=== PATIENT | female | born 1945 | race Caucasian/White ===

== ENCOUNTER 2017-05-19 22:06 | Emergency (ER) | payer MEDICARE ==
[2017-05-19] MEDS ORDERED: Albuterol/Ipratropium NEB.SOL* Albuterol 2.5 MG/Ipratropium 0.5 MG 3 ML INH ONE (22:45)
--- NOTE | 2017-05-19 22:57 | ED ---
Respiratory - HPI Summary HPI Summary: 72F presents with sinus congestion, cough for 3 weeks. She has PMH of asthma and has been using her inhaler more frequently. She has been using prednisone and doxycycline for past week. She admits to scratchy throat. She admits to chills and fatigue. She denies any chest pain. She has intermittent SOB. She denies any abdominal pain, n/v/d. She denies any swelling in her legs. She states the cough is productive. It has been intermittent for past 3 weeks. Her is sick with similar symptoms. She has history of HTN and DM. no history of CHF. - History of Current Complaint Chief Complaint: EDUpperRespComplaint Stated Complaint: COUGH/CONGESTION/DIFFCULTY BREATHING Time Seen by Provider: 05/19/17 22:35 Pain Intensity: 0 - Allergy/Home Medications Allergies/Adverse Reactions: Allergies Allergy/AdvReac Type Severity Reaction Status Date / Time Levofloxacin [From Levaquin] Allergy Intermediate Rash Verified 05/19/17 22:13 Nickel Allergy Itching Verified 05/19/17 22:13 Fluoxetine [From Prozac] AdvReac IRRITABLE Verified 05/19/17 22:13 PMH/Surg Hx/FS Hx/Imm Hx Endocrine/Hematology History: Reports: Hx Diabetes Denies: Hx Anticoagulant Therapy, Hx Thyroid Disease Cardiovascular History: Denies: Hx Congestive Heart Failure, Hx Deep Vein Thrombosis, Hx Hypertension , Hx Myocardial Infarction, Hx Pacemaker/ICD Respiratory History: Reports: Hx Asthma - No inhaler used at this time. Denies: Hx Chronic Obstructive Pulmonary Disease (COPD), Hx Lung Cancer, Hx Pneumonia, Hx Pulmonary Embolism GI History: Denies: Hx Gall Bladder Disease, Hx Gastrointestinal Bleed, Hx Ulcer, Hx Urosepsis History: Denies: Hx Kidney Stones, Hx Renal Disease Neurological History: Denies: Hx Dementia, Hx Migraine, Hx Seizures, Hx Transient Ischemic Attacks (TIA) Psychiatric History: Reports: Hx Anxiety, Hx Depression Denies: Hx Schizophrenia, Hx Bipolar Disorder - Surgical History Surgery Procedure, Year, and Place: uterine ablasion, t&a , hips, ankle, catoracts - Immunization History Date of Tetanus Vaccine: unsure Date of Influenza Vaccine: none Infectious Disease History: No Infectious Disease History: 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 Denies: Traveled Outside the [place] in Last 30 Days - Family History Known Family History: Positive: Cardiac Disease Negative: Hypertension - Social History Alcohol Use: Weekly Substance Use Type: Reports: None Smoking Status (MU): Never Smoked Tobacco Review of Systems Negative: Fever Positive: Nasal Discharge Negative: Chest Pain Positive: Shortness Of Breath, Cough All Other Systems Reviewed And Are Negative: Yes Physical Exam Triage Information Reviewed: Yes Vital Signs On Initial Exam: Initial Vitals Temp Pulse Resp BP Pulse Ox 98.2 F 86 18 111/53 97 05/19/17 22:09 05/19/17 22:09 05/19/17 22:09 05/19/17 22:09 05/19/17 22:09 Vital Signs Reviewed: Yes Appearance: Positive: Well-Appearing Skin: Positive: Warm, Dry Head/Face: Positive: Normal Head/Face Inspection Eyes: Positive: Normal, EOMI, SOLE, Conjunctiva Clear ENT: Positive: Pharynx normal, Nasal congestion, TMs normal Neck: Positive: Supple, Nontender, No Lymphadenopathy Respiratory/Lung Sounds: Positive: Breath Sounds Present, Rhonchi Cardiovascular: Positive: Normal, RRR Abdomen Description: Positive: Nontender, Soft Bowel Sounds: Positive: Present Musculoskeletal: Positive: Normal. Negative: Edema Left, Edema Right Neurological: Positive: Normal Psychiatric: Positive: Normal - Fernando Coma Scale Coma Scale Total: 15 Diagnostics - Vital Signs Vital Signs Temp Pulse Resp BP Pulse Ox 05/19/17 22:09 98.2 F 86 18 111/53 97 - Laboratory Result Diagrams: 05/19/17 23:20 05/19/17 23:20 Lab Statement: Any lab studies that have been ordered have been reviewed, and results considered in the medical decision making process. - Radiology chest Xray Interpretation: No Acute Changes Radiology Interpretation Completed By: ED Physician - EKG No standard instances Cardiac Rate: NL EKG Rhythm: Sinus Rhythm ST Segment: Normal EKG Interpretation: normal sinus rhythm EKG Comparison: No Significant Change Re-Evaluation - Re-Evaluation First Eval Re-Evaluation Time: 00:45 Change: Improved Comment: lungs CTA after treatment and feeling better Disposition - Course Course Of Treatment: 72F presents with sinus congestion, cough for 3 weeks. She has PMH of asthma and has been using her inhaler more frequently. She has been using prednisone and doxycycline for past week. She admits to scratchy throat. She admits to chills and fatigue. She denies any chest pain. She has intermittent SOB. She denies any abdominal pain, n/v/d. She denies any swelling in her legs. She states the cough is productive. It has been intermittent for past 3 weeks. Her is sick with similar symptoms. She has history of HTN and DM. no history of CHF. on exam some congestion in lungs heard. sinuses congested. ekg normal. chest xray read as normal by me. gave neb treatment. lungs CTA. labs wbc 13. normal troponin, d-dimer, bnp normal. will have continue doxycyline. add on robitussin for cough, flonase for nasal congestion, and duonebs to use at home. told to follow up with primary within 5 days. patient understand and agrees with plan. - Differential Dx - Cardiopulmonary Differential Diagnoses - Cardiopulmonary: Bronchitis, Influenza, Lower Resp Infection - Diagnoses Provider Diagnoses: Upper respiratory infection Discharge - Discharge Plan Condition: Good Disposition: HOME Prescriptions: Albuterol/Ipratropium NEB.PRIYA* [Duoneb (Albuterol 2.5 MG/Ipratropium 0.5 MG)] 1 neb INH Q6H PRN #20 neb.priya PRN Reason: Sob/Wheezing Fluticasone NASAL SPRAY 50MCG* [Flonase NASAL SPRAY 50MCG*] 1 spray BOTH NARES DAILY #1 btl Guaifenesin-Codeine [Guaiatussin AC] 5 ml PO Q6HR PRN #100 ml MDD 20ml PRN Reason: Cough Patient Education Materials: Upper Respiratory Infection (ED) Referrals: Jm Pizarro MD [Primary Care Provider] - Additional Instructions: Take cough medication 5ml (1 teaspoon) every 6 hours as needed cough Use intranasal steroid one spray each nostril once a day Use inhaler up to two puffs every 4-6 hours for cough or use nebulizer treatment every 6 hours for cough Use saline in the nose for nasal congestion and to prevent nose bleeds Use humidifier or place warm bowls of water around the room for cough Take Tylenol for pain every 6 hours Follow up with primary within 5 days Return to ED if develop any new or worsening symptoms
[2017-05-19 23:45] LABS: Hematocrit 38 % (35-47); Hemoglobin 12.6 g/dl (12.0-16.0); Mean Corpuscular HGB Conc 33 g/dl (31-36); Mean Corpuscular Hemoglobin 31 pg (27-31); Mean Corpuscular Volume 93 fL (80-97); Mean Platelet Volume 8 um3 (7.4-10.4); Red Cell Distribution Width 15 % (10.5-15); White Blood Count 13.6 10^3/ul (3.5-10.8)
[2017-05-20 00:05] LABS: Troponin I 0.01 ng/mL (<0.04)
[2017-05-20] MEDS ORDERED: guaiFENesin/CODIEN 100MG-10MG* 5 ML UDC PO ONE (00:19)
[2017-05-20 00:39] VITALS: BP 95/63
[2017-05-20 00:59] LABS: Potassium 4.1 mmol/L (3.5-5.0)
[2017-05-20 01:00] LABS: BUN/Creatinine Ratio 20.8 (8-20); EGFR African American 69.1 (>60); EGFR Non-African American 53.7 (>60); Globulin 3.1 g/dL (2-4); Total Bilirubin 0.3 mg/dL (0.2-1.0); Total Protein 7.1 g/dL (6.4-8.9)
--- NOTE | 2017-05-20 08:06 | RAD ---
INDICATION: Cough. Congestion. Dyspnea. History of asthma COMPARISON: June 22, 2013 TECHNIQUE: Dual energy PA and routine lateral views of the chest were obtained. REPORT: Elevated lung volumes. Mild prominence of interstitial markings. Small alveolar opacity at the peripheral LEFT lower lung zone contiguous with the cardiac margin is indeterminate. Negative for pleural effusion or pneumothorax. Negative for cardiomegaly. Unremarkable central pulmonary vasculature. Multilevel thoracic degenerative spondylosis. IMPRESSION: Small focal region of alveolar opacity at the LEFT lung base new compared with the prior exam may represent an inflammatory infiltrate or potentially a pulmonary nodule. Correlate with clinical assessment and consider CT for further evaluation. Results discussed with Charge Nurse Silva in the ED at 05/20/2017 8:02 AM EST
== END 2017-05-20 01:11 | disposition home or self-care (01) ==
LOC: ED 22:06
DX: J06.9 Acute upper respiratory infection, unspecified (principal); F32.9 Major depressive disorder, single episode, unspecified; F41.9 Anxiety disorder, unspecified; I10 Essential (primary) hypertension; E11.9 Type 2 diabetes mellitus without complications; K75.9 Inflammatory liver disease, unspecified
CPT/HCPCS: 36415; 71020; 80053; 83605; 83880; 84484; 85025; 85379; 93005; 94640; 99282; A9270-GY

== ENCOUNTER 2017-05-25 20:22 | Emergency (ER) | payer MEDICARE ==
[2017-05-25] MEDS ORDERED: methylPREDNISolone 125 MG* 2 ML VIAL IV ONE (23:29)
[2017-05-25] MEDS ORDERED: Albuterol/Ipratropium NEB.SOL* Albuterol 2.5 MG/Ipratropium 0.5 MG 3 ML INH ONE (23:29)
[2017-05-25] MEDS ORDERED: Benzonatate CAP* 100 MG PO ONE (23:31)
[2017-05-26 00:30] LABS: Hematocrit 35 % (35-47); Hemoglobin 11.4 g/dl (12.0-16.0); Mean Corpuscular HGB Conc 33 g/dl (31-36); Mean Corpuscular Hemoglobin 31 pg (27-31); Mean Corpuscular Volume 93 fL (80-97); Mean Platelet Volume 8 um3 (7.4-10.4); Red Blood Count 3.74 10^6/ul (4.0-5.4); Red Cell Distribution Width 14 % (10.5-15); White Blood Count 11.9 10^3/ul (3.5-10.8)
[2017-05-26 00:39] LABS: Albumin 3.7 g/dL (3.2-5.2); BUN/Creatinine Ratio 26.6 (8-20); Calcium 8.9 mg/dL (8.6-10.3); EGFR African American 75.1 (>60); EGFR Non-African American 58.4 (>60); Globulin 2.9 g/dL (2-4); Potassium 4.1 mmol/L (3.5-5.0); Total Bilirubin 0.3 mg/dL (0.2-1.0); Total Protein 6.6 g/dL (6.4-8.9); Troponin I 0.01 ng/mL (<0.04)
[2017-05-26] MEDS ORDERED: Azithromycin TAB* 250 MG PO ONE (01:05)
[2017-05-26] MEDS ORDERED: Ondansetron ODT TAB* 4 MG ONE (01:56)
[2017-05-26] MEDS ORDERED: Ondansetron ODT TAB* 4 MG PO ONE (01:57)
[2017-05-26] MEDS ORDERED: guaiFENesin/CODIEN 100MG-10MG* 5 ML UDC PO ONE (02:22)
[2017-05-26 03:05] VITALS: BP 131/58
--- NOTE | 2017-05-26 05:29 | ED ---
Nathan Davis Gabriel, scribed for Kyree Cook on 05/25/17 at 2317 . Respiratory - HPI Summary HPI Summary: This patient is a 72 year old F presenting to [facility] accompanied by with a chief complaint of a nonproductive cough since last week. She was seen for it then but states it has been getting worse. Patient reports SOB, subjective fever, and stomach ache. The patient rates the pain 6/10 in severity. - History of Current Complaint Chief Complaint: EDUpperRespComplaint Stated Complaint: COUGH, SINUS PAIN Time Seen by Provider: 05/25/17 22:54 Hx Obtained From: Patient Onset/Duration: Lasting Weeks - 1, Still Present Timing: Constant Pain Intensity: 0 Character: Cough (Nonproductive) Sputum Amount: Small Associated Signs and Symptoms: SOB - Allergy/Home Medications Allergies/Adverse Reactions: Allergies Allergy/AdvReac Type Severity Reaction Status Date / Time Levofloxacin [From Levaquin] Allergy Intermediate Rash Verified 05/19/17 22:13 Nickel Allergy Itching Verified 05/19/17 22:13 Fluoxetine [From Prozac] AdvReac IRRITABLE Verified 05/19/17 22:13 PMH/Surg Hx/FS Hx/Imm Hx Previously Healthy: No Endocrine/Hematology History: Reports: Hx Diabetes Denies: Hx Anticoagulant Therapy, Hx Thyroid Disease Cardiovascular History: Denies: Hx Atrial Fibrillation, Hx Congestive Heart Failure, Hx Deep Vein Thrombosis, Hx Hypercholesterolemia, Hx Hypertension, Hx Myocardial Infarction, Hx Pacemaker/ICD Respiratory History: Reports: Hx Asthma - No inhaler used at this time., Hx Chronic Obstructive Pulmonary Disease (COPD) Denies: Hx Lung Cancer, Hx Pneumonia, Hx Pulmonary Embolism GI History: Denies: Hx Gall Bladder Disease, Hx Gastrointestinal Bleed, Hx Ulcer, Hx Urosepsis History: Denies: Hx Kidney Stones, Hx Renal Disease Neurological History: Denies: Hx Dementia, Hx Migraine, Hx Seizures, Hx Transient Ischemic Attacks (TIA) Psychiatric History: Reports: Hx Anxiety, Hx Depression Denies: Hx Schizophrenia, Hx Bipolar Disorder - Surgical History Surgery Procedure, Year, and Place: uterine ablasion, t&a , hips, ankle, catoracts - Immunization History Date of Tetanus Vaccine: not utd Date of Influenza Vaccine: none Infectious Disease History: No Infectious Disease History: 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 Denies: Traveled Outside the [place] in Last 30 Days - Family History Known Family History: Positive: Cardiac Disease Negative: Hypertension - Social History Alcohol Use: Weekly Substance Use Type: Reports: None Smoking Status (MU): Never Smoked Tobacco Review of Systems Positive: Fever - subjective Positive: Shortness Of Breath, Cough Positive: Other - stomach ache All Other Systems Reviewed And Are Negative: Yes Physical Exam - Summary Physical Exam Summary: Appearance: Well appearing, no pain distress Skin: warm, dry, reflects adequate perfusion Head/face: normal Eyes: EOMI, SOLE ENT: normal Neck: supple, non-tender Respiratory: CTA, breath sounds present Cardiovascular: RRR, pulses symmetrical Abdomen: non-tender, soft Bowel: present Musculoskeletal: normal, strength/ROM intact Neuro: normal, sensory motor intact, A&Ox3 Triage Information Reviewed: Yes Vital Signs On Initial Exam: Initial Vitals Temp Pulse Resp BP Pulse Ox 98.0 F 100 20 135/56 95 05/25/17 20:26 05/25/17 20:26 05/25/17 20:26 05/25/17 20:26 05/25/17 20:26 Vital Signs Reviewed: Yes - Fernando Coma Scale Coma Scale Total: 15 Diagnostics - Vital Signs Vital Signs Temp Pulse Resp BP Pulse Ox 05/25/17 22:29 98.4 F 103 20 126/62 97 05/25/17 20:26 98.0 F 100 20 135/56 95 - Laboratory Lab Results: Lab Results 05/25/17 05/26/17 05/26/17 Range/Units 00:01 00:01 00:01 WBC 11.9 H (3.5-10.8) 10^3/ul RBC 3.74 L (4.0-5.4) 10^6/ul Hgb 11.4 L (12.0-16.0) g/dl Hct 35 (35-47) % MCV 93 (80-97) fL MCH 31 (27-31) pg MCHC 33 (31-36) g/dl RDW 14 (10.5-15) % Plt Count 249 (150-450) 10^3/ul MPV 8 (7.4-10.4) um3 Neut % (Auto) 42.1 (38-83) % Lymph % (Auto) 43.6 (25-47) % [place] % (Auto) 8.4 (1-9) % Eos % (Auto) 5.3 (0-6) % Baso % (Auto) 0.6 (0-2) % Absolute Neuts (auto) 5.0 (1.5-7.7) 10^3/ul Absolute Lymphs (auto) 5.2 H (1.0-4.8) 10^3/ul Absolute Monos (auto) 1.0 H (0-0.8) 10^3/ul Absolute Eos (auto) 0.6 (0-0.6) 10^3/ul Absolute Basos (auto) 0.1 (0-0.2) 10^3/ul Absolute Nucleated RBC 0 10^3/ul Nucleated RBC % 0 INR (Anticoag Therapy) 0.86 L (0.89-1.11) APTT 30.9 (26.0-36.3) seconds D-Dimer, Quantitative < 200 (Less Than 230) ng/mL Sodium (133-145) mmol/L Potassium (3.5-5.0) mmol/L Chloride (101-111) mmol/L Carbon Dioxide (22-32) mmol/L Anion Gap (2-11) mmol/L BUN (6-24) mg/dL Creatinine (0.51-0.95) mg/dL Est GFR ( Amer) (>60) Est GFR (Non-Af Amer) (>60) BUN/Creatinine Ratio (8-20) Glucose (70-100) mg/dL Lactic Acid (0.5-2.0) mmol/L Calcium (8.6-10.3) mg/dL Total Bilirubin (0.2-1.0) mg/dL AST (13-39) U/L ALT (7-52) U/L Alkaline Phosphatase (34-104) U/L Troponin I (<0.04) ng/mL B-Natriuretic Peptide 25 ( - 100) pg/mL Total Protein (6.4-8.9) g/dL Albumin (3.2-5.2) g/dL Globulin (2-4) g/dL Albumin/Globulin Ratio (1-3) Influenza A (Rapid) (Negative) Influenza B (Rapid) (Negative) 05/26/17 05/26/17 05/26/17 Range/Units 00:01 00:01 01:28 WBC (3.5-10.8) 10^3/ul RBC (4.0-5.4) 10^6/ul Hgb (12.0-16.0) g/dl Hct (35-47) % MCV (80-97) fL MCH (27-31) pg MCHC (31-36) g/dl RDW (10.5-15) % Plt Count (150-450) 10^3/ul MPV (7.4-10.4) um3 Neut % (Auto) (38-83) % Lymph % (Auto) (25-47) % [place] % (Auto) (1-9) % Eos % (Auto) (0-6) % Baso % (Auto) (0-2) % Absolute Neuts (auto) (1.5-7.7) 10^3/ul Absolute Lymphs (auto) (1.0-4.8) 10^3/ul Absolute Monos (auto) (0-0.8) 10^3/ul Absolute Eos (auto) (0-0.6) 10^3/ul Absolute Basos (auto) (0-0.2) 10^3/ul Absolute Nucleated RBC 10^3/ul Nucleated RBC % INR (Anticoag Therapy) (0.89-1.11) APTT (26.0-36.3) seconds D-Dimer, Quantitative (Less Than 230) ng/mL Sodium 137 (133-145) mmol/L Potassium 4.1 (3.5-5.0) mmol/L Chloride 103 (101-111) mmol/L Carbon Dioxide 28 (22-32) mmol/L Anion Gap 6 (2-11) mmol/L BUN 25 H (6-24) mg/dL Creatinine 0.94 (0.51-0.95) mg/dL Est GFR ( Amer) 75.1 (>60) Est GFR (Non-Af Amer) 58.4 (>60) BUN/Creatinine Ratio 26.6 H (8-20) Glucose 129 H (70-100) mg/dL Lactic Acid 1.9 (0.5-2.0) mmol/L Calcium 8.9 (8.6-10.3) mg/dL Total Bilirubin 0.30 (0.2-1.0) mg/dL AST 11 L (13-39) U/L ALT 11 (7-52) U/L Alkaline Phosphatase 59 (34-104) U/L Troponin I 0.01 (<0.04) ng/mL B-Natriuretic Peptide ( - 100) pg/mL Total Protein 6.6 (6.4-8.9) g/dL Albumin 3.7 (3.2-5.2) g/dL Globulin 2.9 (2-4) g/dL Albumin/Globulin Ratio 1.3 (1-3) Influenza A (Rapid) Negative (Negative) Influenza B (Rapid) Negative (Negative) Result Diagrams: 05/26/17 00:01 05/26/17 00:01 Lab Statement: Any lab studies that have been ordered have been reviewed, and results considered in the medical decision making process. - Radiology CXR Radiology Interpretation Completed By: Radiologist - Right lower lobe infiltrate. - EKG 12:00 Cardiac Rate: NL EKG Rhythm: Sinus Rhythm - NSR at 80 bpm EKG Interpretation: No acute changes Re-Evaluation - Re-Evaluation First Eval Re-Evaluation Time: 01:10 Change: Unchanged - Discussed lab results with patient. Disposition - Course Assessment/Plan: This patient is a 72 year old F presenting to [facility] accompanied by with a chief complaint of nonproductive cough since last week. An EKG reveals NSR at 80. CXR reveals, Right lower lobe infiltrate. Blood work was drawn with no significant abnormalities. In the ED course the patient was given Albuterol, , Benzonatate, , and Ondansetron. Patient will be discharged with prescription for Guaifenesin/ Codeine, Azithromycin, and Methylprednisolone and follow up from PCP. The patient is agreeable with this plan. - Differential Dx - Cardiopulmonary Differential Diagnoses - Cardiopulmonary: Asthma, Bronchitis, Exacerbation Of COPD, Lower Resp Infection, Myocardial Infarction, Pulmonary Edema - Diagnoses Provider Diagnoses: PNA (pneumonia), COPD exacerbation, Cough Discharge - Discharge Plan Condition: Stable Disposition: HOME Prescriptions: Azithromycin TAB* [Zithromax TAB (Z-DEBRA) 250 mg #6 tabs] 250 mg PO DAILY #4 tab Guaifenesin-Codeine [Codeine/Guaifenesin 100-10 mg/5Ml] 1 roland PO BID #10 roland MDD 2 Methylprednisolone [Medrol Dosepak 4 MG*] 0 mg PO .SEE DEBRA INSTRUCTION #1 tab Patient Education Materials: Guaifenesin (By mouth), Azithromycin (By mouth), Methylprednisolone (By mouth), Codeine (By mouth), Bronchiolitis (ED) Referrals: Katarina Gresham TOOL SMITH [Primary Care Provider] - Additional Instructions: RETURN TO THE EMERGENCY DEPARTMENT FOR CHANGING OR WORSENING SYMPTOMS.Follow up with your primary care provider in 3 days. The documentation as recorded by the Nathan glover Gabriel accurately reflects the service I personally performed and the decisions made by , Kyree Cook.
--- NOTE | 2017-05-26 07:50 | RAD ---
INDICATION: Shortness of breath. COMPARISON: Comparison is made with a prior chest x-ray study from May 19, 2017. TECHNIQUE: A portable view of the chest was obtained. FINDINGS: Cardiac and mediastinal contours appear to be within normal limits. There is a small infiltrate the right lung base. No pleural effusion is seen. IMPRESSION: SMALL RIGHT BASILAR INFILTRATE.
== END 2017-05-26 02:35 | disposition home or self-care (01) ==
LOC: ED 20:22
DX: J18.9 Pneumonia, unspecified organism (principal); J44.1 Chronic obstructive pulmonary disease with (acute) exacerbation; E11.9 Type 2 diabetes mellitus without complications; J45.909 Unspecified asthma, uncomplicated
CPT/HCPCS: 36415; 71010; 80053; 83605; 83880; 84484; 85025; 85379; 85610; 85730; 87502; 93005; 94640; 96374; 99283; A9270-GY; J2930

== ENCOUNTER 2017-09-25 18:46 | Emergency (ER) | payer MEDICARE ==
[2017-09-25] MEDS ORDERED: Cyclobenzaprine TAB* 10 MG PO ONE (22:07)
[2017-09-25] MEDS ORDERED: traMADol TAB* 50 MG PO ONE (22:07)
[2017-09-25 22:54] LABS: Urine Appearance Clear; Urine Blood Negative (Negative); Urine Color Straw; Urine Ketones Negative (Negative); Urine Protein Negative (Negative); Urine Specific Gravity 1.009 (1.010-1.030); Urine Urobilinogen Negative (Negative)
[2017-09-25] MEDS ORDERED: Dexamethasone IV* 4 MG/ML 1 ML (4 MG) IV SLOW PU ONE (23:49)
[2017-09-25] MEDS ORDERED: Diazepam SYRINGE* 5 MG/ML 2 ML SYRINGE (10 MG total) IV ONE (23:54)
[2017-09-26] MEDS ORDERED: Diazepam INJ (NF) 5 MG/ML 10 ML VIAL (50 MG TOTAL) ONE (00:17)
[2017-09-26] MEDS ORDERED: Diazepam INJ (NF) 5 MG/ML 10 ML VIAL (50 MG TOTAL) IV ONE (01:00)
[2017-09-26] MEDS ORDERED: Morphine INJ* 4 MG/ML 1 ML SYRINGE (NEW SYRINGE VERSION) IM ONE (01:46)
[2017-09-26] MEDS ORDERED: Morphine INJ* 2 MG/ML 1 ML CARPUJECT ONE (01:51)
--- NOTE | 2017-09-26 02:11 | ED ---
Back Pain - HPI Summary HPI Summary: Patient is a 72-year-old female with a history of chronic back pain presents to the ED with acute on chronic back pain after attempting exercises for her knees. She is to have knee surgery next week. She states after her physical therapy and exercises, she developed right-sided low back pain which does not radiate into the leg, denies any numbness or tingling or weakness in the extremity. While she has had a history of spinal stenosis and degenerative disc disease, she has never taken any medication for this. She is being followed by a back pain specialist. She has not tried to take any medication for the discomfort and has not been using heat. Positioning helps, but does not resolve her symptoms. Symptoms are worse with ambulation. Alleviated with certain positions intermittently. She denies any bladder or bowel dysfunction. She states she has been urinating more frequently, but denies any burning urination or other UTI like symptoms. Denies any CVA tenderness. She has never had kidney function problems or kidney stones. - History of Current Complaint Chief Complaint: EDBackInjuryPain Stated Complaint: BACK PAIN Time Seen by Provider: 09/25/17 21:55 Hx Obtained From: Patient Hx Last Menstrual Period: "years ago." Onset/Duration: Sudden Onset Onset/Duration: Started Days Ago Timing: Constant Back Pain Location: Is Discrete @ - right low back Pain Intensity: 8 Pain Scale Used: 0-10 Numeric Character: Aching Aggravating Symptom(s): Movement, Lifting, Bending, Walking Alleviating Symptom(s): Rest, Position Associated Signs And Symptoms: Positive: Negative, Pain with Weight Bearing. Negative: Weakness, Numbness, Tingling, Abdominal Pain, Bladder Incontinence, Bowel Incontinence, Weight Loss - Risk Factors AAA Risk Factors: Negative TAD Risk Factors: Negative Cauda Equina Risk Factors: Negative Epidural Abscess Risk Factors: Negative - Allergies/Home Medications Allergies/Adverse Reactions: Allergies Allergy/AdvReac Type Severity Reaction Status Date / Time celecoxib [From Celebrex] Allergy Swelling Verified 09/25/17 21:54 fluoxetine [From Prozac] Allergy irritable Verified 09/25/17 21:54 levofloxacin [From Levaquin] Allergy Rash Verified 09/25/17 21:54 nickel Allergy Itching Verified 09/25/17 21:54 Home Medications: Home Medications Albuterol inh POWDER (NF) [Proair Respiclick] 2 puff INH Q4HR PRN 09/25/17 [ History Confirmed 09/25/17] BuPROPion XL* [Bupropion XL*] 300 mg PO DAILY 09/25/17 [History Confirmed ] Cholecalciferol (Vitamin D3) [Vitamin D3] 1,000 unit PO DAILY 09/25/17 [History Confirmed 09/25/17] Omeprazole CAP* [Prilosec CAP* 20 MG] 40 mg PO BID 09/25/17 [History Confirmed 09/25/17] Simvastatin TAB(NF) [Zocor(NF)] 20 mg PO DAILY 09/25/17 [History Confirmed 09/25] metFORMIN* [Glucophage 500 MG TAB *] 1,000 mg PO BID 09/25/17 [History Confirmed 09/25/17] PMH/Surg Hx/FS Hx/Imm Hx Previously Healthy: Yes Endocrine/Hematology History: Reports: Hx Diabetes Denies: Hx Anticoagulant Therapy, Hx Thyroid Disease Cardiovascular History: Denies: Hx Atrial Fibrillation, Hx Congestive Heart Failure, Hx Deep Vein Thrombosis, Hx Hypercholesterolemia, Hx Hypertension, Hx Myocardial Infarction, Hx Pacemaker/ICD Respiratory History: Reports: Hx Asthma - No inhaler used at this time., Hx Chronic Obstructive Pulmonary Disease (COPD) Denies: Hx Lung Cancer, Hx Pneumonia, Hx Pulmonary Embolism GI History: Denies: Hx Gall Bladder Disease, Hx Gastrointestinal Bleed, Hx Ulcer, Hx Urosepsis History: Denies: Hx Kidney Stones, Hx Renal Disease Neurological History: Denies: Hx Dementia, Hx Migraine, Hx Seizures, Hx Transient Ischemic Attacks (TIA) Psychiatric History: Reports: Hx Anxiety, Hx Depression Denies: Hx Schizophrenia, Hx Bipolar Disorder - Surgical History Surgery Procedure, Year, and Place: uterine ablasion, t&a , hips, ankle, catoracts - Immunization History Date of Tetanus Vaccine: not utd Date of Influenza Vaccine: none Hx Pertussis Vaccination: No Immunizations Up to Date: Unable to Obtain/Confirm Infectious Disease History: No Infectious Disease History: 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 Denies: Traveled Outside the [place] in Last 30 Days - Family History Known Family History: Positive: Cardiac Disease Negative: Hypertension - Social History Occupation: Unemployed Lives: With Family Alcohol Use: None Hx Substance Use: No Substance Use Type: Reports: None Hx Tobacco Use: No Smoking Status (MU): Never Smoked Tobacco Review of Systems Constitutional: Negative Negative: Fever, Chills, Fatigue, Skin Diaphoresis Eyes: Negative Cardiovascular: Negative Gastrointestinal: Negative Positive: see HPI, frequency Positive: Arthralgia, Myalgia Skin: Negative Neurological: Negative All Other Systems Reviewed And Are Negative: Yes Physical Exam - Summary Physical Exam Summary: Thorough physical exam was performed, focusing on thoracic and lumbar special tests and ROM. Due to patient pain around injury, physical exam was limited. Limited ROM. Flip Test negative. Straight leg raise positive. Kernig test positive. Negative Babinksi. Hip flexion and extension, knee extension, dorsiflexion, great toe extension and plantar flexion intact. Rotating at hips limited d/t pain. Nerve roots L4-S2 reflexes intact. L1-S2 nerve root sensory intact. No saddle anesthesia. Gait normal. Triage Information Reviewed: Yes Vital Signs On Initial Exam: Initial Vitals Temp Pulse Resp BP Pulse Ox 98.3 F 64 20 161/66 96 09/25/17 18:48 09/25/17 18:48 09/25/17 18:48 09/25/17 18:48 09/25/17 18:48 Vital Signs Reviewed: Yes Appearance: Positive: Well-Appearing, Well-Nourished Skin: Positive: Warm, Skin Color Reflects Adequate Perfusion Head/Face: Positive: Normal Head/Face Inspection Eyes: Positive: EOMI, SOLE, Conjunctiva Clear Neck: Positive: Supple, No Lymphadenopathy Respiratory/Lung Sounds: Positive: Clear to Auscultation, Breath Sounds Present Cardiovascular: Positive: RRR, Pulses are Symmetrical in both Upper and Lower Extremities Musculoskeletal: Positive: Pain @ - right sided low back pain without radiation Neurological: Positive: Normal, Sensory/Motor Intact, Alert, Oriented to Person Place, Time, CN Intact II-III, Reflexes Intact, NV Bundle Intact Distally, Speech Normal Diagnostics - Vital Signs Vital Signs Temp Pulse Resp BP Pulse Ox 09/26/17 01:55 20 09/26/17 00:22 18 09/25/17 23:25 59 16 122/64 98 09/25/17 18:48 98.3 F 64 20 161/66 96 - Laboratory Lab Results: Lab Results 09/25/17 Range/Units 22:38 Urine Color Straw Urine Appearance Clear Urine pH 5.0 (5-9) Ur Specific [place] 1.009 L (1.010-1.030) Urine Protein Negative (Negative) Urine Ketones Negative (Negative) Urine Blood Negative (Negative) Urine Nitrate Negative (Negative) Urine Bilirubin Negative (Negative) Urine Urobilinogen Negative (Negative) Ur Leukocyte Esterase Negative (Negative) Urine Glucose Negative (Negative) Lab Statement: Any lab studies that have been ordered have been reviewed, and results considered in the medical decision making process. Back Pain Course/Dx - Course Course Of Treatment: During the course of treatment, the patient is evaluated for acute right-sided low back pain. Denies any history of trauma. However, while she was having her normal physical therapy for her knees she was pushing 200 pound weights with her feet and states she must have strained the back at that time. She is requesting a CT scan on this date. UA obtained which is unremarkable. She has not taken medication prior to arrival. CTA obtained which shows no fracture or subluxation. Mild level scoliosis of the lumbar spine with bony alignment maintained. There are large posterior disc osteophyte complexes at L4/L5 and L5/S1 causing severe central canal stenosis. Additional posterior disc osteophyte complexes at T11/L4 causing moderate central canal stenosis. Pain was acute at onset. During her course in the ED after maintaining ambulation into her room, after provider is evaluated in performed physical exam, she became unable to ambulate on her own and required the assistance of 2 RNs to use the restroom. She is given tramadol and Flexeril without relief of pain. She continues to complain of pain and states now it is much worse. She is given dexamethasone and Valium with relief. On further evaluation, provider discussed prescriptions for at home and she is agreeable to go home. However, upon attempting to use the restroom, she states her pain returned and is not comfortable going home at this time. Morphine 4 mg given. Continues to have a 9 out of 10, sharp and stabbing pain upon movement. Discussed the case with the hospitalist to admit for pain control. While awaiting admission, patient agrees to go home with prescriptions. I discussed at length the medications that she will be given and the side effects of those medications. I have offered an admission due to her pain, she declines this. She will return for any worsening or changing symptoms. Otherwise, she will follow-up with her PCP early next week. At home prescriptions I have given her our Valium and prednisone as these medications improved her symptoms the most while in the ED. CT results show negative for lumbar sacral spine fracture spondylolithiasis. Multilevel advanced degenerative spondylosis the posterior element osteoarthritis with associated required central canal and foraminal stenosis as described. Continues to deny bladder or bowel dysfunction on discharge. - Diagnoses Differential Diagnosis/HQI/PQRI: Positive: Herniated Disc, Strain, Sprain, Other - sciatica Provider Diagnoses: Sciatic leg pain Discharge - Sign-Out/Discharge Documenting (check all that apply): Discharge - Discharge Plan Condition: Critical Disposition: HOME Prescriptions: Diazepam TAB(*) [Valium TAB(*)] 10 mg PO Q8H PRN #12 tab MDD 3 PRN Reason: Spasms predniSONE TAB* [Deltasone TAB*] 20 mg PO DAILY #12 tab Patient Education Materials: Lumbar Spinal Stenosis (ED), Muscle Spasm (ED) Referrals: Katarina Gresham NP [Primary Care Provider] - Additional Instructions: Moist heat to the area Prednisone: Thursday and Thursday: Take 3 tabs in the morning Thursday and Thursday: Take 2 tabs in the morning Thursday and : Take 1 tab in the morning Valium: Take up to three times daily for pain - Billing Disposition and Condition Condition: CRITICAL Disposition: HOME
[2017-09-26 02:26] VITALS: BP 151/76
[2017-09-26] MEDS ORDERED: Methocarbamol TAB* 500 MG PO ONE (02:42)
--- NOTE | 2017-09-26 08:09 | RAD ---
Indication: Low back pain since injury on Thursday. Comparison: No relevant prior exams available on the [facility] PACS for comparison. Technique: Noncontrast CT lumbar sacral spine. Multiplanar reformation. Report: 1.4 cm low-density LEFT adrenal lesion is consistent with a benign adenoma. Normal variant LEFT extrarenal pelvis. Negative for hydronephrosis. Negative for paravertebral hematoma. Negative for fracture or spondylolysis at any level. Normal vertebral alignment without spondylolisthesis at any level. Diffuse advanced degenerative spondylosis and facet joint osteoarthritis. Rostrocaudal subluxation due to disc height loss with resulting secondary articulation between the spinous processes most prominent at L2-L3 through L3-L4 with secondary degenerative arthropathy. T12-L1: Moderate dorsal disc bulge osteophyte complex and posterior element hypertrophic arthropathy results in mild acquired central canal stenosis. Degenerative spondylosis and facet joint osteoarthritis results in moderate bilateral foraminal stenosis. L1-L2: Moderately large dorsal disc bulge osteophyte complex and posterior element hypertrophic arthropathy results in moderate acquired central canal stenosis and moderate bilateral foraminal stenosis. L2-L3: Moderately large dorsal disc bulge osteophyte complex and posterior element hypertrophic arthropathy results in severe acquired central canal stenosis and moderate bilateral foraminal stenosis. L3-L4: Moderately large dorsal disc bulge osteophyte complex and posterior element hypertrophic arthropathy results in severe acquired central canal stenosis and moderate bilateral foraminal stenosis. L4-L5: Large dorsal disc bulge and vertebral endplate osteophytes along with posterior element hypertrophic arthropathy results in severe acquired central canal stenosis and moderate bilateral foraminal stenosis. L5-S1: Large dorsal disc bulge osteophyte complex and posterior element hypertrophy results in severe acquired central canal stenosis and severe bilateral foraminal stenosis. IMPRESSION: 1. Negative for lumbar sacral spine fracture or spondylolisthesis. 2. Multilevel advanced degenerative spondylosis and posterior element osteoarthritis with associated acquired central canal and foraminal stenosis as described.
== END 2017-09-26 03:03 | disposition home or self-care (01) ==
LOC: ED 18:46
DX: M54.30 Sciatica, unspecified side (principal); G89.29 Other chronic pain; M54.9 Dorsalgia, unspecified
CPT/HCPCS: 72131; 81003; 96374; 96375; 99283; A9270-GY; J1100; J2270; J3360

== ENCOUNTER 2018-01-13 21:11 | Emergency (ER) | payer MEDICARE ==
[2018-01-13 21:27] VITALS: BP 135/51
[2018-01-13] MEDS ORDERED: Erythromycin OPTH OINT* APPLIC OINT LEFT EYE ONE (21:48)
--- NOTE | 2018-01-13 21:58 | UC ---
Eye Complaint HPI - HPI Summary HPI Summary: 72 yo female with left eye irritation x 1 week now red am crusty d/c some itch no photophobia some lid edema - History of Current Complaint Chief Complaint: UCEye Stated Complaint: LEFT EYE ISSUE Time Seen by Provider: 01/13/18 21:42 Hx Obtained From: Patient Hx Last Menstrual Period: "years ago." Onset/Duration: Gradual Onset, Lasting Days Timing: Constant Severity Initially: Mild Pain Intensity: 2 Pain Scale Used: 0-10 Numeric Location of Injury: Conjunctiva, Eye Lid (lower) Character: Dull Alleviating Factor(s): Nothing Associated Signs And Symptoms: Positive: Drainage (Purulent) Eyes: 1 - subconjunctival hemorrhage - Risk Factors Penetrating Injury Risk Factor: Negative Globe Rupture Risk Factors: Negative - Allergies/Home Medications Allergies/Adverse Reactions: Allergies Allergy/AdvReac Type Severity Reaction Status Date / Time celecoxib [From Celebrex] Allergy Swelling Verified 01/13/18 21:28 fluoxetine [From Prozac] Allergy irritable Verified 01/13/18 21:28 levofloxacin [From Levaquin] Allergy Rash Verified 01/13/18 21:28 nickel Allergy Itching Verified 01/13/18 21:28 PMH/Surg Hx/FS Hx/Imm Hx Endocrine History: Diabetes, Dyslipidemia Cardiovascular History: Hypertension Other History Of: Negative For: HIV, Hepatitis B, Hepatitis C, Anticoagulant Therapy - Surgical History Surgical History: Yes Surgery Procedure, Year, and Place: uterine ablasion, t&a , hips, ankle, catoracts - Family History Known Family History: Positive: Cardiac Disease Negative: Hypertension - Social History Alcohol Use: None Substance Use Type: None Smoking Status (MU): Never Smoked Tobacco Review of Systems Constitutional: Negative Skin: Negative Eyes: Drainage ENT: Negative Respiratory: Negative Cardiovascular: Negative Gastrointestinal: Negative Genitourinary: Negative Motor: Negative Neurovascular: Negative Musculoskeletal: Negative Neurological: Negative Psychological: Negative Is Patient Immunocompromised?: No All Other Systems Reviewed And Are Negative: Yes Physical Exam Triage Information Reviewed: Yes Appearance: Well-Appearing, No Pain Distress, Well-Nourished Vital Signs: Initial Vital Signs Temp 98.2 F 01/13/18 21:24 Pulse 69 01/13/18 21:24 Resp 16 01/13/18 21:24 BP 135/51 01/13/18 21:24 Pulse Ox 98 01/13/18 21:24 Vital Signs Reviewed: Yes Eyes: Positive: Conjunctiva Inflamed - L, Discharge - L, Other: - eomi/perrl, no fb noted, Eye Complaint Course/Dx - Differential Dx/Diagnosis Provider Diagnoses: left concjunctivitis. left subconjunctival hemorrhage Discharge - Sign-Out/Discharge Documenting (check all that apply): Patient Departure - Discharge Plan Condition: Stable Disposition: HOME Prescriptions: Polymyx/Trimethoprim OPTH* [Polytrim OPHTH*] 1 - 2 drop LEFT EYE QID #1 btl Patient Education Materials: Subconjunctival Hemorrhage (ED), Conjunctivitis ( ED) Referrals: Bi Govea MD [Medical Doctor] - Sarah Zepeda MD [Medical Doctor] - 1 Day (1-2 days) Additional Instructions: zaditor eye drops (OTC) I suggest you get rechecked in 1-2 days by an eye doctor try to avoid rubbing eyes no eye makeup - Billing Disposition and Condition Condition: STABLE Disposition: Home
== END 2018-01-13 22:06 | disposition home or self-care (01) ==
LOC: UCCORT 21:11
DX: H10.9 Unspecified conjunctivitis (principal); H11.32 Conjunctival hemorrhage, left eye; E11.9 Type 2 diabetes mellitus without complications; I10 Essential (primary) hypertension; Z88.6 Allergy status to analgesic agent; Z88.8 Allergy status to other drugs, medicaments and biological substances; Z88.1 Allergy status to other antibiotic agents; Z91.09 Other allergy status, other than to drugs and biological substances
CPT/HCPCS: 99212; A9270-GY; G0463

== ENCOUNTER 2018-10-01 19:27 | Emergency (ER) | payer MEDICARE ==
[2018-10-01 20:22] VITALS: BP 133/54
--- NOTE | 2018-10-01 21:02 | UC ---
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 + wheezing chest tightness w/ cough + asthma hx. doesnt know where [facility] MDI or neb is. she says she usually gets a neb treatment when she gets sick lie this and requests one here today. - History of Current Complaint Chief Complaint: UCRespiratory Stated Complaint: COUGH/CONGESTION Time Seen by Provider: 10/01/18 21:00 Hx Last Menstrual Period: "years ago." Pain Intensity: 4 - Allergies/Home Medications Allergies/Adverse Reactions: Allergies Allergy/AdvReac Type Severity Reaction Status Date / Time celecoxib [From Celebrex] Allergy Swelling Verified 10/01/18 20:11 fluoxetine [From Prozac] Allergy irritable Verified 10/01/18 20:11 levofloxacin [From Levaquin] Allergy Rash Verified 10/01/18 20:11 nickel Allergy Itching Verified 10/01/18 20:11 Home Medications: Home Medications guaiFENesin LIQ* [Robitussin*] 5 mg PO ONCE PRN 10/01/18 [History Confirmed 11/14] PMH/Surg Hx/FS Hx/Imm Hx Previously Healthy: Yes Endocrine History: Diabetes Respiratory History: Asthma Psychological History: Depression Other History Of: Negative For: HIV, Hepatitis B, Hepatitis C, Anticoagulant Therapy - Surgical History Surgical History: Yes Surgery Procedure, Year, and Place: uterine ablation, t&a , hips, ankle, cataracts - Family History Known Family History: Positive: Cardiac Disease Negative: Hypertension - Social History Alcohol Use: None Substance Use Type: None Smoking Status (MU): Never Smoked Tobacco Review of Systems All Other Systems Reviewed And Are Negative: Yes Constitutional: Positive: Fatigue. Negative: Fever, Chills Skin: Positive: Negative Eyes: Positive: Negative ENT: Positive: Sinus Congestion Respiratory: Positive: Cough. Negative: Shortness Of Breath Cardiovascular: Positive: Negative Gastrointestinal: Positive: Negative Genitourinary: Positive: Negative Motor: Positive: Negative Neurovascular: Positive: Negative Musculoskeletal: Positive: Negative Neurological: Positive: Negative Psychological: Positive: Negative Is Patient Immunocompromised?: No Physical Exam Triage Information Reviewed: Yes Appearance: Ill-Appearing - mild cough/congestion. Vital Signs: Initial Vital Signs Temp 99.3 F 10/01/18 20:14 Pulse 72 10/01/18 20:14 Resp 18 10/01/18 20:14 BP 133/54 10/01/18 20:14 Pulse Ox 97 10/01/18 20:14 Vital Signs Reviewed: Yes Eye Exam: Normal ENT: Positive: Pharynx normal, TMs normal, Uvula midline. Negative: Sinus tenderness Neck exam: Normal Neck: Positive: Supple, Nontender, No Lymphadenopathy Respiratory: Positive: Chest non-tender, No respiratory distress, No accessory muscle use, Decreased breath sounds - mild b/l. no w/r/r. imprved after cough. some discomfort w/ deep breath. Negative: Crackles, Rhonchi, Stridor, Wheezing Cardiovascular Exam: Normal Cardiovascular: Positive: RRR Abdominal Exam: Normal Abdomen Description: Positive: Soft - obese Musculoskeletal Exam: Normal Neurological Exam: Normal Psychological Exam: Normal Skin Exam: Normal Skin: Negative: Rashes Re-Evaluation - Re-Evaluation First Eval Re-Evaluation Time: 21:30 - improved breath sounds and symptoms Change: Improved Respiratory Course/Dx - Course Course Of Treatment: alb neb treatment - Differential Dx/Diagnosis Differential Diagnosis/HQI/PQRI: Asthma, Bronchitis Provider Diagnosis: Bronchitis Discharge - Sign-Out/Discharge Documenting (check all that apply): Patient Departure All imaging exams completed and their final reports reviewed: No Studies - Discharge Plan Condition: Stable Disposition: HOME Prescriptions: Albuterol HFA INHALER* [Ventolin HFA Inhaler*] 2 puff INH Q4H PRN 15 Days #1 mdi PRN Reason: Cough Referrals: Katarina Gresham NP [Primary Care Provider] - - Billing Disposition and Condition Condition: STABLE Disposition: Home
[2018-10-01] MEDS ORDERED: Albuterol 2.5 MG/3 ML NEB.SOL* (0.083%) INH ONE (21:06)
== END 2018-10-01 21:39 | disposition home or self-care (01) ==
LOC: UCCORT 19:27
DX: J45.909 Unspecified asthma, uncomplicated (principal); R09.81 Nasal congestion; E11.9 Type 2 diabetes mellitus without complications; Z88.1 Allergy status to other antibiotic agents; Z88.8 Allergy status to other drugs, medicaments and biological substances; Z91.09 Other allergy status, other than to drugs and biological substances
CPT/HCPCS: 99212; G0463

== ENCOUNTER 2019-06-02 14:17 | Emergency (ER) | payer MEDICARE ==
--- OUTSIDE RECORDS SUMMARY | 2019-06-02 14:44 | XMS REPORT | Continuity of Care Document ---
:1945 External Reference #:[id number] Author Name Paulina Cooper DO Address [address] [place] [address] Care Team Providers Name Role Phone Jan Sumner PA - Medical Care Team Information Sfdc Consultant [phone] Problems Active Problems Provider Date Jaundice Paulina Cooper DO Onset: 05/16/2019 Malignant tumor of head of pancreas Paulina Cooper DO Onset: 05/16/2019 Epigastric pain Samy Clements MD Onset: 03/29/2019 Liver function tests abnormal Samy Clements MD Onset: 03/29/2019 Vitamin deficiency Paulina Cooper DO Onset: 01/03/2019 Anemia Paulina Cooper DO Onset: 12/14/2018 Chronic obstructive lung disease Paulina Cooper DO Onset: 12/14/2018 Pulmonary embolism Paulina Cooper DO Onset: 12/14/2018 Mixed hyperlipidemia Samy Clements MD Onset: 03/29/2019 Social History Type Date Description Comments Sex Unknown Tobacco Use Start: Unknown Never Smoked Cigarettes Smoking Status Reviewed: 05/02/19 Never Smoked Cigarettes Smokeless Tobacco Never Used Smokeless Tobacco ETOH Use Denies alcohol use Tobacco Use Start: Unknown Patient denies history of smoking Recreational Drug Use Denies Drug Use Exercise Type/Frequency Exercises rarely Allergies, Adverse Reactions, Alerts Active Allergies Reaction Severity Comments Date Levaquin 11/19/2018 Nickel 11/19/2018 Prozac 11/19/2018 Celebrex 11/19/2018 Medications Active Medications SIG Qnty Indications Ordering Date Provider Benadryl Itch Stopping apply three times 30mg Boufal, 05/16/2019 2% a day to affected DO Paulina Gel area Benadryl Allergy 1 cap by mouth 45caps Boufal, 05/16/2019 25mg three times a day Paulina, DO Capsules as needed Folic Acid 1 tabl by mouth 30tabs Boufal, 01/03/2019 1mg Tablets every day Paulina, DO Metformin HCL take two tablets Unknown 500mg by mouth twice a Tablets day Simvastatin 1 by mouth every Unknown 20mg Tablets day Omeprazole 1 by mouth bid Unknown 40mg Capsules DR Cool 1 tab by mouth 60tabs Boufal, 5mg Tablets twice a day Paulina, DO [place] Calcium every other day ( Unknown alternates with 500mg Tablets Vit D ) Vitamin D 1 by mouth every Unknown 1000Unit other day ( Tablets alternates with calcium ) Bupropion Take One Tablet By Unknown Hydrochloride ER (XL) Mouth Every Day 300mg Tablets ER 24HR Creon take 1 3x daily Jan Valladares 59002Flgm Caps DR devries [address] units MD Yariel Part are all gone Creon 1 cap 3x daily Thuan [id number] MD Jarvis Caps DR Escalera Ondansetron HCL Take One Tablet By Unknown 4mg Mouth Every 4 Tablets Hours as Needed Cholestyramine Mix 1 Packet In Unknown 4gm Packet Liquid And Drink Two Times A Day Immunizations Description No Information Available Vital Signs Date Vital Result Comment 05/16/2019 3:23pm BP Systolic 137 mmHg BP Diastolic 80 mmHg Body Temperature 98.2 F Heart Rate 86 /min Respiratory Rate 18 /min Weight 196.00 lb O2 % BldC Oximetry 96 % Pain Level 4 just below center of rib cage 05/02/2019 2:31pm BP Systolic 134 mmHg BP Diastolic 86 mmHg Body Temperature 97.7 F Heart Rate 81 /min Respiratory Rate 22 /min Weight 202.12 lb O2 % BldC Oximetry 98 % Pain Level 0 Results Test Acquired Date Facility Test Result H/L Range Note Aot Request 05/19/2019 [facility] Aot Request Test(s) added 1, 2 [address] [place] [address] [phone] Tests to be added: crp magnesium CBC W/Automated 05/16/2019 [facility] White Blood 7.4 K/uL Normal 3.1-10.7 [address] [place] [place] [address] [phone] Red Blood Count 3.84 M/uL Low 3.90-5.40 Hemoglobin 11.6 gm/dL Normal 11.6-15.8 Hematocrit 37.1 % Normal 36.0-46.1 Mean Cell Volume 96.6 fl Normal 80.9-99.0 Mean Corpuscular HGB 30.2 pg Normal 25.9-32.7 Mean Corpuscular HGB Conc 31.3 g/dL Normal 30.8-34.3 Platelet Count 361 K/uL High 155-360 Red Cell Distri Width SD 53.4 fl High 36-47 Red Cell Distri Width %CV 15.1 % High 11.7-14.4 Mean Platelet Volume 11.8 fl Normal 8.9-12.4 Neut% 54.0 % Normal 40.4-72.8 Lymph % 32.7 % Normal 20.0-42.0 [place] % 6.3 % Normal 4.3-13.2 Eo% 6.1 % Normal 0.0-6.6 Bas% 0.5 % Normal 0.0-1.1 Immature Grans 0.4 % Normal 0.0-5.0 NRBC % 0.0 /100WBC < 10/ 100 WBC Neut# 3.97 K/uL Normal 1.8-7.0 Lymph # 2.41 K/uL Normal 1.0-4.0 [place] # 0.46 K/uL Normal 0.3-0.9 Eos # 0.45 K/uL Normal 0.0-0.5 Baso # 0.04 K/uL Normal 0.0-0.1 Immature Grans Absolute 0.03 K/uL NRBC # 0.00 K/uL Protime 05/16/2019 [facility] Protime 13.2 seconds Normal 12.0-14.[address] [place] [address] [phone] Inr 1.0 Normal 0.9-1.1 4 Reticulocyte 05/16/2019 [facility] Retic 33.6 pg Normal 27.9-37.0 Count,Automated [address] [place] [place] [address] [phone] Retic % 1.8 % Normal 0.5-1.8 Absolute Retic 70 K/uL Normal 24-84 Immature Retic Fraction 12.3 % Normal 2.9-15.5 Laboratory test 05/16/2019 [facility] Sedimentation Rate 101 mm/hr High 0-30 5 finding [address] [place], [place] [address] [phone] Magnesium 1.9 mg/dL Normal 1.6-2.6 Bilirubin,Direct 3.1 mg/dL High 0.0-0.2 LDH 241 U/L Normal 84-246 Uric Acid 4.6 mg/dL Normal 2.6-6.0 Glycohemoglobin 05/16/2019 [facility] Glycohemoglobin 7.2 % High 4.2-6.3 6 A1c [address] [facility] (A1c) [place] [address] [phone] eAG 160 mg/dL Laboratory test 05/16/2019 [facility] Vitamin 32.1 30.0-100.0 7 finding [address] [facility] D,25-Hydroxy ng/[place] [address] [phone] Carbohydrate Antigen 19-9 608.0 U/mL High 0-35 8 Vitamin B12 And 05/16/2019 [facility] Vitamin B12 1036 pg/mL High 193-986 Folate [address] [place] [address] [phone] Folic Acid > 20.0 ng/mL High 3.1-17.5 Laboratory test 05/16/2019 [facility] Ferritin 793 ng/mL High 8-252 finding [address] [place] [address] [phone] Iron-Tibc-%Sat 05/16/2019 [facility] Serum Iron 79 g/dL Normal 50-170 [address] [place] [address] [phone] Total Iron Binding Capacity 293 g/dL Normal 250-450 Transferrin %Saturation 27 % Normal 12-57 Comprehensive Metabolic 05/16/2019 [facility] Glucose 180 mg/dL High 74-106 Panel [address] [place] [address] [phone] BUN 14 mg/dL Normal 7-18 Creatinine 0.8 mg/dL Normal 0.6-1.3 Glom Filtration Rate, Estimate >60 mL/min >60 If >60 mL/min >60 9 BUN/Creat 17.5 ratio Sodium 137 mmol/L Normal 136-145 Potassium 4.2 mmol/L Normal 3.5-5.1 Chloride 107 mmol/L Normal 98-107 Carbon Dioxide 24 mmol/L Normal 21-32 Anion Gap 6 mEq/L Low 8-16 Calcium 9.1 mg/dL Normal 8.5-10.1 Total Protein 7.9 g/dL Normal 6.4-8.2 Albumin 3.1 g/dL Low 3.4-5.0 Globulin 4.8 g/dL High 1.9-4.3 Alb/Glob 0.6 ratio Bilirubin,Total 3.8 mg/dL High 0.2-1.0 Sgot/Ast 309 U/L High 15-37 SGPT/Alt 505 U/L High 12-78 Alkaline Phosphatase 1350 U/L Critical high 45-117 10 Urine Culture 05/02/2019 [facility] Urine Culture URETHRAL DORIS [address] [place] [address] [phone] Quantity > 100,000 CFU/mL 12 Urine Dipstick 05/02/2019 [facility] Inhouse Ua Color Dark Yellow Ua Clarity Clear Clear Ua Leuko 125 High Negative Ua Nitrite Negative Negative Ua Urobilinogen 4 High 0.2 - 1.0 E.U./dL Ua Protein 100 High Negative Ua PH 5.0 Low 6.5-7.5 Ua Blood Negative Negative Ua Specific [place] 1.030 1.010-1.030 Ua Ketones 5 High Negative Ua Bilirubin 2 High Negative Ua Glucose 500 High Negative Laboratory test 05/02/2019 [facility] Inhouse Rapid Group A Neg Pos, Neg, finding Strep Invalid Laboratory test 03/29/2019 [facility] Anti-Nuclear Negative Negative [address] Antibodies AU/[place] [address] Direct [phone] Actin (Smooth Muscle) Antibody 9 units 0-19 14 Mitochondrial (M2) Antibodies <20.0 units 0.0-20.0 15 Hzmev-5-Fyhceqpiaxl,Serum 154 mg/dL 90-200 16 Ceruloplasmin 29.9 mg/dL 19.0-39.0 Celiac Disease 03/29/2019 [facility] Immunoglobulin A 117 mg/dL 64-422 Comp AB Profile [address] [place] [address] [phone] Antigliadin Abs, IgG 1 units 0-19 17 Antigliadin Abs, IgA 2 units 0-19 18 Endomysial IgA Antibody Negative Negative t-Transglutaminase IgA <2 U/mL 0-3 19 t-Transglutaminase IgG <2 U/mL 0-5 20 Laboratory test 03/29/2019 [facility] Ferritin 587 ng/mL High 8-252 finding [address] [place] [place] [address] [phone] Hepatitis 03/29/2019 [facility] Hepatitis A Negative Negative 21 Evaluation [address] [facility] [place] [address] [phone] HBsAg Screen [Ref Lab] Negative Negative Hepatitis B Core IgM Negative Negative HCV Signal/Cutoff ratio 0.2 s/corat 0.0-0.9 22 Laboratory test 03/29/2019 [facility] Fibrinogen 693 mg/dL High 200-467 finding [address] [place] [address] [phone] Gamma Glutamyl Transpeptidase 1510 U/L Critical high 5-85 23 Amylase 99 U/L Normal 25-115 24 Lipase 2009 U/L Critical high 56-289 25 Laboratory test 03/28/2019 [facility] Ferritin 353 ng/mL High 8-252 26 finding [address] [facility] [place], [place] [address] [phone] CBC W/Automated 03/28/2019 [facility] White Blood 7.5 K/uL Normal 3.1-10.7 Diff [address] [place] [address] Count [place], [place] [address] [phone] Red Blood Count 3.95 M/uL Normal 3.90-5.40 Hemoglobin 12.1 gm/dL Normal 11.6-15.8 Hematocrit 38.5 % Normal 36.0-46.1 Mean Cell Volume 97.5 fl Normal 80.9-99.0 Mean Corpuscular HGB 30.6 pg Normal 25.9-32.7 Mean Corpuscular HGB Conc 31.4 g/dL Normal 30.8-34.3 Platelet Count 271 K/uL Normal 155-360 Red Cell Distri Width SD 53.2 fl High 36-47 Red Cell Distri Width %CV 14.8 % High 11.7-14.4 Mean Platelet Volume 11.1 fl Normal 8.9-12.4 Neut% 45.7 % Normal 40.4-72.8 Lymph % 39.3 % Normal 20.0-42.0 [place] % 6.8 % Normal 4.3-13.2 Eo% 7.2 % High 0.0-6.6 Bas% 0.5 % Normal 0.0-1.1 Immature Grans 0.5 % Normal 0.0-5.0 NRBC % 0.0 /100WBC < 10/ 100 WBC Neut# 3.43 K/uL Normal 1.8-7.0 Lymph # 2.95 K/uL Normal 1.0-4.0 [place] # 0.51 K/uL Normal 0.3-0.9 Eos # 0.54 K/uL High 0.0-0.5 Baso # 0.04 K/uL Normal 0.0-0.1 Immature Grans Absolute 0.04 K/uL NRBC # 0.00 K/uL Comprehensive Metabolic 03/28/2019 [facility] Glucose 190 mg/dL High 74-106 Panel [address] [place], [place] [address] [phone] BUN 16 mg/dL Normal 7-18 Creatinine 0.9 mg/dL Normal 0.6-1.3 Glom Filtration Rate, Estimate >60 mL/min >60 If >60 mL/min >60 27 BUN/Creat 17.7 ratio Sodium 138 mmol/L Normal 136-145 Potassium 4.5 mmol/L Normal 3.5-5.1 Chloride 105 mmol/L Normal 98-107 Carbon Dioxide 27 mmol/L Normal 21-32 Anion Gap 6 mEq/L Low 8-16 Calcium 9.2 mg/dL Normal 8.5-10.1 Total Protein 7.8 g/dL Normal 6.4-8.2 Albumin 3.7 g/dL Normal 3.4-5.0 Globulin 4.1 g/dL Normal 1.9-4.3 Alb/Glob 0.9 ratio Bilirubin,Total 0.9 mg/dL Normal 0.2-1.0 Sgot/Ast 290 U/L High 15-37 SGPT/Alt 767 U/L High 12-78 Alkaline Phosphatase 709 U/L High 45-117 Iron-Tibc-%Sat 03/28/2019 [facility] Serum Iron 126 g/dL Normal 50-170 [address] [place] [address] [phone] Total Iron Binding Capacity 322 g/dL Normal 250-450 Transferrin %Saturation 39 % Normal 12-57 Iron-Tibc-%Sat 01/10/2019 [facility] Serum Iron 74 g/dL Normal 50-[address] [place], [place] [address] [phone] Total Iron Binding Capacity 298 g/dL Normal 250-450 Transferrin %Saturation 25 % Normal 12-57 Laboratory test 01/10/2019 [facility] Ferritin 102 ng/mL Normal 8-252 finding [address] [place] [address] [phone] Vitamin B12 And 01/10/2019 [facility] Vitamin B12 358 pg/mL Normal 193-986 Folate [address] [place] [address] [phone] Folic Acid 14.5 ng/mL Normal 3.1-17.5 Laboratory test 01/10/2019 [facility] Vitamin 42.9 30.0-100.0 [address] D,25-Hydroxy ng/[place] [address] [phone] Sedimentation Rate 15 mm/hr Normal 2-55 30 CBC W/Automated 01/10/2019 [facility] White Blood 7.5 K/uL Normal 3.1-10.[address] [place] [address] [phone] Red Blood Count 3.78 M/uL Low 3.90-5.40 Hemoglobin 11.5 gm/dL Low 11.6-15.8 Hematocrit 36.8 % Normal 36.0-46.1 Mean Cell Volume 97.4 fl Normal 80.9-99.0 Mean Corpuscular HGB 30.4 pg Normal 25.9-32.7 Mean Corpuscular HGB Conc 31.3 g/dL Normal 30.8-34.3 Platelet Count 256 K/uL Normal 155-360 Red Cell Distri Width SD 49.1 fl High 36-47 Red Cell Distri Width %CV 13.7 % Normal 11.7-14.4 Mean Platelet Volume 10.6 fl Normal 8.9-12.4 Neut% 48.8 % Normal 40.4-72.8 Lymph % 38.7 % Normal 20.0-42.0 [place] % 5.9 % Normal 4.3-13.2 Eo% 5.5 % Normal 0.0-6.6 Bas% 0.7 % Normal 0.0-1.1 Immature Grans 0.4 % Normal 0.0-5.0 NRBC % 0.0 /100WBC < 10/ 100 WBC Neut# 3.65 K/uL Normal 1.8-7.0 Lymph # 2.89 K/uL Normal 1.0-4.0 [place] # 0.44 K/uL Normal 0.3-0.9 Eos # 0.41 K/uL Normal 0.0-0.5 Baso # 0.05 K/uL Normal 0.0-0.1 Immature Grans Absolute 0.03 K/uL NRBC # 0.00 K/uL Comprehensive Metabolic 01/10/2019 [facility] Glucose 129 mg/dL High 74-106 Panel [address] [place] [address] [phone] BUN 21 mg/dL High 7-18 Creatinine 0.9 mg/dL Normal 0.6-1.3 Glom Filtration Rate, Estimate >60 mL/min >60 If >60 mL/min >60 31 BUN/Creat 23.3 ratio Sodium 139 mmol/L Normal 136-145 Potassium 4.7 mmol/L Normal 3.5-5.1 Chloride 106 mmol/L Normal 98-107 Carbon Dioxide 28 mmol/L Normal 21-32 Anion Gap 5 mEq/L Low 8-16 Calcium 9.2 mg/dL Normal 8.5-10.1 Total Protein 7.3 g/dL Normal 6.4-8.2 Albumin 3.4 g/dL Normal 3.4-5.0 Globulin 3.9 g/dL Normal 1.9-4.3 Alb/Glob 0.9 ratio Bilirubin,Total 0.3 mg/dL Normal 0.2-1.0 Sgot/Ast 11 U/L Low 15-37 32 SGPT/Alt 21 U/L Normal 12-78 Alkaline Phosphatase 74 U/L Normal 45-117 Laboratory 12/14/2018 [facility] Vitamin 42.2 30.0-100.0 33, 34 test finding [address] D,25-Hydroxy ng/[place] [address] [phone] Sedimentation Rate 2 mm/hr Normal 2-55 35 DRVVT Mix 50.0 sec High 0.0-47.0 36 DRVVT Confirm 1.1 ratio 0.8-1.2 Vitamin B12 And 12/14/2018 [facility] Vitamin B12 517 pg/mL Normal 193-[address] [place] [address] [phone] Folic Acid 9.9 ng/mL Normal 3.1-17.5 Laboratory test 12/14/2018 [facility] Ferritin 114 ng/mL Normal 8-252 finding [address] [place] [address] [phone] Iron-Tibc-%Sat 12/14/2018 [facility] Serum Iron 79 g/dL Normal 50-170 [address] [place] [address] [phone] Total Iron Binding Capacity 291 g/dL Normal 250-450 Transferrin %Saturation 27 % Normal 12-57 Anticardiolipin AB 12/14/2018 [facility] Anticardiolipin < 9 0-14 37 Iga/Igg/Igm [address] Igg GPLU/[place] [address] [phone] Anticardiolipin Igm, Quant 11 MPLU/mL 0-12 38 Anticardiolipin Iga < 9 APLU/mL 0-11 39 Lupus Anticoagulant Reflex 12/14/2018 [facility] PTT-LA 42.4 sec 0.0-51.9 [address] [place] [address] [phone] DRVVT 60.8 sec High 0.0-47.0 Note: Comment: . 40 Methylenetetrahydrofolate 12/14/2018 [facility] MTHFR,Dna (SEE [address] Analysis NOTE) [place], [place] [address] [phone] 1 ACUTE PANCREATITIS S/P ERCP 2 Tests: crp magnesium Instructions: 3 C25.9 E61.1 E53.9 D68.9 4 THERAPEUTIC INR RANGE: 2.0 - 3.0 DVT, Pulmonary embolus, prophylaxis against venous thrombosis or systemic embolization in high risk patients. 2.5 - 3.5 Mechanical heart valves 5 Method: Sediplast Modified Westergren 6 Elevated levels of HbA1c suggest the need for more aggressive treatment of glycemia. The [place] [employer] recommends that a primary goal of therapy should be a HbA1c of <7% and that physicians should re-evaluate the treatment regimen in patients with HbA1c values consistently >8%. 7 Vitamin D deficiency has been defined by the [employer] of [employer] and an Endocrine Society practice guideline as a level of serum 25-OH vitamin D less than 20 ng/mL (1,2). The Endocrine Society went on to further define vitamin D insufficiency as a level between 21 and 29 ng/mL (2). 1. IOM ([employer] of Medicine). 2010. Dietary reference intakes for calcium and D. [place]: The National [employer] Press. 2. Timothy MF, Augie NOGUERA, Apolinar LANDA, et al. Evaluation, treatment, and prevention of vitamin D deficiency: an Endocrine Society clinical practice guideline. JCEM. 2010; 96(7):1911-30. Performed at: [facility] [employer] [address] [id number] Solar Panel Installer: Kristy Enriquez MD, Phone: [phone] [employer] Electrochemiluminescence Immunoassay (ECLIA) Values obtained with different assay methods or kits cannot be used interchangeably. Results cannot be interpreted as absolute evidence of the presence or absence of malignant disease. Performed at: [facility] [employer] [id number] Solar Panel Installer: Kristy Enriquez MD, Phone: [phone] Note: Persistent reduction for 3 months or more in an eGFR <60 mL/min/1.73 m2 defines CKD. Patients with eGFR values >/=60 mL/min/1.73 m2 may also have CKD if evidence of persistent proteinuria is present. The original MDRD equation for estimated GFR is not valid for patients less than 18 years of age. Additional information may be found at www.kdoqi.org. 10 Result confirmed by repeat analysis. 11 R10.30 12 > 100,000 CFU/mL 13 NO DX R10.10 I26.99 R10.9, R94.5 14 Negative 0 - 19 Weak positive 20 - 30 Moderate to strong positive >30 Actin Antibodies are found in 52-85% of patients with autoimmune hepatitis or chronic active hepatitis and in 22% of patients with primary biliary cirrhosis. 15 Negative 0.0 - 20.0 Equivocal 20.1 - 24.9 Positive >24.9 Mitochondrial (M2) Antibodies are found in 90-96% of patients with primary biliary cirrhosis. 16 Effective April 25, 2019 [id number], Serum reference interval will be changing to: Age Male Female 0 - 7 days 102 - 186 102 - 186 8 days - 30 days 73 - 187 73 - 187 31 days - 5 years 86 - 173 86 - 173 6 years - 12 years 99 - 156 99 - 156 13 years - 40 years 95 - 164 100 - 188 >40 years 101 - 187 101 - 187 Performed at: - [facility] [address] [id number] Solar Panel Installer: Kristy Enriquez MD, Phone: [phone] 17 Negative 0 - 19 Weak Positive 20 - 30 Moderate to Strong Positive >30 18 Negative 0 - 19 Weak Positive 20 - 30 Moderate to Strong Positive >30 19 Negative 0 - 3 Weak Positive 4 - 10 Positive >10 Tissue Transglutaminase (tTG) has been identified as the endomysial antigen. Studies have demonstr- ated that endomysial IgA antibodies have over 99% specificity for gluten sensitive enteropathy. 20 Negative 0 - 5 Weak Positive 6 - 9 Positive >9 21 NO DX R10.10 I26.99 R10.9 NO DX R10.10 I26.99 R10.9, R94.5 NO DX R10.10 I26.99 R10.9, R94.5 22 INFCE Result Units: s/co ratio Negative: < 0.8 Indeterminate: 0.8 - 0.9 Positive: > 0.9 The CDC recommends that a positive HCV antibody result be followed up with a HCV Nucleic Acid Amplification test (725642). Performed at: - [facility] [address] [id number] Solar Panel Installer: Kristy Enriquez MD, Phone: [phone] 23 CALLED LIPASE, [place] [address]/29/19 by LAB.LM 24 CALLED LIPASE[place] [address]/29/19 by LAB.LM 25 CALLED LIPASE[place] [address]/29/19 by LAB.LM 26 I26.99,D64.9,E56.9 27 Note: Persistent reduction for 3 months or more in an eGFR <60 mL/min/1.73 m2 defines CKD. Patients with eGFR values >/=60 mL/min/1.73 m2 may also have CKD if evidence of persistent proteinuria is present. The original MDRD equation for estimated GFR is not valid for patients less than 18 years of age. Additional information may be found at www.kdoqi.org. 28 I26.99 J44.9 D64.9 29 Vitamin D deficiency has been defined by the [employer] of Medicine and an Endocrine Society practice guideline as a level of serum 25-OH vitamin D less than 20 ng/mL (1,2). The Endocrine Society went on to further define vitamin D insufficiency as a level between 21 and 29 ng/mL (2). 1. IOM ([place] of Medicine). 2010. Dietary reference intakes for calcium and D. [place]: The National Academies Press. 2. Timothy MF, Augie NOGUERA, Apolinar LANDA, et al. Evaluation, treatment, and prevention of vitamin D deficiency: an Endocrine Society clinical practice guideline. JCEM. 2010; 96(7):1911-30. Performed at: - [facility] [address] [id number] Solar Panel Installer: Kristy Enriquez MD, Phone: [phone] 30 This result was obtained with an ESR method that is not based on the standard Westergren Method. When comparing results obtained from the traditional Westergren ESR and this method it is important to refer to the reference range for each method. Method: Capillary Photometry 31 Note: Persistent reduction for 3 months or more in an eGFR <60 mL/min/1.73 m2 defines CKD. Patients with eGFR values >/=60 mL/min/1.73 m2 may also have CKD if evidence of persistent proteinuria is present. The original MDRD equation for estimated GFR is not valid for patients less than 18 years of age. Additional information may be found at www.kdoqi.org. 32 Values below the stated reference ranges of AST and ALT can be seen in normal populations. Clinical correlation is suggested. 33 I26.99 J44.9 SEE NOTE 34 Vitamin D deficiency has been defined by the [employer] of Medicine and an Endocrine Society practice guideline as a level of serum 25-OH vitamin D less than 20 ng/mL (1,2). The Endocrine Society went on to further define vitamin D insufficiency as a level between 21 and 29 ng/mL (2). 1. IOM ([place] of Medicine). 2010. Dietary reference intakes for calcium and D. [place]: The National Academies Press. 2. Timothy MF, Augie [place], Apolinar LANDA, et al. Evaluation, treatment, and prevention of vitamin D deficiency: an Endocrine Society clinical practice guideline. JCEM. 2010; 96(7):1911-30. Performed at: [address] [id number] Solar Panel Installer: Kristy Enriquez MD, Phone: [phone] 35 This result was obtained with an ESR method that is not based on the standard Westergren Method. When comparing results obtained from the traditional Westergren ESR and this method it is important to refer to the reference range for each method. Method: Capillary Photometry 36 Performed at: [facility] [employer] [id number] Solar Panel Installer: Xu Emery MD, Phone: [phone] 37 Negative: <15 Indeterminate: 15 - 20 Low-Med Positive: >20 - 80 High Positive: >80 38 Negative: <13 Indeterminate: 13 - 20 Low-Med Positive: >20 - 80 High Positive: >80 39 Negative: <12 Indeterminate: 12 - 20 Low-Med Positive: >20 - 80 High Positive: >80 Performed at: [address] [id number] Solar Panel Installer: Kristy Enriquez MD, Phone: [phone] 12/18/18 1012: Note: previously reported as: Performed at: [address] [id number] Solar Panel Installer: Xu Emery MD, Phone: [phone] Amended result called to: [] - 12/18/18 at 1012 No lupus anticoagulant was detected. These results are consistent with specific inhibitors to one or more common pathway factors (X, V, II or fibrinogen). Performed at: [facility] [employer] [id number] Solar Panel Installer: Xu Emery MD, Phone: [phone] Result: [id number] Two copies of the same mutation ([id number]) identified Interpretation: This individual is homozygous for the MTHFR [id number] variant (two copies). The MTHFR C677T variant was not identified. This MTHFR result is not associated with an increased risk of hyperhomocysteinemia, venous thrombosis, coronary artery disease, or recurrent loss. However, hyperhomocysteinemia may also occur due to mutations in enzymes other than MTHFR that are involved in homocysteine metabolism, or arise due to acquired factors. In the evaluation of vascular and obstetric risk, consider measuring fasting homocysteine. Other risk factors may be detected through systematic clinical laboratory analysis. Methylenetetrahydrofolate reductase (MTHFR) is a gardiner enzyme in the folate pathway and is responsible for the metabolism of homocysteine. There are two common variants in the MTHFR gene, c.655c>T (p.Bjp373Fomj), referred to as C677T, and c.1286A>C (p.Ifl710Gsy), referred to as T6891G. Individuals homozygous for C677T (two copies of the variant), have decreased activity of the MTHFR enzyme and a predisposition to hyperhomocysteinemia, particularly when deficient in folate. Hyperhomocysteinemia is a risk factor for venous thrombosis and coronary artery disease and is associated with an increased risk of open neural tube defects. The C677T variant does not independently increase risk of these conditions in the absence of hyperhomocysteinemia. The [id number] variant is not associated with elevated homocysteine levels unless a C677T variant is also present; however, the clinical significance of heterozygosity for both C677T and O3418C is controversial. Population data suggest that these two variants are not present on the same chromosome, but rare exceptions have been reported of triple variant MTHFR genotypes (ie. homozygous for one variant and heterozygous for the other). Homozygosity for C677T has an estimated frequency of 10% to 15% in Caucasians and 25% in Hispanics. Additional information: Dietary folic acid, B6 and B12 supplementation has been suggested to lower homocysteine levels in some people. Folic acid supplementation has been shown to reduce the occurrence of neural tube defects. Genetic counselors are available for health care providers to discuss results at [phone] [place]. Methodology: DNA analysis of the MTHFR gene was performed by PCR amplification followed by restriction analysis. The diagnostic sensitivity is >99% for both. Molecular-based testing is highly accurate, but as in any laboratory test, rare diagnostic errors may occur. All test results must be combined with clinical information for the most accurate interpretation. This test was developed and its performance characteristics determined by [facility]. It has not been cleared or approved by the Food and Drug Administration. References: Verao LD, Alejandro Q. Am J Epidemiol 2000; 151(9):862-877. Elena MM, Pablito JA. Arch Pathol Lab Med 2007; 131(6):872-884. Frosst P et al. Yomaira María Elena 1995; 10(1):111-113. Hickey SE et al. María Elena Med 2013; 15(2):153-156. Bandera C et al. Obstet Gynecol 2011; 118(3):730-740. Luis Antonio B et al. Eur J Epidemiol 2013; 28(8):621-647. August Emerson, PhD, FACMG Erika Arreguin, PhD, FACMG Yanet TiradoS., PhD, FACMG Luzma Maria, PhD, FACMG Jihan Goddard, PhD, FACMG Sam Atkins, PhD, FAC Performed at: [facility] [address] [id number] [employer] Panel Installer: Aime Foster MD, Phone: [phone] Procedures Date Code Description Status 12/06/2018 49667 Bronchospasm Provocation Evaluation Multi Spirometric Completed Determinati 12/06/2018 97027 Spirometry Completed Medical Devices Description No Information Available Encounters Type Date Location Provider Dx Diagnosis Office Visit 05/02/2019 [facility] Corinne, J02.9 Acute pharyngitis, 2:15p IRVIN Moore unspecified R10.30 Lower abdominal pain, unspecified Office Visit 03/29/2019 2:00p Samy Baldwin MD R94.5 Abnormal results of liver function studies R10.13 Epigastric pain Office Visit 03/29/2019 10:00a Oncology Office Kenneth, I26.99 Other pulmonary Paulina, DO embolism without acute cor pulmonale R10.13 Epigastric pain R94.5 Abnormal results of liver function studies Office Visit 01/03/2019 12:30p Oncology Office Boufal, I26.99 Other pulmonary Paulina, DO embolism without acute cor pulmonale E56.9 Vitamin deficiency, unspecified Office Visit 12/29/2018 9:20a Pulmonology Mavis Salmeron, J44.9 Chronic obstructive PA pulmonary disease, unspecified I26.99 Other pulmonary embolism without acute cor pulmonale Office Visit 12/14/2018 1:00p Oncology Office Boufal, I26.99 Other pulmonary Paulina, DO embolism without acute cor pulmonale I26.99 Other pulmonary embolism without acute cor pulmonale J44.9 Chronic obstructive pulmonary disease, unspecified J44.9 Chronic obstructive pulmonary disease, unspecified D64.9 Anemia, unspecified D64.9 Anemia, unspecified Assessments Date Code Description Provider 05/16/2019 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 or infection, unspecified 04/02/2019 K21.9 Gastro-esophageal reflux disease Art Nascimento M.D. without esophagitis 04/02/2019 R74.0 Nonspecific elevation of levels of Art Nascimento M.D. transaminase and lactic acid dehydrogenase [LDH] 04/02/2019 R17 Unspecified jaundice Art Nascimento M.D. 04/01/2019 R10.13 Epigastric pain Art Nascimento M.D. 03/31/2019 E11.9 Type 2 diabetes mellitus without Art Nascimento M.D. complications 03/31/2019 R10.13 Epigastric pain Art Nascimento M.D. 03/31/2019 K21.9 Gastro-esophageal reflux disease Art Nascimento M.D. without esophagitis 03/30/2019 I26.99 Other pulmonary embolism without BoufalHillaryPaulina, DO acute cor pulmonale 03/30/2019 Z79.01 detention (current) use of BoufalHillaryPaulina, DO anticoagulants 03/30/2019 E11.9 Type 2 diabetes mellitus without Art Nascimento M.D. complications 03/30/2019 R10.13 Epigastric pain Art Nascimento M.D. 03/30/2019 K21.9 Gastro-esophageal reflux disease Art Nascimento M.D. without esophagitis 03/29/2019 K85.90 Acute pancreatitis without necrosis Art Nascimento M.D. or infection, unspecified 03/29/2019 I26.99 Other pulmonary embolism without Boufal, Paulina, DO acute cor pulmonale 03/29/2019 R94.5 Abnormal results of liver function Samy Clements MD studies 03/29/2019 E11.9 Type 2 diabetes mellitus without Art Nascimento M.D. complications 03/29/2019 R10.13 Epigastric pain Paulina Cooper, DO 03/29/2019 R10.13 Epigastric pain Samy Clements MD 03/29/2019 Z79.01 detention (current) use of Art Nascimento M.D. anticoagulants 03/29/2019 R94.5 Abnormal results of liver function Paulina Cooper DO studies 03/28/2019 I26.99 Other pulmonary embolism without Boufal, Paulina, DO acute cor pulmonale 03/28/2019 I26.99 Other pulmonary embolism without Oncology Nurse acute cor pulmonale 03/28/2019 D64.9 Anemia, unspecified Boufal, Paulina, DO 03/28/2019 D64.9 Anemia, unspecified Oncology Nurse 03/28/2019 E56.9 Vitamin deficiency, unspecified Boufal, Paulina, DO 03/28/2019 E56.9 Vitamin deficiency, unspecified Oncology Nurse 01/10/2019 I26.99 Other pulmonary embolism without Boufal, Paulina, DO acute cor pulmonale 01/10/2019 I26.99 Other pulmonary embolism without Oncology Nurse acute cor pulmonale 01/10/2019 J44.9 Chronic obstructive pulmonary Boufal, Paulina, DO disease, unspecified 01/10/2019 J44.9 Chronic obstructive pulmonary Oncology Nurse disease, unspecified 01/10/2019 D64.9 Anemia, unspecified Boufal, Paulina, DO 01/10/2019 D64.9 Anemia, unspecified Oncology Nurse 01/03/2019 I26.99 Other pulmonary embolism without Boufal, Paulina, DO acute cor pulmonale 01/03/2019 E56.9 Vitamin deficiency, unspecified Boufal, Paulina, DO 12/29/2018 J44.9 Chronic obstructive pulmonary Mavis Salmeron, PA disease, unspecified 12/29/2018 I26.99 Other pulmonary embolism without Jaron, Mavis, PA acute cor pulmonale 12/14/2018 I26.99 Other pulmonary embolism without Boufal, Paulina, DO acute cor pulmonale 12/14/2018 I26.99 Other pulmonary embolism without Boufal, Paulina, DO acute cor pulmonale 12/14/2018 J44.9 Chronic obstructive pulmonary Boufal, Paulina, DO disease, unspecified 12/14/2018 J44.9 Chronic obstructive pulmonary Boufal, Paulina, DO disease, unspecified 12/14/2018 D64.9 Anemia, unspecified Boufal, Paulina, DO 12/14/2018 D64.9 Anemia, unspecified Boufal, Paulina, DO 12/06/2018 J44.9 Chronic obstructive pulmonary Jaison Lewis MD disease, unspecified Plan of Treatment Future Appointment(s):05/27/2019 12:00 pm - Boufal, Paulina, DO at Oncology Pnmscs2907/06/2019 10:00 am - Mavis Salmeron PA at Pulmonology Functional Status Description No Information Available Mental Status Description No Information Available Referrals Refer to Dr Reason for Referral Status Appt Date Ever March MD port placement - adenocarcinoma of Scheduled pancreas [address] [id number] [phone]
--- OUTSIDE RECORDS SUMMARY | 2019-06-02 14:44 | XMS REPORT | Continuity of Care Document ---
:1945 External Reference #:[id number] Author Name Paulina Cooper DO (transmitted by agent of provider Kaitlyn Camargo) Address [address] [place] [id number] Care Team Providers Name Role Phone Jan Sumner PA - Medical Care Team Information Clinical Molecular Geneticist [phone] Problems Active Problems Provider Date Jaundice Paulina [...] Benadryl Itch Stopping apply three times 30mg Kenneth, 05/16/2019 2% a day to affected DO [...] Creon take 1 3x daily Jan Valladares [id number] Caps DR devries [address] units MD Jw Saldivar are all gone Creon 1 cap 3x daily Thuan [id number] MD Jarvis Caps DR Escalera Ondansetron HCL Take One Tablet By Unknown 4mg Mouth Every 4 Tablets Hours as Needed Cholestyramine Mix 1 Packet In Unknown 4gm Packet Liquid And Drink Two Times A Day Immunizations Description No Information Available Vital Signs Date Vital Result Comment 05/27/2019 11:44am BP Systolic 155 mmHg BP Diastolic 56 mmHg Body Temperature 98.2 F Heart Rate 96 /min Respiratory Rate 18 /min Weight 192.38 lb O2 % BldC Oximetry 98 % Ra Pain Level 2 mid abd 05/16/2019 3:23pm BP Systolic 137 mmHg BP Diastolic 80 mmHg Body Temperature 98.2 F Heart Rate 86 /min Respiratory Rate 18 /min Weight 196.00 lb O2 % BldC Oximetry 96 % Pain Level 4 just below center of rib cage Results Test Acquired Date Facility Test Result H/L Range Note CBC 05/27/2019 [facility] White Blood 8.9 K/uL Normal 3.1-10.7 1 W/Automated [address] Count Diff [place], [place] [id number] [phone] Red Blood Count 3.42 M/uL Low 3.90-5.40 Hemoglobin 10.2 gm/dL Low 11.6-15.8 Hematocrit 32.6 % Low 36.0-46.1 Mean Cell Volume 95.3 fl Normal 80.9-99.0 Mean Corpuscular HGB 29.8 pg Normal 25.9-32.7 Mean Corpuscular HGB Conc 31.3 g/dL Normal 30.8-34.3 Platelet Count 447 K/uL High 155-360 Red Cell Distri Width SD 50.3 fl High 36-47 Red Cell Distri Width %CV 14.5 % High 11.7-14.4 Mean Platelet Volume 11.0 fl Normal 8.9-12.4 Neut% 57.8 % Normal 40.4-72.8 Lymph % 27.2 % Normal 20.0-42.0 [place] % 8.0 % Normal 4.3-13.2 Eo% 5.7 % Normal 0.0-6.6 Bas% 0.3 % Normal 0.0-1.1 Immature Grans 1.0 % Normal 0.0-5.0 NRBC % 0.0 /100WBC < 10/ 100 WBC Neut# 5.15 K/uL Normal 1.8-7.0 Lymph # 2.43 K/uL Normal 1.0-4.0 [place] # 0.71 K/uL Normal 0.3-0.9 Eos # 0.51 K/uL High 0.0-0.5 Baso # 0.03 K/uL Normal 0.0-0.1 Immature Grans Absolute 0.09 K/uL NRBC # 0.00 K/uL Comprehensive Metabolic 05/27/2019 [facility] Glucose 311 mg/dL High 74-106 Panel [address] [place], [place] [id number] [phone] BUN 14 mg/dL Normal 7-18 Creatinine 0.9 mg/dL Normal 0.6-1.3 Glom Filtration Rate, Estimate >60 mL/min >60 If >60 mL/min >60 2 BUN/Creat 15.5 ratio Sodium 133 mmol/L Low 136-145 Potassium 4.2 mmol/L Normal 3.5-5.1 Chloride 100 mmol/L Normal 98-107 Carbon Dioxide 26 mmol/L Normal 21-32 Anion Gap 7 mEq/L Low 8-16 Calcium 9.4 mg/dL 8.5-10.1 Total Protein 8.1 g/dL 6.4-8.2 Albumin 2.5 g/dL Low 3.4-5.0 Globulin 5.6 g/dL High 1.9-4.3 Alb/Glob 0.4 ratio Bilirubin,Total 0.7 mg/dL Normal 0.2-1.0 Sgot/Ast 32 U/L Normal 15-37 SGPT/Alt 82 U/L High 12-78 Alkaline Phosphatase 817 U/L High 45-117 Laboratory 05/27/2019 [facility] Gamma Glutamyl 672 U/L High 5-85 test finding [address] [place] [address] [phone] Aot Request 05/19/2019 [facility] Aot Request Test(s) 3, [address] [place] [address] [phone] Tests to be added: crp magnesium Protime 05/16/2019 [facility] Protime 13.2 seconds Normal 12.0-14.[address] [place] [address] [phone] Inr 1.0 Normal 0.9-1.1 6 Reticulocyte 05/16/2019 [facility] Retic 33.6 pg Normal 27.9-37.0 Count,Automated [address] [place] [address] [phone] Retic % 1.8 % Normal 0.5-1.8 Absolute Retic 70 K/uL Normal 24-84 Immature Retic Fraction 12.3 % Normal 2.9-15.5 Laboratory test 05/16/2019 [facility] Sedimentation Rate 101 mm/hr High 0-30 [address] [place] [address] [phone] Magnesium 1.9 mg/dL Normal 1.6-2.6 Bilirubin,Direct 3.1 mg/dL High 0.0-0.2 LDH 241 U/L Normal 84-246 Uric Acid 4.6 mg/dL Normal 2.6-6.0 Glycohemoglobin 05/16/2019 [facility] Glycohemoglobin 7.2 % High 4.2-6.[address] (A1c) [place] [address] [phone] eAG 160 mg/dL Laboratory test 05/16/2019 [facility] Vitamin 32.1 30.0-100.0 9 finding [address] D,25-Hydroxy ng/[place] [address] [phone] Carbohydrate Antigen 19-9 608.0 U/mL High 0-35 10 Vitamin B12 And 05/16/2019 [facility] Vitamin B12 1036 pg/mL High 193-986 Folate [address] [place], [place] [address] [phone] Folic Acid > 20.0 ng/mL High 3.1-17.5 Laboratory test 05/16/2019 [facility] Ferritin 793 ng/mL High 8-252 finding [address] [place] [address] [phone] Iron-Tibc-%Sat 05/16/2019 [facility] Serum Iron 79 g/dL Normal 50-170 [address] [place] [address] [phone] Total Iron Binding Capacity 293 g/dL Normal 250-450 Transferrin %Saturation 27 % Normal 12-57 Comprehensive Metabolic 05/16/2019 [facility] Glucose 180 mg/dL High 74-106 Panel [address] [place], [place] [address] [phone] BUN 14 mg/dL Normal 7-18 Creatinine 0.8 mg/dL Normal 0.6-1.3 Glom Filtration Rate, Estimate >60 mL/min >60 If >60 mL/min >60 11 BUN/Creat 17.5 ratio Sodium 137 mmol/L Normal [...] Alkaline Phosphatase 1350 U/L Critical high 45-117 12 CBC W/Automated 05/16/2019 [facility] White Blood 7.4 K/uL Normal 3.1-10.[address] [place] [address] [phone] Red Blood Count 3.84 M/uL Low 3.90-5.40 [...] 40.4-72.8 Lymph % 32.7 % Normal 20.0-42.0 [place] % 6.3 % Normal 4.3-13.2 Eo% 6.1 % Normal 0.0-6.6 Bas% 0.5 % Normal 0.0-1.1 Immature Grans 0.4 % Normal 0.0-5.0 NRBC % 0.0 /100WBC < 10/ 100 WBC Neut# 3.97 K/uL Normal 1.8-7.0 Lymph # 2.41 K/uL Normal 1.0-4.0 [place] # 0.46 K/uL Normal 0.3-0.9 Eos # 0.45 K/uL Normal 0.0-0.5 Baso # 0.04 K/uL Normal 0.0-0.1 Immature Grans Absolute 0.03 K/uL NRBC # 0.00 K/uL Urine Culture 05/02/2019 [facility] Urine Culture URETHRAL DORIS [address] [place] [address] [phone] Quantity > 100,000 CFU/mL 14 Urine Dipstick 05/02/2019 [facility] Ua Color Dark Yellow Ua Clarity Clear Clear Ua Leuko 125 High Negative Ua Nitrite Negative Negative Ua Urobilinogen 4 High 0.2 - 1.0 E.U./dL Ua Protein 100 High Negative Ua PH 5.0 Low 6.5-7.5 Ua Blood Negative Negative Ua Specific [place] 1.030 1.010-1.030 Ua Ketones 5 High Negative Ua Bilirubin 2 High Negative Ua Glucose 500 High Negative Laboratory test 05/02/2019 [facility] Rapid Group A Neg Pos, Neg, finding Strep Invalid Laboratory test 03/29/2019 [facility] Anti-Nuclear Negative Negative [address] Antibodies AU/[place] [address] Direct [phone] Actin (Smooth Muscle) Antibody 9 units 0-19 16 Mitochondrial (M2) Antibodies <20.0 units 0.0-20.0 17 Ansiv-5-Nvjqfvfhczz,Serum 154 mg/dL 90-200 18 Ceruloplasmin 29.9 mg/dL 19.0-39.0 Celiac Disease 03/29/2019 [facility] Immunoglobulin A 117 mg/dL 64-422 Comp AB Profile [address] [place] [address] [phone] Antigliadin Abs, IgG 1 units 0-19 19 Antigliadin Abs, IgA 2 units 0-19 20 Endomysial IgA Antibody Negative Negative t-Transglutaminase IgA <2 U/mL 0-3 21 t-Transglutaminase IgG <2 U/mL 0-5 22 Laboratory test 03/29/2019 [facility] Ferritin 587 ng/mL High 8-252 finding [address] [place] [address] [phone] Hepatitis 03/29/2019 [facility] Hepatitis A Negative Negative [address] Antibody IgM [place], [place] [id number] [phone] HBsAg Screen [Ref Lab] Negative Negative Hepatitis B Core IgM Negative Negative HCV Signal/Cutoff ratio 0.2 s/corat 0.0-0.9 24 Laboratory test 03/29/2019 [facility] Fibrinogen 693 mg/dL High 200-467 finding [address] [place], [place] [address] [phone] Gamma Glutamyl Transpeptidase 1510 U/L Critical high 5-85 25 Amylase 99 U/L Normal 25-115 26 Lipase 2009 U/L Critical high 56-289 27 CBC W/Automated 03/28/2019 [facility] White 7.5 K/uL Normal 3.1-10.7 28 Diff 134 [facility] [place] [place] [address] Count [phone] Red Blood Count 3.95 M/uL Normal 3.90-5.40 [...] 40.4-72.8 Lymph % 39.3 % Normal 20.0-42.0 [place] % 6.8 % Normal 4.3-13.2 Eo% 7.2 % High 0.0-6.6 Bas% 0.5 % Normal 0.0-1.1 Immature Grans 0.5 % Normal 0.0-5.0 NRBC % 0.0 /100WBC < 10/ 100 WBC Neut# 3.43 K/uL Normal 1.8-7.0 Lymph # 2.95 K/uL Normal 1.0-4.0 [place] # 0.51 K/uL Normal 0.3-0.9 Eos # 0.54 K/uL High 0.0-0.5 Baso # 0.04 K/uL Normal 0.0-0.1 Immature Grans Absolute 0.04 K/uL NRBC # 0.00 K/uL Comprehensive Metabolic 03/28/2019 [facility] Glucose 190 mg/dL High 74-106 Panel [address] [place] [address] [phone] BUN 16 mg/dL Normal 7-18 Creatinine 0.9 mg/dL Normal 0.6-1.3 Glom Filtration Rate, Estimate >60 mL/min >60 If >60 mL/min >60 29 BUN/Creat 17.7 ratio Sodium 138 mmol/L Normal [...] Phosphatase 709 U/L High 45-117 Iron-Tibc-%Sat 03/28/2019 [facility] Serum Iron 126 g/dL Normal 50-170 [address] [place] [address] [phone] Total Iron Binding Capacity 322 g/dL Normal 250-450 Transferrin %Saturation 39 % Normal 12-57 Laboratory test 03/28/2019 [facility] Ferritin 353 ng/mL High 8-252 finding [address] [place] [address] [phone] Iron-Tibc-%Sat 01/10/2019 [facility] Serum Iron 74 g/dL Normal 50-170 30 [address] [place] [address] [phone] Total Iron Binding Capacity 298 g/dL Normal 250-450 Transferrin %Saturation 25 % Normal 12-57 Laboratory test 01/10/2019 [facility] Ferritin 102 ng/mL Normal 8-252 finding [address] [place] [address] [phone] Vitamin B12 And 01/10/2019 [facility] Vitamin B12 358 pg/mL Normal 193-986 Folate [address] [place] [address] [phone] Folic Acid 14.5 ng/mL Normal 3.1-17.5 Laboratory test 01/10/2019 [facility] Vitamin 42.9 30.0-100.0 31 finding [address] D,25-Hydroxy ng/[place] [address] [phone] Sedimentation Rate 15 mm/hr Normal 2-55 32 CBC W/Automated 01/10/2019 [facility] White Blood 7.5 K/uL Normal 3.1-10.[address] [place] [address] [phone] Red Blood Count 3.78 M/uL Low 3.90-5.40 [...] 40.4-72.8 Lymph % 38.7 % Normal 20.0-42.0 [place] % 5.9 % Normal 4.3-13.2 Eo% 5.5 % Normal 0.0-6.6 Bas% 0.7 % Normal 0.0-1.1 Immature Grans 0.4 % Normal 0.0-5.0 NRBC % 0.0 /100WBC < 10/ 100 WBC Neut# 3.65 K/uL Normal 1.8-7.0 Lymph # 2.89 K/uL Normal 1.0-4.0 [place] # 0.44 K/uL Normal 0.3-0.9 Eos # 0.41 K/uL Normal 0.0-0.5 Baso # 0.05 K/uL Normal 0.0-0.1 Immature Grans Absolute 0.03 K/uL NRBC # 0.00 K/uL Comprehensive Metabolic 01/10/2019 [facility] Glucose 129 mg/dL High 74-[address] [place] [address] [phone] BUN 21 mg/dL High 7-18 Creatinine 0.9 mg/dL Normal 0.6-1.3 Glom Filtration Rate, Estimate >60 mL/min >60 If >60 mL/min >60 33 BUN/Creat 23.3 ratio Sodium 139 mmol/L Normal [...] Normal 0.2-1.0 Sgot/Ast 11 U/L Low 15-37 34 SGPT/Alt 21 U/L Normal 12-78 Alkaline Phosphatase 74 U/L Normal 45-117 Laboratory 12/14/2018 [facility] Vitamin 42.2 30.0-100.0 35, 36 test finding 134 [facility] D,25-Hydroxy ng/[place] [address] [phone] Sedimentation Rate 2 mm/hr Normal 2-55 37 DRVVT Mix 50.0 sec High 0.0-47.0 38 DRVVT Confirm 1.1 ratio 0.8-1.2 Vitamin B12 And 12/14/2018 [facility] Vitamin B12 517 pg/mL Normal 193-986 Folate [address] [place] [address] [phone] Folic Acid 9.9 ng/mL Normal 3.1-17.5 Laboratory test 12/14/2018 [facility] Ferritin 114 ng/mL Normal 8-252 finding [address] [place] [address] [phone] Iron-Tibc-%Sat 12/14/2018 [facility] Serum Iron 79 g/dL Normal 50-170 [address] [place] [address] [phone] Total Iron Binding Capacity 291 g/dL Normal 250-450 Transferrin %Saturation 27 % Normal 12-57 Anticardiolipin AB 12/14/2018 [facility] Anticardiolipin < 9 0-14 39 Iga/Igg/Igm [address] [facility] Igg GPLU/[place] [address] [phone] Anticardiolipin Igm, Quant 11 MPLU/mL 0-12 40 Anticardiolipin Iga < 9 APLU/mL 0-11 41 Lupus Anticoagulant Reflex 12/14/2018 [facility] PTT-LA 42.4 sec 0.0-51.[address] [place] [address] [phone] DRVVT 60.8 sec High 0.0-47.0 Note: Comment: . 42 Methylenetetrahydrofolate 12/14/2018 [facility] MTHFR,Dna (SEE [address] Analysis NOTE) [place] [address] [phone] 1 C25.9 K85.90 2 Note: Persistent reduction for 3 months or more in an eGFR <60 mL/min/1.73 m2 defines CKD. Patients with eGFR values >/=60 mL/min/1.73 m2 may also have CKD if evidence of persistent proteinuria is present. The original MDRD equation for estimated GFR is not valid for patients less than 18 years of age. Additional information may be found at www.kdoqi.org. 3 ACUTE PANCREATITIS S/P ERCP 4 Tests: crp magnesium Instructions: 5 C25.9 E61.1 E53.9 D68.9 6 THERAPEUTIC INR RANGE: 2.0 - 3.0 DVT, Pulmonary embolus, prophylaxis against venous thrombosis or systemic embolization in high risk patients. 2.5 - 3.5 Mechanical heart valves 7 Method: Sediplast Modified Westergren 8 Elevated levels of HbA1c suggest the need for more aggressive treatment of glycemia. The [place] [employer] recommends that a primary goal of therapy should be a HbA1c of <7% and that physicians should re-evaluate the treatment regimen in patients with HbA1c values consistently >8%. 9 Vitamin D deficiency has been defined by the [place] [employer] and an Endocrine Society practice guideline as a level of serum 25-OH vitamin D less than 20 ng/mL (1,2). The Endocrine Society went on to further define vitamin D insufficiency as a level between 21 and 29 ng/mL (2). 1. IOM ([place] of [employer]). 2010. Dietary reference intakes for calcium and D. [place]: The National Academies Press. 2. Timothy GRISSOM, Augie NOGUERA, Apolinar LANDA, et al. Evaluation, treatment, and prevention of vitamin D deficiency: an Endocrine Society clinical practice guideline. JCEM. 2010; 96(7):1911-30. Performed at: [address] [id number] Security Intern: Kristy Enriquez MD, Phone: [phone] 10 [facility] Electrochemiluminescence Immunoassay (ECLIA) Values obtained with different assay methods or kits cannot be used interchangeably. Results cannot be interpreted as absolute evidence of the presence or absence of malignant disease. Performed at: [address] [id number] Security Intern: Kristy Enriquez MD, Phone: [phone] 11 Note: Persistent reduction for 3 months or more in an eGFR <60 mL/min/1.73 m2 defines CKD. Patients with eGFR values >/=60 mL/min/1.73 m2 may also have CKD if evidence of persistent proteinuria is present. The original MDRD equation for estimated GFR is not valid for patients less than 18 years of age. Additional information may be found at www.kdoqi.org. 12 Result confirmed by repeat analysis. 13 R10.30 14 > 100,000 CFU/mL 15 NO DX R10.10 I26.99 R10.9, R94.5 16 Negative 0 - 19 Weak positive 20 - 30 Moderate to strong positive >30 Actin Antibodies are found in 52-85% of patients with autoimmune hepatitis or chronic active hepatitis and in 22% of patients with primary biliary cirrhosis. 17 Negative 0.0 - 20.0 Equivocal 20.1 - 24.9 Positive >24.9 Mitochondrial (M2) Antibodies are found in 90-96% of patients with primary biliary cirrhosis. 18 Effective April 25, 2019 Cawku-0-Qhanbccalza, Serum reference interval will be changing to: [...] - 187 101 - 187 Performed at: [facility] [facility] [id number] Security Intern: Kristy Enriquez MD, Phone: [phone] 19 Negative 0 - 19 Weak Positive 20 - 30 Moderate to Strong Positive >30 20 Negative 0 - 19 Weak Positive 20 - 30 Moderate to Strong Positive >30 21 Negative 0 - 3 Weak Positive 4 - 10 Positive >10 Tissue Transglutaminase (tTG) has been identified as the endomysial antigen. Studies have demonstr- ated that endomysial IgA antibodies have over 99% specificity for gluten sensitive enteropathy. 22 Negative 0 - 5 Weak Positive 6 - 9 Positive >9 23 NO DX R10.10 I26.99 R10.9 NO DX R10.10 I26.99 R10.9, R94.5 NO DX R10.10 I26.99 R10.9, R94.5 24 INFCE Result Units: s/co ratio Negative: < 0.8 Indeterminate: 0.8 - 0.9 Positive: > 0.9 The CDC recommends that a positive HCV antibody result be followed up with a HCV Nucleic Acid Amplification test (066382). Performed at: [facility] [id number] Security Intern: Kristy Enriquez MD, Phone: [phone] 25 CALLED LIPASE, GGT TO MAGNUS C. AT 1446 03/29/19 by LAB.LM 26 CALLED LIPASE, GGT TO MAGNUS C. AT 1446 03/29/19 by LAB.LMH 27 CALLED LIPASE, GGT TO MAGNUS C. AT 1446 03/29/19 by LAB.LMH 28 I26.99,D64.9,E56.9 29 Note: Persistent reduction for 3 months or more in an eGFR <60 mL/min/1.73 m2 defines CKD. Patients with eGFR values >/=60 mL/min/1.73 m2 may also have CKD if evidence of persistent proteinuria is present. The original MDRD equation for estimated GFR is not valid for patients less than 18 years of age. Additional information may be found at www.kdoqi.org. 30 I26.99 J44.9 D64.9 31 Vitamin D deficiency has been defined by the [place] [employer] and an Endocrine Society practice guideline as a level of serum 25-OH vitamin D less than 20 ng/mL (1,2). The Endocrine Society went on to further define vitamin D insufficiency as a level between 21 and 29 ng/mL (2). 1. IOM ([place] [employer]). 2010. Dietary reference intakes for calcium and D. [place]: The National Academies Press. 2. Augie Escoto, Apolinar LANDA, et al. Evaluation, treatment, and prevention of vitamin D deficiency: an Endocrine Society clinical practice guideline. JCEM. 2010; 96(7):1911-. Performed at: [address] [id number] Security Intern: Kristy Enriquez MD, Phone: [phone] 32 This result was obtained with an ESR method that is not based on the standard Westergren Method. When comparing results obtained from the traditional Westergren ESR and this method it is important to refer to the reference range for each method. Method: Capillary Photometry 33 Note: Persistent reduction for 3 months or more in an eGFR <60 mL/min/1.73 m2 defines CKD. Patients with eGFR values >/=60 mL/min/1.73 m2 may also have CKD if evidence of persistent proteinuria is present. The original MDRD equation for estimated GFR is not valid for patients less than 18 years of age. Additional information may be found at www.kdoqi.org. 34 Values below the stated reference ranges of AST and ALT can be seen in normal populations. Clinical correlation is suggested. 35 I26.99 J44.9 SEE NOTE 36 Vitamin D deficiency has been defined by the [place] [employer] and an Endocrine Society practice guideline as a level of serum 25-OH vitamin D less than 20 ng/mL (1,2). The Endocrine Society went on to further define vitamin D insufficiency as a level between 21 and 29 ng/mL (2). 1. IOM ([place] [employer]). 2010. Dietary reference intakes for calcium and D. [place]: The National Academies Press. 2. Augie Escoto, Apolinar LANDA, et al. Evaluation, treatment, and prevention of vitamin D deficiency: an Endocrine Society clinical practice guideline. JCEM. 2010; 96(7):1911-30. Performed at: [address] [id number] Security Intern: Kristy Enriquez MD, Phone: [phone] 37 This result was obtained with an ESR method that is not based on the standard Westergren Method. When comparing results obtained from the traditional Westergren ESR and this method it is important to refer to the reference range for each method. Method: Capillary Photometry 38 Performed at: [address] [id number] Security Intern: Xu Emery MD, Phone: [phone] Negative: <15 Indeterminate: 15 - 20 Low-Med Positive: >20 - 80 High Positive: >80 40 Negative: <13 Indeterminate: 13 - 20 Low-Med Positive: >20 - 80 High Positive: >80 41 Negative: <12 Indeterminate: 12 - 20 Low-Med Positive: >20 - 80 High Positive: >80 Performed at: [address] [id number] Security Intern: Kristy Enriquez MD, Phone: [phone] 42 12/18/18 1012: Note: previously reported as: Performed at: [address] [id number] Security Intern: Xu Emery MD, Phone: [phone] Amended result called to: [] - 12/18/18 at 1012 No lupus anticoagulant was detected. These results are consistent with specific inhibitors to one or more common pathway factors (X, V, II or fibrinogen). Performed at: [address] [id number] Security Intern: Xu Emery MD, Phone: [phone] 43 Result: [id number] Two copies of the same mutation ([id number]) identified Interpretation: This individual is homozygous for the MTHFR J3313B variant (two copies). The MTHFR C677T variant [...] common variants in the MTHFR gene, c.655c>T (p.Mxk934Gymd), referred to as C677T, and c.1286A>C (p.Est558Ddm), referred to as Q3313C. Individuals homozygous for C677T (two copies of [...] conditions in the absence of hyperhomocysteinemia. The M8045S variant is not associated with elevated homocysteine levels unless a C677T variant is also present; however, the clinical significance of heterozygosity for both C677T and M5114P is controversial. Population data suggest that these [...] health care providers to discuss results at [address] [place] [address]. Methodology: DNA analysis of the MTHFR gene was performed by PCR amplification followed by restriction analysis. The diagnostic sensitivity is >99% for both. Molecular-based testing is highly accurate, but as in any laboratory test, rare diagnostic errors may occur. All test results must be combined with clinical information for the most accurate interpretation. This test was developed and its performance characteristics determined by [employer]. It has not been cleared or approved by the Food and Drug Administration. References: Verao LD, Alejandro Q. Am J Epidemiol 2000; 151(9):862-877. Elena ANDERSON, Pablito BAEZ. Arch Pathol Lab Med 2007; 131(6):872-884. Frosst P et al. Yomaira María Elena 1995; 10(1):111-113. Oseas SE et al. María Elena Med 2013; 15(2):153-156. Viet C et al. Obstet Gynecol 2011; 118(3):730-740. Luis Antonio B et al. Eur J Epidemiol 2013; 28(8):621-647. August Emerson, PhD, FACMG Erika Arreguin, PhD, FACMG Yanet TiradoSCecy, PhD, FACMG Luzma Maria, PhD, FAC Jihan Goddard, PhD, FAC Sam Atkins, PhD, FAC Performed at: - [facility] [address] [facility], [facility], [place] [id number] Security Intern: Aime Foster MD, Phone: [phone] Procedures Date Code Description Status 05/20/2019 57759 Fluoroscopic Central Venous Access Device Placement Or Completed Removal 05/20/2019 50331 Insertion Tunneled Cent Venous Cathr W Subcut Port 5 Yrs Completed Or Oldr 12/06/2018 11288 Bronchospasm Provocation Evaluation Multi Spirometric Completed Determinati 12/06/2018 59878 Spirometry Completed Medical Devices Description No Information Available Encounters Type Date Location Provider Dx Diagnosis Office Visit 05/16/2019 Oncology Office Paulina Cooper, C25.0 Malignant neoplasm 3:00p DO of head of pancreas I26.99 Other pulmonary embolism without acute cor pulmonale R17 Unspecified jaundice Office Visit 05/02/2019 2:15p Walk In [facility], J02.9 Acute pharyngitis, Clinic [facility] Moore unspecified R10.30 Lower abdominal pain, unspecified Office Visit 03/29/2019 2:00p Samy Baldwin MD R94.5 Abnormal results of liver function studies R10.13 Epigastric pain Office Visit 03/29/2019 10:00a Oncology Office [place], I26.99 Other pulmonary Paulina, DO embolism without acute cor pulmonale R10.13 Epigastric pain R94.5 Abnormal results of liver function studies Office Visit 01/03/2019 12:30p Oncology Office Kenneth, I26.99 Other pulmonary Paulina, DO embolism without acute cor pulmonale E56.9 Vitamin deficiency, unspecified Office Visit 12/29/2018 9:20a Pulmonology Mavis Salmeron, J44.9 Chronic obstructive PA pulmonary disease, unspecified I26.99 Other pulmonary embolism without acute cor pulmonale Office Visit 12/14/2018 1:00p Oncology Office Kenneth, I26.99 Other pulmonary Paulina, DO embolism without acute cor pulmonale I26.99 Other pulmonary embolism without acute cor pulmonale J44.9 Chronic obstructive pulmonary disease, unspecified J44.9 Chronic obstructive pulmonary disease, unspecified D64.9 Anemia, unspecified D64.9 Anemia, unspecified Assessments Date Code Description Provider 05/27/2019 C25.0 Malignant neoplasm of head of Paulina Cooper, DO pancreas 05/27/2019 I26.99 Other pulmonary embolism without Borosaal, Paulina, DO acute cor pulmonale 05/21/2019 K85.90 Acute pancreatitis without necrosis Deandra Guerrero M.D. or infection, unspecified 05/21/2019 C25.9 Malignant neoplasm of pancreas, Deandra Guerrero M.D. unspecified 05/21/2019 I26.99 Other pulmonary embolism without Deandra Guerrero M.D. acute cor pulmonale 05/21/2019 E11.9 Type 2 diabetes mellitus without Deandra Guerrero M.D. complications 05/20/2019 K85.90 Acute pancreatitis without necrosis Ever March M.D. or infection, unspecified 05/20/2019 K85.90 Acute pancreatitis without necrosis Deandra Guerrero M.D. or infection, unspecified 05/20/2019 C25.9 Malignant neoplasm of pancreas, Ever March M.D. unspecified 05/20/2019 C25.9 Malignant neoplasm of pancreas, Deandra Guerrero M.D. unspecified 05/20/2019 I26.99 Other pulmonary embolism without Deandra Guerrero M.D. acute cor pulmonale 05/20/2019 E11.9 Type 2 diabetes mellitus without Deandra Guerrero M.D. complications 05/19/2019 K85.90 Acute pancreatitis without necrosis Ever March M.D. or infection, unspecified 05/19/2019 K85.90 Acute pancreatitis without necrosis Deandra Guerrero M.D. or infection, unspecified 05/19/2019 C25.9 Malignant neoplasm of pancreas, Ever March M.D. unspecified 05/19/2019 C25.9 Malignant neoplasm of pancreas, Deandra Guerrero M.D. unspecified 05/19/2019 I26.99 Other pulmonary embolism without Deandra Guerrero M.D. acute cor pulmonale 05/19/2019 E11.9 Type 2 diabetes mellitus without Deandra Guerrero M.D. 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 anticoagulants 03/29/2019 R94.5 Abnormal results of liver function Winnie Coopert, DO studies 03/28/2019 I26.99 Other pulmonary embolism [...] Paulina, DO 12/29/2018 J44.9 Chronic obstructive pulmonary Juliorath, Mavis, PA disease, unspecified 12/29/2018 I26.99 Other pulmonary embolism without Walrath, Mavis, PA acute cor pulmonale 12/14/2018 I26.99 [...] MD disease, unspecified Plan of Treatment Future Appointment(s):06/01/2019 8:00 am - Infusion Chair 5 at Infusion Uiifrq9806/01/2019 8:15 am - Vanita Landon RESTAURANT BARTENDER at Infusion Soiidg1005/31/2019 9:45 am - Oncology Nurse at Oncology Zllwdy2607/06/2019 10:00 am - Mavis Salmeron PA at Pulmonology Functional Status Description No Information Available Mental Status Description No Information Available Referrals Refer to Dr Reason for Referral Status Appt Date Ever March MD port placement - adenocarcinoma of Scheduled pancreas [address] [place] [address] [phone]
--- OUTSIDE RECORDS SUMMARY | 2019-06-02 14:44 | XMS REPORT | Summary of Care ---
:1945 Author Organization [facility] Address [address] [place] [address] Care Team Providers Name Role Phone Jan Sumner Primary Care Provider Reason for Visit Auth/Cert Status Reason Specialty Diagnoses / Procedures Referred By Contact Referred To Contact Diagnoses Malignant neoplasm of pancreas, unspecified location of malignancy [C25.9] Brett Lopez MD [address] [place] [id number] Email: [email or web address] Encounter Details Date Type Department Care Team Description 05/18/2019 Hospital Encounter 01W [facility] Brett Lopez MD [address] [place] [address] [place], [place] [id number] Allergies Active Allergy Reactions Severity Noted Date Comments Celecoxib Other (See Comments) 05/04/2019 Ankle swelling Levofloxacin Rash Low 05/04/2019 Turned "red" Nickel Itching Medium 05/04/2019 Fluoxetine Hcl Other (See Comments) 05/04/2019 Irritable documented as of this encounter (statuses as of 05/18/2019) Medications Medication Sig Dispensed Refills Start Date End Date Status metFORMIN HCl 1000 MG Take 1,000 mg by 0 Active Oral Tablet mouth Two times (GLUCOPHAGE) daily with meals Omeprazole 20 MG Oral Take 20 mg by 0 Active Capsule Delayed mouth Two Times Release (PriLOSEC) Daily buPROPion HCl ER (XL) Take 150 mg by 0 Active 150 MG Oral Tablet mouth every Extended Release 24 morning Hour (WELLBUTRIN XL) Folic Acid 1 MG Oral Take 1 mg by 0 Active Tablet (FOLVITE) mouth daily Simvastatin 20 MG Oral Take 20 mg by 0 Active Tablet (ZOCOR) mouth nightly Jdkjceg-Nohmkx-Bqcmcky Take by mouth 0 Active e (CREON 10 PO) Calcium Take 1 tablet by 0 Active Carbonate-Vitamin D mouth daily 500-200 MG-UNIT Oral Tablet (OSCAL-500) Ventolin HFA 108 (90 INHALE ONE TO 0 10/23/2018 Active Base) MCG/ACT TWO PUFFS BY Inhalation Aerosol MOUTH EVERY 4 TO Solution 6 HOURS NEEDED FOR FOR SHORTNESS OF BREATH Omeprazole 40 MG Oral Take 40 mg by 5 04/14/2019 Active Capsule Delayed mouth Two Times Release (PRILOSEC) Daily Eliquis 5 MG Oral Take 5 mg by 0 04/12/2019 Active Tablet mouth Two Times Daily Cholestyramine 4 GM Take 1 packet by 0 Active Oral Packet (QUESTRAN) mouth Three times daily with meals Ondansetron HCl 4 MG Take 4 mg by 0 Active Oral Tablet (ZOFRAN) mouth every 8 (eight) hours as needed for Nausea Pancrelipase Take 1 capsule 270 capsule 3 05/12/2019 Active (Hzy-Uejl-Fhgb) 84864 by mouth Three UNIT Oral Capsule times daily with Delayed Release meals Particles (CREON) documented as of this encounter (statuses as of 05/18/2019) Active Problems Problem Noted Date Adenocarcinoma of pancreas 05/12/2019 documented as of this encounter (statuses as of 05/18/2019) Social History Tobacco Use Types Packs/Day Years Used Date Never Smoker 0 Smokeless Tobacco: Never Used Alcohol Use Drinks/Week oz/Week Comments Not Currently Sex Assigned at Date Recorded Female 05/12/2019 10:18 AM EST Job Start Date Occupation Industry Not on file Not on file Not on file Travel History Travel Start Travel End No recent travel history available. documented as of this encounter Last Filed Vital Signs Vital Sign Reading Time Taken Comments Blood Pressure 117/69 05/18/2019 6:10 PM EST Pulse 68 05/18/2019 6:10 PM EST Temperature 36.7 05/18/2019 3:40 PM EST C (98.1 F) Respiratory Rate 16 05/18/2019 6:10 PM EST Oxygen Saturation 100% 05/18/2019 6:10 PM EST Inhaled Oxygen Concentration - - Weight 88.9 kg (196 lb) 05/18/2019 11:00 AM EST Height 154.9 cm (5' 1") 05/18/2019 11:00 AM EST Body Mass Index 37.03 05/18/2019 11:00 AM EST documented in this encounter Progress Notes Bethany Stock RN - 05/18/2019 6:15 PM ESTPt discharged. IV removed. VSS. Pt states that she is okay with leaving with a 5/10 abdominal pain, does not want nurse to call MD for medication because she has an appointment in the morning in [place]. Discussed at length with patient about obtaining more pain medication and speaking to MD further about pain. Pt refuses and states she is comfortable with discharge. Discharge paperwork reviewed with pt, pt states she has no questions or concerns about discharge or discharge paperwork. Pt brought to [facility] [employer] via wheelchair. Discharge will be made aware. documented in this encounter Plan of Treatment Date Type Specialty Care Team Description 05/24/2019 [facility] Surgery Joyce Finch MD PhD [address] [place] [address] [phone] 05/25/2019 [facility] Surgery Name Type Priority Associated Diagnoses Order Schedule POCT glucose, Point of Care Routine Once for 1 docked (if Testing-Docked Occurrences starting diabetic) Device 05/18/2019 until 05/18/2019 ERCP - Imaging GI Routine Once for 1 Occurrences starting 05/18/2019 until 05/18/2019 Health Maintenance Due Date Last Done Comments MMR Vaccines (1 of 1 - Standard 01/16/1946 series) DTaP,Tdap,and Td Vaccines (1 - 01/16/1951 Tdap) Colon Cancer Screening 10 yrs 01/16/1994 Zoster Vaccines (1 of 2) 01/16/1994 Osteoporosis Screening 2 yr 01/16/2009 Pneumococcal Vaccine: 65+ Years (1 01/16/2009 of 2 - PCV13) Influenza Vaccine 03/29/2019 Breast Cancer Screening 2 years 10/25/2020 10/25/2018 HIB Vaccines Aged Out No longer eligible based on patient's age to complete this topic Hepatitis A Vaccines Aged Out No longer eligible based on patient's age to complete this topic Hepatitis B Vaccines Aged Out No longer eligible based on patient's age to complete this topic IPV Vaccines Aged Out No longer eligible based on patient's age to complete this topic Pneumococcal Vaccine: Pediatrics Aged Out No longer eligible based on (0 to 5 Years) and At-Risk patient's age to complete Patients (6 to 64 Years) this topic Varicella Vaccines Aged Out No longer eligible based on patient's age to complete this topic documented as of this encounter Implants Implanted Type Area Aeronautical Research Engineer Device Shelf Model / Identifier Expiration Date Serial / Lot Stent Wallflex Cvrd [id number] - [id number] [employer] 04/04/2021 [id number] / Implanted: Qty: 1 on 05/18/2019 by Brett Lopez MD at OR [facility] / [id number] Description:Common bile duct documented as of this encounter Procedures Procedure Name Priority Date/Time Associated Diagnosis Comments POCT GLUCOSE, Routine 05/18/2019 11:50 AM Results for this DOCKED EST procedure are in the results section. ERCP REPORT 05/18/2019 12:00 AM EST documented in this encounter Results POCT glucose, docked (05/18/2019 11:50 AM EST) POC Glucose 129 70 - 140 mg/dL [facility] POC Specimen Whole Blood Performing Organization Address City/State/Zipcode Phone Number POINT OF CARE TEST [address] POC [address] [place] [address] documented in this encounter Administered Medications Medication Order MAR Action Action Date Dose Rate Site heparin flush (porcine) 100 UNIT/ML injection 500 Units 500 Units, Intravenous, Continuous PRN, Line Care, Starting Thu05/18/19 at 1125, For 30 days, Pre-op, Verify blood return before use. For deaccessing: flush with 10 mL Sodium Chloride 0.9 % followed by 5 mL Heparin 100 units/mL. Flush per CM C-34C Central Line Policy for Infusaport., heparin lock flush 10 UNIT/ML injection 50 Units 50 Units, Intravenous, Continuous PRN, Line Care, Starting Thu05/18/19 at 1125 , For 30 days, Pre-op, Verify blood return before use. For intermittent access: flush with 10 mL Sodium Chloride 0.9 % followed by 5 mL Heparin 10 units/mL. Flush per CM C-34C Central Line Policy for [employer]., sodium chloride (preservative free) 0.9 % flush 10 mL 10 mL, Intravenous, Continuous PRN, Line Care, Starting Thu05/18/19 at 1125, For 30 days, Pre-op, Verify blood return before use. For intermittent access: flush with 10 mL Sodium Chloride 0.9 % followed by 5 mL Heparin 10 units/mL. Flush per CM C-34C Central Line Policy for [employer]., sodium chloride (preservative free) 0.9 % flush 10 mL 10 mL, Intravenous, Continuous PRN, Line Care, Starting Thu05/18/19 at 1125, For 30 days, Pre-op, Verify blood return before use. For deaccessing: flush with 10 mL Sodium Chloride 0.9 % followed by 5 mL Heparin 100 units/mL. Flush per CM C- 34C Central Line Policy for [employer]., sodium chloride (preservative free) 0.9 % flush 3 mL 3 mL, Intravenous, Every 8 hours Standard (3 times per day), First dose on Thu05/18/19 at 1700, For 30 days, Pre-op, Saline Lock. Flush Q8H and after each use to Saline Lock., sodium chloride (preservative free) 0.9 % flush 3 mL 3 mL, Intravenous, Continuous PRN, Line Care, Starting Thu05/18/19 at 1125, For 30 days, Pre-op, Saline Lock. Flush Q8H and after each use to Saline Lock., Medication Order MAR Action Action Date Dose Rate Site fentaNYL (SUBLIMAZE) (PF) Given by IV push 05/18/2019 3:52 PM EST 50 mcg injection 50 mcg 50 mcg, Intravenous, Once, Thu05/18/19 at 1600, For 1 dose documented in this encounter
--- OUTSIDE RECORDS SUMMARY | 2019-06-02 14:45 | XMS REPORT | Summary of Care ---
:[address] 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 [address] [place] [address] [address] [place] [address] Allergies Active Allergy Reactions Severity Noted Date Comments Celecoxib Other (See Comments) 05/04/2019 Ankle swelling Levofloxacin Rash Low 05/04/2019 Turned "red" Nickel Itching Medium 05/04/2019 Fluoxetine Hcl Other (See Comments) 05/04/2019 Irritable documented as of this encounter (statuses as of 05/04/2019) Medications Medication Sig Dispensed Refills Start Date [...] 1 MG Oral Take 1 mg by mouth 0 Active Tablet (FOLVITE) daily Simvastatin 20 MG Oral Take 20 mg by 0 Active Tablet (ZOCOR) mouth nightly Rbseehb-Ixqtit-Ogjfbpm Take by mouth 0 Active e (CREON 10 PO) Calcium Take 1 tablet by 0 Active Carbonate-Vitamin D mouth daily 500-200 MG-UNIT Oral Tablet (OSCAL-500) documented as of this encounter (statuses as of 05/04/2019) Active Problems Not on filedocumented as of this encounter (statuses as of 05/04/2019) Social History Tobacco Use Types Packs/Day Years Used Date Never Assessed 0 Sex Assigned at Date Recorded Not on file Job Start Date Occupation Industry Not on file Not on file Not on file Travel History Travel Start Travel End No recent travel history available. documented as of this encounter Last Filed Vital Signs Vital Sign Reading Time Taken Comments Blood Pressure 105/71 05/04/2019 12:45 PM EST Pulse 79 05/04/2019 12:45 PM EST Temperature 36.4 05/04/2019 12:26 PM EST C (97.5 F) Respiratory Rate 18 05/04/2019 12:45 PM EST Oxygen Saturation 95% 05/04/2019 12:45 PM EST Inhaled Oxygen Concentration - - Weight 91.6 kg (202 lb) 05/04/2019 10:09 AM EST Height 156.2 cm (5' 1.5") 05/04/2019 10:09 AM EST Body Mass Index 37.55 05/04/2019 10:09 AM EST documented in this encounter Plan of Treatment Date Type Specialty Care Team Description 05/12/2019 [facility] Surgery Name Type Priority Associated Diagnoses Date/Time Fine Needle Pathology and Routine 05/04/2019 12:09 PM Aspirate Cytology EST Name Type Priority Associated Order Schedule Diagnoses POCT glucose, Point of Care Routine Once for 1 docked (if Testing-Docked Occurrences starting diabetic) Device 05/04/2019 until 05/04/2019 Fine Needle Pathology and Routine Once for 1 Aspirate Cytology Occurrences starting 05/04/2019 until 05/04/2019 Health Maintenance Due Date Last Done Comments MMR Vaccines (1 of 1 - Standard 01/16/1946 series) DTaP,Tdap,and Td Vaccines (1 - 01/16[birth year]1951 Tdap) Breast Cancer Screening 2 years 01/16/1994 Colon Cancer Screening 10 yrs 01/16/1994 Zoster Vaccines (1 of 2) 01/16/1994 Osteoporosis Screening 2 yr 01/16/2009 Pneumococcal Vaccine: 65+ Years (1 01/16/2009 of 2 - PCV13) Influenza Vaccine 03/29/2019 HIB Vaccines Aged Out No longer eligible [...] Years) and At-Risk patient's age to complete this Patients (6 to 64 Years) topic Varicella Vaccines Aged Out No longer eligible based on patient's age to complete this topic documented as of this encounter Procedures Procedure Name Priority Date/Time Associated Diagnosis Comments UPPER EUS (ENDOSCOPIC 05/04/2019 12:00 AM EST ULTRASOUND) documented in this encounter Results Not on filedocumented in this encounter Administered Medications Medication Order MAR Action Action Date Dose Rate Site heparin flush (porcine) 100 UNIT/ML injection 500 Units 500 Units, Intravenous, Continuous PRN, Line Care, Starting Thu05/04/19 at 1037 , For 30 days, Pre-op, Verify blood return before use. For deaccessing: flush with 10 mL Sodium Chloride 0.9 % followed by 5 mL Heparin 100 units/mL. Flush per CM C-34C Central Line Policy for Infusaport., heparin lock flush 10 UNIT/ML injection 50 Units 50 Units, Intravenous, Continuous PRN, Line Care, Starting Thu05/04/19 at 1037 , For 30 days, Pre-op, Verify blood return before use. For intermittent access: flush with 10 mL Sodium Chloride 0.9 % followed by 5 mL Heparin 10 units/mL. Flush per CM C-34C Central Line Policy for [employer]., sodium chloride (preservative free) 0.9 % flush 10 mL 10 mL, Intravenous, Continuous PRN, Line Care, Starting Thu05/04/19 at 1037, For 30 days, Pre-op, Verify blood return before use. For intermittent access: flush with 10 mL Sodium Chloride 0.9 % followed by 5 mL Heparin 10 units/mL. Flush per CM C-34C Central Line Policy for [employer]., sodium chloride (preservative free) 0.9 % flush 10 mL 10 mL, Intravenous, Continuous PRN, Line Care, Starting Thu05/04/19 at 1037, For 30 days, Pre-op, Verify blood return before use. For deaccessing: flush with 10 mL Sodium Chloride 0.9 % followed by 5 mL Heparin 100 units/mL. Flush per CM C- 34C Central Line Policy for Inf[employer]ort., sodium chloride (preservative free) 0.9 % flush 3 mL 3 mL, Intravenous, Every 8 hours Standard (3 times per day), First dose on Thu05/04/19 at 1700, For 30 days, Pre-op, Saline Lock. Flush Q8H and after each use to Saline Lock., sodium chloride (preservative free) 0.9 % flush 3 mL 3 mL, Intravenous, Continuous PRN, Line Care, Starting Thu05/04/19 at 1037, For 30 days, Pre-op, Saline Lock. Flush Q8H and after each use to Saline Lock., documented in this encounter
--- OUTSIDE RECORDS SUMMARY | 2019-06-02 14:45 | XMS REPORT | Continuity of Care Document ---
:1945 External Reference #:[id number] Author Name Yahaira Ritter Care Team Providers Name Role Phone Jan Sumner PA - Medical Care Team Information Certified Nursing Attendant [phone] Problems Active Problems Provider Date Epigastric pain Samy Clements MD Onset: 03/29/2019 [...] Medications SIG Qnty Indications Ordering Date Provider Folic Acid 1 tabl by mouth 30tabs Kenneth, 01/03/2019 1mg Tablets every day DO Paulina Ventolin HFA take 2 puffs every 8gm Jaison Lewis, 11/19/2018 6 hours as needed 108(90Base) mcg/Act for shortness of Aerosol breath. Anoro Ellipta 1 inhalation every 30units Jaison Lewis, 11/19/2018 day. please teach 62.5-25mcg/Inh use. Aerosol Metformin HCL take two tablets Unknown 500mg by mouth twice a Tablets day Simvastatin 1 by mouth every Unknown 20mg day Tablets Omeprazole 1 by mouth bid Unknown 40mg [...] Mouth Every Day 300mg Tablets ER 24HR CBD Oil uses sometimes Unknown Immunizations Description No Information Available Vital Signs Date Vital Result Comment 05/02/2019 2:31pm BP Systolic 134 mmHg BP Diastolic 86 mmHg Body Temperature 97.7 F Heart Rate 81 /min Respiratory Rate 22 /min Weight 202.12 lb O2 % BldC Oximetry 98 % Pain Level 0 03/29/2019 9:43am BP Systolic 154 mmHg BP Diastolic 78 mmHg Body Temperature 98.2 F Heart Rate 72 /min Respiratory Rate 18 /min Weight 211.50 lb O2 % BldC Oximetry 97 % Pain Level 3 just under sternum Results Test Acquired Date Facility Test Result H/L Range Note Urine Culture 05/02/2019 [facility] Urine Culture URETHRAL DORIS [address] [place], [place] [id number] [phone] Quantity > 100,000 CFU/mL 2 Urine Dipstick 05/02/2019 [facility] Inhouse Ua Color Dark Yellow Ua Clarity Clear Clear Ua Leuko 125 High Negative Ua Nitrite Negative Negative Ua Urobilinogen 4 High 0.2 - 1.0 E.U./dL Ua Protein 100 High Negative Ua PH 5.0 Low 6.5-7.5 Ua Blood Negative Negative Ua Specific [place] 1.030 1.010-1.030 Ua Ketones 5 High Negative Ua Bilirubin 2 High Negative Ua Glucose 500 High Negative Laboratory test 05/02/2019 [facility] Inhouse Rapid Group A Neg Pos, Neg, finding Strep Invalid Laboratory test 03/29/2019 [facility] Anti-Nuclear Negative Negative [address] Antibodies AU/[place] [address] Direct [phone] Actin (Smooth Muscle) Antibody 9 units 0-19 4 Mitochondrial (M2) Antibodies <20.0 units 0.0-20.0 5 Ysgpu-7-Lsinznjzsip,Serum 154 mg/dL 90-200 6 Ceruloplasmin 29.9 mg/dL 19.0-39.0 Celiac Disease 03/29/2019 [facility] Immunoglobulin A 117 mg/dL 64-422 Comp AB Profile [address] [place], [place] [id number] [phone] Antigliadin Abs, IgG 1 units 0-19 7 Antigliadin Abs, IgA 2 units 0-19 8 Endomysial IgA Antibody Negative Negative t-Transglutaminase IgA <2 U/mL 0-3 9 t-Transglutaminase IgG <2 U/mL 0-5 10 Laboratory test 03/29/2019 [facility] Ferritin 587 ng/mL High 8-252 finding [address] [place], [place] [id number] [phone] Hepatitis 03/29/2019 [facility] Hepatitis A Negative Negative 11 Evaluation 134 [facility] Antibody IgM [place], [place] [id number] [phone] HBsAg Screen [Ref Lab] Negative Negative Hepatitis B Core IgM Negative Negative HCV Signal/Cutoff ratio 0.2 s/corat 0.0-0.9 12 Laboratory test 03/29/2019 [facility] Fibrinogen 693 mg/dL High 200-467 finding [address] [place], [place] [address] [phone] Gamma Glutamyl Transpeptidase 1510 U/L Critical high 5-85 13 Amylase 99 U/L Normal 25-115 14 Lipase 2009 U/L Critical high 56-289 15 CBC W/Automated 03/28/2019 [facility] White 7.5 K/uL Normal 3.1-10.7 16 Diff 134 [facility] [place] [address] Count [phone] Red Blood Count 3.95 M/uL Normal 3.90-5.40 [...] 40.4-72.8 Lymph % 39.3 % Normal 20.0-42.0 [place] % 6.8 % Normal 4.3-13.2 Eo% 7.2 % High 0.0-6.6 Bas% 0.5 % Normal 0.0-1.1 Immature Grans 0.5 % Normal 0.0-5.0 NRBC % 0.0 /100WBC < 10/ 100 WBC Neut# 3.43 K/uL Normal 1.8-7.0 Lymph # 2.95 K/uL Normal 1.0-4.0 [place] # 0.51 K/uL Normal 0.3-0.9 Eos # 0.54 K/uL High 0.0-0.5 Baso # 0.04 K/uL Normal 0.0-0.1 Immature Grans Absolute 0.04 K/uL NRBC # 0.00 K/uL Comprehensive Metabolic 03/28/2019 [facility] Glucose 190 mg/dL High 74-106 Panel [address] [place] [address] [phone] BUN 16 mg/dL Normal 7-18 Creatinine 0.9 mg/dL Normal 0.6-1.3 Glom Filtration Rate, Estimate >60 mL/min >60 If >60 mL/min >60 17 BUN/Creat 17.7 ratio Sodium 138 mmol/L Normal [...] Phosphatase 709 U/L High 45-117 Iron-Tibc-%Sat 03/28/2019 [facility] Serum Iron 126 g/dL Normal 50-170 [address] [place], [place] [id number] [phone] Total Iron Binding Capacity 322 g/dL Normal 250-450 Transferrin %Saturation 39 % Normal 12-57 Laboratory test 03/28/2019 [facility] Ferritin 353 ng/mL High 8-252 finding [address] [place], [place] [address] [phone] Comprehensive 01/10/2019 [facility] Glucose 129 mg/dL High 74-106 18 Metabolic Panel [address] [place], [place] [address] [phone] BUN 21 mg/dL High 7-18 Creatinine 0.9 mg/dL Normal 0.6-1.3 Glom Filtration Rate, Estimate >60 mL/min >60 If >60 mL/min >60 19 BUN/Creat 23.3 ratio Sodium 139 mmol/L Normal [...] Normal 0.2-1.0 Sgot/Ast 11 U/L Low 15-37 20 SGPT/Alt 21 U/L Normal 12-78 Alkaline Phosphatase 74 U/L Normal 45-117 CBC W/Automated 01/10/2019 [facility] White Blood 7.5 K/uL Normal 3.1-10.7 Diff [address] [place], [place] [address] [phone] Red Blood Count 3.78 M/uL Low 3.90-5.40 [...] 40.4-72.8 Lymph % 38.7 % Normal 20.0-42.0 [place] % 5.9 % Normal 4.3-13.2 Eo% 5.5 % Normal 0.0-6.6 Bas% 0.7 % Normal 0.0-1.1 Immature Grans 0.4 % Normal 0.0-5.0 NRBC % 0.0 /100WBC < 10/ 100 WBC Neut# 3.65 K/uL Normal 1.8-7.0 Lymph # 2.89 K/uL Normal 1.0-4.0 [place] # 0.44 K/uL Normal 0.3-0.9 Eos # 0.41 K/uL Normal 0.0-0.5 Baso # 0.05 K/uL Normal 0.0-0.1 Immature Grans Absolute 0.03 K/uL NRBC # 0.00 K/uL Laboratory test 01/10/2019 [facility] Vitamin 42.9 30.0-100.0 [address] D,25-Hydroxy ng/[place] [address] [phone] Sedimentation Rate 15 mm/hr Normal 2-55 22 Vitamin B12 And 01/10/2019 [facility] Vitamin B12 358 pg/mL Normal 193-986 Folate [address] [place] [address] [phone] Folic Acid 14.5 ng/mL Normal 3.1-17.5 Laboratory test 01/10/2019 [facility] Ferritin 102 ng/mL Normal 8-252 finding [address] [place] [address] [phone] Iron-Tibc-%Sat 01/10/2019 [facility] Serum Iron 74 g/dL Normal 50-[address] [place] [address] [phone] Total Iron Binding Capacity 298 g/dL Normal 250-450 Transferrin %Saturation 25 % Normal 12-57 Methylenetetrahydrofolate 12/14/2018 [facility] MTHFR,Dna (SEE 23, Redu [address] Analysis NOTE) 24 [place] [address] [phone] Lupus Anticoagulant Reflex 12/14/2018 [facility] PTT-LA 42.[address] 0- [place] [address] 51 [phone] .9 DRVVT 60.8 sec High 0.0-47.0 Note: Comment: . 25 Anticardiolipin AB 12/14/2018 [facility] Anticardiolipin < 9 0-14 26 Iga/Igg/Igm [address] [facility] Igg GPLU/[place] [address] [phone] Anticardiolipin Igm, Quant 11 MPLU/mL 0-12 27 Anticardiolipin Iga < 9 APLU/mL 0-11 28 Iron-Tibc-%Sat 12/14/2018 [facility] Serum Iron 79 g/dL Normal 50-170 [address] [place] [address] [phone] Total Iron Binding Capacity 291 g/dL Normal 250-450 Transferrin %Saturation 27 % Normal 12-57 Laboratory test 12/14/2018 [facility] Ferritin 114 ng/mL Normal 8-252 finding [address] [place] [address] [phone] Vitamin B12 And 12/14/2018 [facility] Vitamin B12 517 pg/mL Normal 193-986 Folate [address] [place] [address] [phone] Folic Acid 9.9 ng/mL Normal 3.1-17.5 Laboratory test 12/14/2018 [facility] Vitamin 42.2 30.0-100.0 29 finding [address] D,25-Hydroxy ng/[place] [address] [phone] Sedimentation Rate 2 mm/hr Normal 2-55 30 DRVVT Mix 50.0 sec High 0.0-47.0 31 DRVVT Confirm 1.1 ratio 0.8-1.2 1 R10.30 2 > 100,000 CFU/mL 3 NO DX R10.10 I26.99 R10.9, R94.5 4 Negative 0 - 19 Weak positive 20 - 30 Moderate to strong positive >30 Actin Antibodies are found in 52-85% of patients with autoimmune hepatitis or chronic active hepatitis and in 22% of patients with primary biliary cirrhosis. 5 Negative 0.0 - 20.0 Equivocal 20.1 - 24.9 Positive >24.9 Mitochondrial (M2) Antibodies are found in 90-96% of patients with primary biliary cirrhosis. 6 Effective April 25, 2019 Ijmdb-4-Mxerkfqmapk, Serum reference interval will be changing to: [...] - 187 101 - 187 Performed at: [facility] [address] [id number] Base Draw Operator: Kristy Enriquez MD, Phone: [phone] 7 Negative 0 - 19 Weak Positive 20 - 30 Moderate to Strong Positive >30 8 Negative 0 - 19 Weak Positive 20 - 30 Moderate to Strong Positive >30 9 Negative 0 - 3 Weak Positive 4 - 10 Positive >10 Tissue Transglutaminase (tTG) has been identified as the endomysial antigen. Studies have demonstr- ated that endomysial IgA antibodies have over 99% specificity for gluten sensitive enteropathy. 10 Negative 0 - 5 Weak Positive 6 - 9 Positive >9 11 NO DX R10.10 I26.99 R10.9 NO DX R10.10 I26.99 R10.9, R94.5 NO DX R10.10 I26.99 R10.9, R94.5 12 INFCE Result Units: s/co ratio Negative: < 0.8 Indeterminate: 0.8 - 0.9 Positive: > 0.9 The CDC recommends that a positive HCV antibody result be followed up with a HCV Nucleic Acid Amplification test (879378). Performed at: [facility] [address] [id number] Base Draw Operator: Kristy Enriquez MD, Phone: [phone] 13 CALLED LIPASE, GGT TO MAGNUS C. AT 1446 03/29/19 by LAB.[facility] 14 CALLED LIPASE, GGT TO MAGNUS C. AT 1446 03/29/19 by LAB.LM[facility] 15 CALLED LIPASE, GGT TO MAGNUS C. AT 1446 03/29/19 by LAB.[facility] 16 I26.99,D64.9,E56.9 17 Note: Persistent reduction for 3 months or more in an eGFR <60 mL/min/1.73 m2 defines CKD. Patients with eGFR values >/=60 mL/min/1.73 m2 may also have CKD if evidence of persistent proteinuria is present. The original MDRD equation for estimated GFR is not valid for patients less than 18 years of age. Additional information may be found at www.kdoqi.org. 18 I26.99 J44.9 D64.9 19 Note: Persistent reduction for 3 months or more in an eGFR <60 mL/min/1.73 m2 defines CKD. Patients with eGFR values >/=60 mL/min/1.73 m2 may also have CKD if evidence of persistent proteinuria is present. The original MDRD equation for estimated GFR is not valid for patients less than 18 years of age. Additional information may be found at www.kdoqi.org. 20 Values below the stated reference ranges of AST and ALT can be seen in normal populations. Clinical correlation is suggested. 21 Vitamin D deficiency has been defined by the [place] of [employer] and an Endocrine Society practice guideline as a level of serum 25-OH vitamin D less than 20 ng/mL (1,2). The Endocrine Society went on to further define vitamin D insufficiency as a level between 21 and 29 ng/mL (2). 1. IOM ([place] of [employer]). 2010. Dietary reference intakes for calcium and D. [place]: The National Academies Press. 2. Timothy MF, Augie NC, Apolinar LANDA, et al. Evaluation, treatment, and prevention of vitamin D deficiency: an Endocrine Society clinical practice guideline. JCEM. 2010; 96(7):1911-30. Performed at: RN - [facility] [id number] Base Draw Operator: Kristy Enriquez MD, Phone: [phone] 22 This result was obtained with an ESR method that is not based on the standard Westergren Method. When comparing results obtained from the traditional Westergren ESR and this method it is important to refer to the reference range for each method. Method: Capillary Photometry 23 I26.99 J44.9 SEE NOTE 24 Result: [id number] Two copies of the same mutation ([id number]) identified Interpretation: This individual is homozygous for the MTHFR [id number] variant (two copies). The MTHFR C677T variant [...] common variants in the MTHFR gene, c.655c>T (p.Kxu791Dtoj), referred to as C677T, and c.1286A>C (p.Usw215Epd), referred to as B0707R. Individuals homozygous for C677T (two copies of [...] conditions in the absence of hyperhomocysteinemia. The Y0777V variant is not associated with elevated homocysteine levels unless a C677T variant is also present; however, the clinical significance of heterozygosity for both C677T and B1434A is controversial. Population data suggest that these [...] health care providers to discuss results at [phone] [place] Methodology: DNA analysis of the MTHFR gene was performed by PCR amplification followed by restriction analysis. The diagnostic sensitivity is >99% for both. Molecular-based testing is highly accurate, but as in any laboratory test, rare diagnostic errors may occur. All test results must be combined with clinical information for the most accurate interpretation. This test was developed and its performance characteristics determined by [facility]. It has not been cleared or approved by the Food and Drug Administration. References: Jovany LD, Javon Q. Am J Epidemiol 2000; 151(9):862-877. Elena MM, Pablito JA. Arch Pathol Lab Med 2007; 131(6):872-884. Frosst P et al. Yomaira María Elena 1995; 10(1):111-113. Hickey SE et al. María Elena Med 2013; 15(2):153-156. Viet C et al. Obstet Gynecol 2011; 118(3):730-740. Luis Antonio B et al. Eur J Epidemiol 2013; 28(8):621-647. August Emerson, PhD, FACMG Erika Arreguin, PhD, FACMG Martha Mcnulty MCecyS., PhD, FACMG Luzma Maria, PhD, FACMG Jihan Goddard, PhD, FACMG Sam Atkins, PhD, FACMG Performed at: [place] [address] [place], [place] [id number] Base Draw Operator: Aime Foster MD, Phone: [phone] 12/18/18 1012: Note: previously reported as: Performed at: [address] [id number] Base Draw Operator: Xu Emery MD, Phone: [phone] Amended result called to: [] - 12/18/18 at 1012 No lupus anticoagulant was detected. These results are consistent with specific inhibitors to one or more common pathway factors (X, V, II or fibrinogen). Performed at: [address] [id number] Base Draw Operator: Xu Emery MD, Phone: [phone] 26 Negative: <15 Indeterminate: 15 - 20 Low-Med Positive: >20 - 80 High Positive: >80 27 Negative: <13 Indeterminate: 13 - 20 Low-Med Positive: >20 - 80 High Positive: >80 28 Negative: <12 Indeterminate: 12 - 20 Low-Med Positive: >20 - 80 High Positive: >80 Performed at: [address] [id number] Base Draw Operator: Kristy Enriquez MD, Phone: [phone] 29 Vitamin D deficiency has been defined by the [place] of [employer] and an Endocrine Society practice guideline as a level of serum 25-OH vitamin D less than 20 ng/mL (1,2). The Endocrine Society went on to further define vitamin D insufficiency as a level between 21 and 29 ng/mL (2). 1. IOM ([place] of [employer]). 2010. Dietary reference intakes for calcium and D. [place]: The National Academies Press. 2. Timothy MF, Augie NC, Apolinar LANDA, et al. Evaluation, treatment, and prevention of vitamin D deficiency: an Endocrine Society clinical practice guideline. JCEM. 2010; 96(7):1911-30. Performed at: [address] [id number] Base Draw Operator: Kristy Enriquez MD, Phone: [phone] 30 This result was obtained with an ESR method that is not based on the standard Westergren Method. When comparing results obtained from the traditional Westergren ESR and this method it is important to refer to the reference range for each method. Method: Capillary Photometry 31 Performed at: [address] [id number] Base Draw Operator: Xu Emery MD, Phone: [phone] Procedures Date Code Description Status 12/06/2018 55016 Bronchospasm Provocation Evaluation Multi Spirometric Completed Determinati 12/06/2018 52785 Spirometry Completed Medical Devices Description No Information Available Encounters Type Date Location Provider Dx Diagnosis Office Visit 05/02/2019 [facility] Iris Sun.9 Acute pharyngitis, 2:15p Shahnaz M., COMMERCIAL ASSISTANT unspecified R10.30 Lower abdominal pain, unspecified Office Visit 03/29/2019 2:00p Samy Baldwin MD R94.5 Abnormal results of liver function studies R10.13 Epigastric pain Office Visit 03/29/2019 10:00a Oncology Office Boufal, I26.99 Other pulmonary Paulina, [...] unspecified D64.9 Anemia, unspecified D64.9 Anemia, unspecified Office Visit 11/19/2018 8:00a Pulmonology Mavis Salmeron, J44.9 Chronic obstructive PA pulmonary disease, unspecified I26.99 Other pulmonary embolism without acute cor pulmonale R05 Cough Assessments Date Code Description Provider 05/02/2019 J02.9 Acute pharyngitis, unspecified Harrison-HelmShahnaz, COMMERCIAL ASSISTANT 05/02/2019 R10.30 Lower abdominal pain, unspecified Harrison-Helm, Shahnaz M., COMMERCIAL ASSISTANT 04/02/2019 K85.90 Acute pancreatitis without necrosis Art [...] Cooper, DO acute cor pulmonale 03/30/2019 Z79.01 prison (current) use of BoPaulina david, DO anticoagulants 03/30/2019 E11.9 Type 2 diabetes mellitus without Art Nascimento M.D. complications 03/30/2019 R10.13 Epigastric pain Art Nascimento M.D. 03/30/2019 K21.9 Gastro-esophageal reflux disease Art Nascimento M.D. without esophagitis 03/29/2019 K85.90 Acute pancreatitis without necrosis Art Nascimento M.D. or infection, unspecified 03/29/2019 I26.99 Other pulmonary embolism without BorosaalPaulina, DO acute cor pulmonale 03/29/2019 R94.5 Abnormal results of liver function Samy Clements MD studies 03/29/2019 E11.9 Type 2 diabetes mellitus without Art Nascimento M.D. complications 03/29/2019 R10.13 Epigastric pain Paulina Cooper DO 03/29/2019 R10.13 Epigastric pain Samy Clements MD 03/29/2019 Z79.01 prison (current) use of Art Nascimento M.D. anticoagulants 03/29/2019 R94.5 Abnormal results of liver function Paulina Cooper DO studies 03/28/2019 I26.99 Other pulmonary embolism without BoWinnie davidt, DO acute cor pulmonale 03/28/2019 I26.99 Other pulmonary embolism without Oncology Nurse acute cor pulmonale 03/28/2019 D64.9 Anemia, unspecified BoufalPaulina, DO 03/28/2019 D64.9 Anemia, unspecified Oncology Nurse [...] Paulina, DO 12/29/2018 J44.9 Chronic obstructive pulmonary Walrath, Mavis, PA disease, unspecified 12/29/2018 I26.99 Other pulmonary embolism without Walrath, Mavis, PA acute cor pulmonale 12/14/2018 I26.99 Other pulmonary embolism without Boufal, Paulina, DO acute cor pulmonale 12/14/2018 I26.99 Other pulmonary embolism without Boufal, Pauilna, DO acute cor pulmonale 12/14/2018 J44.9 Chronic obstructive pulmonary Boufal, Paulina, DO disease, unspecified 12/14/2018 J44.9 Chronic obstructive pulmonary Boufal, Paulina, DO disease, unspecified 12/14/2018 D64.9 Anemia, unspecified Boufal, Paulina, DO 12/14/2018 D64.9 Anemia, unspecified Boufal, Paulina, DO 12/06/2018 J44.9 Chronic obstructive pulmonary Jaison Lewis MD disease, unspecified 11/19/2018 J44.9 Chronic obstructive pulmonary Walrath, Mavis, PA disease, unspecified 11/19/2018 I26.99 Other pulmonary embolism without Walrath, Mavis, PA acute cor pulmonale 11/19/2018 R05 Cough Walrath, Mavis, PA Plan of Treatment Future Appointment(s):07/06/2019 10:00 am - Mavis Salmeron PA at [facility]/ 04/2019 - Shahnaz Sun, FNPJ02.9 Acute pharyngitis, unspecifiedComments:Most likely viral, strep test is negative. Warm saltwater gargles, Get lots of rest. Maintain good clear fluid intake to stay well hydrated. Frequent handwashing to prevent spread of germs. Please avoid exposure to tobacco smoke and/or polluted air. Take Tylenol (acetaminophen), Advil(ibuprofen), or alleve(naproxen) as needed for fever or aches, dosage according to package directions. Please follow-up with your primary care provider within 1 week for recheck.R10.30 Lower abdominal pain, unspecifiedComments:I recommend scheduling an appointment with your PCP for further evaluation, it is possible this is ahernia. If the pain returns you can always go to the ED for further evaluation. Functional Status Description No Information Available Mental Status Description No Information Available Referrals Description No Information Available
--- OUTSIDE RECORDS SUMMARY | 2019-06-02 14:45 | XMS REPORT | Summary of Care ---
:1945 Author Organization [facility] Address [address] [place] [address] Care Team Providers Name Role Phone Jan Sumner Primary Care Provider Reason for Referral Diagnostic Radiology (Routine) Status Reason Specialty Diagnoses / Referred By Referred To Procedures Contact Contact Authorized Radiology Diagnoses Adenocarcinoma of head of pancreas Jan Valladares, Procedures CT Abdomen Pelvis with and without Contrast [address] [place] [address] Email: [email or web address] Diagnostic Radiology (Routine) Status Reason Specialty Diagnoses / Referred By Referred To Procedures Contact Contact Authorized Radiology Diagnoses Adenocarcinoma of head of pancreas Jan Valladares, Procedures CT Thorax with Contrast [address] [place] [address] Email: [email or web address] Reason for Visit Diagnostic Radiology (Routine) Status Reason Specialty Diagnoses / Referred By Referred To Procedures Contact Contact Authorized Radiology Diagnoses Adenocarcinoma of head of pancreas Jan Valladares, Procedures CT Abdomen Pelvis with and without Contrast [address] [place] [address] Email: [email or web address] Encounter Details Date Type Department Care Team Description 05/16/[address] Scan 550HAR Adenocarcinoma of head [address] [facility] [place] [id number] Allergies Active Allergy Reactions Severity Noted Date Comments Celecoxib Other (See Comments) 05/04/2019 Ankle swelling Levofloxacin Rash Low 05/04/2019 Turned "red" Nickel Itching Medium 05/04/2019 Fluoxetine Hcl Other (See Comments) 05/04/2019 Irritable documented as of this encounter (statuses as of 05/17/2019) Medications Medication Sig Dispensed Refills Start Date [...] by 0 Active Tablet (ZOCOR) mouth nightly Auspqva-Bsmsdr-Xndahwx Take by mouth 0 Active e (CREON [...] 1 capsule 270 capsule 3 05/12/2019 Active (Lwd-Suvm-Zjnn) 48730 by mouth Three UNIT Oral Capsule times daily with Delayed Release meals Particles (CREON) documented as of this encounter (statuses as of 05/17/2019) Active Problems Problem Noted Date Adenocarcinoma of pancreas 05/12/2019 documented as of this encounter (statuses as of 05/17/2019) Social History Tobacco Use Types Packs/Day Years [...] of this encounter Last Filed Vital Signs Not on filedocumented in this encounter Plan of Treatment Date Type Specialty Care Team Description 05/18/2019 Hospital Encounter Brett Lopez MD [address] [place] [address] [address] [place] [address] 05/24/2019 [facility] Surgery Joyce Finch MD PhD [address] [place] [address] [phone] 05/25/2019 [facility] Surgery Health Maintenance Due Date Last Done Comments [...] Procedure Name Priority Date/Time Associated Diagnosis Comments CT THORAX WITH Routine 05/16/2019 11:02 Adenocarcinoma of head Results for this CONTRAST 15011 AM EST of pancreas procedure are in the results section. CT ABDOMEN PELVIS Routine 05/16/2019 11:02 Adenocarcinoma of head Results for this WITH AND WITHOUT AM EST of pancreas procedure are in CONTRAST [id number] the results section. documented in this encounter Results CT Abdomen Pelvis with and without Contrast (05/16/2019 11:02 AM EST) Specimen Addenda Addendum by Wendy Wick MD on 05/16/2019 9:48 PM The described pancreatic head mass focally abuts the superior mesenteric artery on image 123. No evidence for arterial encasement. This was discussed at [facility] tumor board today 05/16/19. Impressions Performed At IMPRESSION: [facility] 1. Hypoenhancing mass in the pancreatic head/uncinate process as noted above, consistent with known pancreatic adenocarcinoma. Mass abuts the SMV without encasement. No evidence for arterial encasement. 2. Associated upstream pancreatic and biliary ductal dilatation. 3. Left adrenal adenoma. 4. No evidence for distal metastatic disease. 5. 2.3 cm fluid density lesion in the left ovary, worrisome for ovarian cyst. Pelvic ultrasound is suggested to further characterize and for follow-up. 6. Additional chronic findings are noted above. Narrative Performed At INDICATION: New pancreatic cancer. [facility] TECHNIQUE: Multidetector CT images were obtained from the domes of the diaphragm to the iliac crests and from the iliac crests to the greater trochanters with and without intravenous contrast. Oral contrast was administered. Coronal and sagittal images were reconstructed from the axial data. Automated dose lowering techniques and/or adjustment according to patient size were utilized for this exam. COMPARISON: 03/29/2019. FINDINGS: Lungs: Please refer to the CT thorax done at the same time for findings above the diaphragm. Bones: Degenerative changes are noted within the spine. Multifocal posterior disc osteophyte complexes throughout the lumbar spine are seen associated mild spinal canal narrowing. No focal suspicious osseous lesion is seen. Bilateral hip prostheses are seen. The visualized portions appear intact and aligned. Body wall: A small fat containing umbilical hernia is seen. Small fat-containing left inguinal hernia is seen. Vasculature: Atherosclerotic vascular calcifications are noted within the aorta. No aortic aneurysm is seen. There is a replaced right hepatic artery arises from the SMA. 2 right renal arteries are seen. Liver: Unremarkable. Gallbladder: The gall bladder is without radio opaque stone. No gallbladder wall thickening is seen. Biliary Ducts: Diffuse intrahepatic and extrahepatic biliary ductal dilatation to the level of the pancreatic head mass is seen. Spleen: Unremarkable. Pancreas: Hypoenhancing solid mass in the pancreatic head/uncinate process measures 4.0 x 3.0 cm. There is upstream mild pancreatic atrophy and pancreatic ductal dilatation. No evidence for arterial vascular encasement. Pancreatic mass abuts the SMV without evidence for encasement. Adrenal Glands: Right:Unremarkable. Left: 1.6 cm adenoma. Kidneys: Right: No focal renal lesion is seen. No renal or ureteral calculi are seen. No hydronephrosis or hydroureter is seen. Left: No focal renal lesion is seen. No renal or ureteral calculi are seen. Prominent extrarenal pelvis. No hydronephrosis or hydroureter is seen. Bowel: The bowel is nondilated without evidence for bowel obstruction. A moderate amount of stool is noted in the colon. The appendix is visualized and is unremarkable. Peritoneum: There is no intraabdominal or pelvic ascites. No evidence for free air. Lymph nodes: A few prominent [place] hepatic/peripancreatic lymph nodes are seen. No other significant lymphadenopathy. In the pelvis, uterus is only partially imaged due to streak artifact from the hip prostheses. The visualized portions are unremarkable. The right ovary is unremarkable. 2.3 cm fluid density lesion is noted in the left ovary. Bladder is largely obscured by streak artifact from the hip prostheses. Procedure Note Interface, Received Via [employer] - 05/16/2019 12:30 PM EST INDICATION: New pancreatic cancer. TECHNIQUE: Multidetector CT images were obtained from the domes of the diaphragm to the iliac crests and from the iliac crests to the greater trochanters with and without intravenous contrast. Oral contrast was administered. Coronal and sagittal images were reconstructed from the axial data. Automated dose lowering techniques and/or adjustment according to patient size were utilized for this exam. COMPARISON: 03/29/2019. FINDINGS: Lungs: Please refer to the CT thorax done at the same time for findings above the diaphragm. Bones: Degenerative changes are noted within the spine. Multifocal posterior disc osteophyte complexes throughout the lumbar spine are seen associated mild spinal canal narrowing. No focal suspicious osseous lesion is seen. Bilateral hip prostheses are seen. The visualized portions appear intact and aligned. Body wall: A small fat containing umbilical hernia is seen. Small fat- containing left inguinal hernia is seen. Vasculature: Atherosclerotic vascular calcifications are noted within the aorta. No aortic aneurysm is seen. There is a replaced right hepatic artery arises from the SMA. 2 right renal arteries are seen. Liver: Unremarkable. Gallbladder: The gall bladder is without radio opaque stone. No gallbladder wall thickening is seen. Biliary Ducts: Diffuse intrahepatic and extrahepatic biliary ductal dilatation to the level of the pancreatic head mass is seen. Spleen: Unremarkable. Pancreas: Hypoenhancing solid mass in the pancreatic head/uncinate process measures 4.0 x 3.0 cm. There is upstream mild pancreatic atrophy and pancreatic ductal dilatation. No evidence for arterial vascular encasement. Pancreatic mass abuts the SMV without evidence for encasement. Adrenal Glands: Right:Unremarkable. Left: 1.6 cm adenoma. Kidneys: Right: No focal renal lesion is seen. No renal or ureteral calculi are seen. No hydronephrosis or hydroureter is seen. Left: No focal renal lesion is seen. No renal or ureteral calculi are seen. Prominent extrarenal pelvis. No hydronephrosis or hydroureter is seen. Bowel: The bowel is nondilated without evidence for bowel obstruction. A moderate amount of stool is noted in the colon. The appendix is visualized and is unremarkable. Peritoneum: There is no intraabdominal or pelvic ascites. No evidence for free air. Lymph nodes: A few prominent [place] hepatic/peripancreatic lymph nodes are seen. No other significant lymphadenopathy. In the pelvis, uterus is only partially imaged due to streak artifact from the hip prostheses. The visualized portions are unremarkable. The right ovary is unremarkable. 2.3 cm fluid density lesion is noted in the left ovary. Bladder is largely obscured by streak artifact from the hip prostheses. IMPRESSION: 1. Hypoenhancing mass in the pancreatic head/uncinate process as noted above, consistent with known pancreatic adenocarcinoma. Mass abuts the SMV without encasement. No evidence for arterial encasement. 2. Associated upstream pancreatic and biliary ductal dilatation. 3. Left adrenal adenoma. 4. No evidence for distal metastatic disease. 5. 2.3 cm fluid density lesion in the left ovary, worrisome for ovarian cyst. Pelvic ultrasound is suggested to further characterize and for follow-up. 6. Additional chronic findings are noted above. Performing Organization Address City/State/Zipcode Phone Number [facility] [address] [place] [address] CT Thorax with Contrast (05/16/2019 11:02 AM EST) Specimen Impressions Performed At Impression: No evidence of metastasis in the thorax. No acute disease. [facility] Narrative Performed At Indication: New pancreatic cancer. [facility] Technique: Helical CT of thorax is performed after administration of intravenous contrast. Coronal and sagittal reconstructions are acquired. Automated dose lowering technique and/or adjustments accordi ng to patient size were utilized for this examination. Comparison: Prior CTA thorax dated 11/06/2018. Findings: Again demonstrated is enlarged heterogeneous thyroid gland with hypodense nodules and focal calcification. It is unchanged since prior study. No enlarged lymph nodes or mass is seen in the imaged portion of lower neck and axilla. Heart size is normal. Coronary artery calcification is seen. No pericardial effusion is noted. There is atherosclerotic calcification of thoracic aorta. Subcentimeter mediastinal lymph nodes are noted. No hilar lymphadenopathy is seen. Small hiatal hernia is noted. Trachea and mainstem bronchi are patent. 5 mm calcific nodule is seen in the left upper lobe. No noncalcified pulmonary nodules or mass is noted. No airspace disease is seen. No pleural effusion is noted. Degenerative changes are noted in the thoracic spine. For findings below diaphragm, please refer to CT abdomen and pelvis performed at the same time. Procedure Note Interface, Received Via [employer] [facility] - 05/16/2019 2:13 PM EST Indication: New pancreatic cancer. Technique: Helical CT of thorax is performed after administration of intravenous contrast. Coronal and sagittal reconstructions are acquired. Automated dose lowering technique and/or adjustments according to patient size were utilized for this examination. Comparison: Prior CTA thorax dated 11/06/2018. Findings: Again demonstrated is enlarged heterogeneous thyroid gland with hypodense nodules and focal calcification. It is unchanged since prior study. No enlarged lymph nodes or mass is seen in the imaged portion of lower neck and axilla. Heart size is normal. Coronary artery calcification is seen. No pericardial effusion is noted. There is atherosclerotic calcification of thoracic aorta. Subcentimeter mediastinal lymph nodes are noted. No hilar lymphadenopathy is seen. Small hiatal hernia is noted. Trachea and mainstem bronchi are patent. 5 mm calcific nodule is seen in the left upper lobe. No noncalcified pulmonary nodules or mass is noted. No airspace disease is seen. No pleural effusion is noted. Degenerative changes are noted in the thoracic spine. For findings below diaphragm, please refer to CT abdomen and pelvis performed at the same time. Impression: No evidence of metastasis in the thorax. No acute disease. Performing Organization Address City/State/Zipcode Phone Number [facility] [address] [place] [address] documented in this encounter Visit Diagnoses Diagnosis Adenocarcinoma of head of pancreas documented in this encounter Administered Medications Medication Order MAR Action Action Date Dose Rate Site barium (VOLUMEN) 0.1 % Given 05/16/2019 10:05 AM EST 225 mLs suspension 450 mL 450 mL, Oral, 1 TIME IMAGING, Thu05/16/19 at 1015, For 1 dose, Imaging Protocol barium (VOLUMEN) 0.1 % suspension 450 mL Given 05/16/2019 10:05 AM EST 450 mLs 450 mL, Oral, 1 TIME IMAGING, Thu05/16/19 at 1015, For 1 dose, Imaging Protocol iohexol (OMNIPAQUE) 300 MG/ML contrast New Bag 05/16/2019 10:50 AM EST 100 mLs injection 100 mL 100 mL, Intravenous, 1 TIME IMAGING, Thu05/16/19 at 1115, For 1 dose, Imaging Protocol documented in this encounter
--- OUTSIDE RECORDS SUMMARY | 2019-06-02 14:45 | XMS REPORT | Continuity of Care Document ---
:1945 External Reference #:[id number] Author Name Cher Leahy Care Team Providers Name Role Phone Jan Sumner PA - Medical Care Team Information Consumer Banker [phone] Problems Active Problems Provider Date Epigastric pain [...] Boufal, 05/16/2019 2% a day to affected PaulinaDO Gel area Benadryl Allergy 1 cap by [...] Creon take 1 3x daily Jan Valladares [id number] Caps DR devries [address] units MD Yariel Part are all gone Creon 1 cap 3x daily Thuan, [id number] MD Jarvis Caps DR Escalera Ondansetron HCL Take One Tablet By Unknown 4mg Mouth Every 4 Tablets Hours as Needed Cholestyramine Mix 1 Packet In Unknown 4gm Packet Liquid And Drink Two Times A Day History Medications Ventolin HFA take 2 puffs every 6 8gm Jaison Lewis, 11/19/2018 - hours as needed for 05/16/2019 108(90Base) mcg/Act shortness of breath. Aerosol Anoro Ellipta 1 inhalation every 30units Jaison Lewis, 11/19/2018 - day. please teach 05/16/2019 62.5-25mcg/Inh use. Aerosol Immunizations Description No Information Available Vital Signs [...] Facility Test Result H/L Range Note CBC 05/16/2019 [facility] White Blood 7.4 K/uL Normal 3.1-10.7 1 W/Automated [address] Count Diff [place], [place] [id number] [phone] Red Blood Count 3.84 M/uL Low 3.90-5.40 [...] 40.4-72.8 Lymph % 32.7 % Normal 20.0-42.0 [place] % 6.3 % Normal 4.3-13.2 Eo% 6.1 % Normal 0.0-6.6 Bas% 0.5 % Normal 0.0-1.1 Immature Grans 0.4 % Normal 0.0-5.0 NRBC % 0.0 /100WBC < 10/ 100 WBC Neut# 3.97 K/uL Normal 1.8-7.0 Lymph # 2.41 K/uL Normal 1.0-4.0 [place] # 0.46 K/uL Normal 0.3-0.9 Eos # 0.45 K/uL Normal 0.0-0.5 Baso # 0.04 K/uL Normal 0.0-0.1 Immature Grans Absolute 0.03 K/uL NRBC # 0.00 K/uL Comprehensive Metabolic 05/16/2019 [facility] Glucose 180 mg/dL High 74-[address] [place], [place] [id number] [phone] BUN 14 mg/dL Normal 7-18 Creatinine 0.8 mg/dL Normal 0.6-1.3 Glom Filtration Rate, Estimate >60 mL/min >60 If >60 mL/min >60 2 BUN/Creat 17.5 ratio Sodium 137 mmol/L Normal [...] Alkaline Phosphatase 1350 U/L Critical high 45-117 3 Iron-Tibc-%Sat 05/16/2019 [facility] Serum Iron 79 g/dL Normal 50-170 [address], [place] [id number] [phone] Total Iron Binding Capacity 293 g/dL Normal 250-450 Transferrin %Saturation 27 % Normal 12-57 Laboratory test 05/16/2019 [facility] Ferritin 793 ng/mL High 8-252 finding [address], [place] [address] [phone] Vitamin B12 And 05/16/2019 [facility] Vitamin B12 1036 pg/mL High 193-986 Folate [address], [place] [address] [phone] Folic Acid > 20.0 ng/mL High 3.1-17.5 Laboratory test 05/16/2019 [facility] Vitamin D,25-Hydroxy <pending> finding [address], [place] [address] [phone] Carbohydrate Antigen 19-9 <pending> Glycohemoglobin 05/16/2019 [facility] Glycohemoglobin 7.2 % High 4.2-6.3 4 A1c [address] [facility] (A1c) [place], [place] [address] [phone] eAG 160 mg/dL Laboratory test 05/16/2019 [facility] Sedimentation Rate 101 mm/hr High 0-30 5 finding [address] [place] [address] [phone] Magnesium 1.9 mg/dL Normal 1.6-2.6 Bilirubin,Direct 3.1 mg/dL High 0.0-0.2 LDH 241 U/L Normal 84-246 Uric Acid 4.6 mg/dL Normal 2.6-6.0 Reticulocyte 05/16/2019 [facility] Retic 33.6 pg Normal 27.9-37.0 Count,Automated [address] [facility] [place] [place] [address] [phone] Retic % 1.8 % Normal 0.5-1.8 Absolute Retic 70 K/uL Normal 24-84 Immature Retic Fraction 12.3 % Normal 2.9-15.5 Protime 05/16/2019 [facility] Protime 13.2 seconds Normal 12.0-14.4 [address] [place] [address] [phone] Inr 1.0 Normal 0.9-1.1 6 Laboratory test 05/02/2019 [facility] Inhouse Rapid Group A Neg Pos, Neg, Invalid finding Strep Urine Dipstick 05/02/2019 [facility] Inhouse Ua Color Dark Yellow Ua Clarity Clear Clear Ua Leuko 125 High Negative Ua Nitrite Negative Negative Ua Urobilinogen 4 High 0.2 - 1.0 E.U./dL Ua Protein 100 High Negative Ua PH 5.0 Low 6.5-7.5 Ua Blood Negative Negative Ua Specific Drums 1.030 1.010-1.030 Ua Ketones 5 High Negative Ua Bilirubin 2 High Negative Ua Glucose 500 High Negative Urine Culture 05/02/2019 [facility] Urine Culture URETHRAL DORIS 7 [address] [place], [place] [address] [phone] Quantity > 100,000 CFU/mL 8 Laboratory test 03/29/2019 [facility] Anti-Nuclear Negative Negative 9 finding [address] E Antibodies AU/[place] [address] Direct [phone] Actin (Smooth Muscle) Antibody 9 units 0-19 10 Mitochondrial (M2) Antibodies <20.0 units 0.0-20.0 11 Ghohc-6-Caskfjtaxnn,Serum 154 mg/dL 90-200 12 Ceruloplasmin 29.9 mg/dL 19.0-39.0 Celiac Disease 03/29/2019 [facility] Immunoglobulin A 117 mg/dL 64-422 Comp AB Profile [address] [place], [place] [address] [phone] Antigliadin Abs, IgG 1 units 0-19 13 Antigliadin Abs, IgA 2 units 0-19 14 Endomysial IgA Antibody Negative Negative t-Transglutaminase IgA <2 U/mL 0-3 15 t-Transglutaminase IgG <2 U/mL 0-5 16 Laboratory test 03/29/2019 [facility] Ferritin 587 ng/mL High 8-252 finding [address] [place] [address] [phone] Hepatitis 03/29/2019 [facility] Hepatitis A Negative Negative 17 Evaluation [address] [facility] Antibody IgM [place], [place] [address] [phone] HBsAg Screen [Ref Lab] Negative Negative Hepatitis B Core IgM Negative Negative HCV Signal/Cutoff ratio 0.2 s/corat 0.0-0.9 18 Laboratory test 03/29/2019 [facility] Fibrinogen 693 mg/dL High 200-467 finding [address] [place] [address] [phone] Gamma Glutamyl Transpeptidase 1510 U/L Critical high 5-85 19 Amylase 99 U/L Normal 25-115 20 Lipase 2009 U/L Critical high 56-289 21 Laboratory test 03/28/2019 [facility] Ferritin 353 ng/mL High 8-252 22 finding [address] [place] [address] [phone] Iron-Tibc-%Sat 03/28/2019 [facility] Serum Iron 126 g/dL Normal 50-170 [address] [place] [address] [phone] Total Iron Binding Capacity 322 g/dL Normal 250-450 Transferrin %Saturation 39 % Normal 12-57 Comprehensive Metabolic 03/28/2019 [facility] Glucose 190 mg/dL High 74-106 Panel [address] [place] [address] [phone] BUN 16 mg/dL Normal 7-18 Creatinine 0.9 mg/dL Normal 0.6-1.3 Glom Filtration Rate, Estimate >60 mL/min >60 If >60 mL/min >60 23 BUN/Creat 17.7 ratio Sodium 138 mmol/L Normal [...] 12-78 Alkaline Phosphatase 709 U/L High 45-117 CBC W/Automated 03/28/2019 [facility] White Blood 7.5 K/uL Normal 3.1-10.[address] Count [place], [place] [address] [phone] Red Blood Count 3.95 M/uL Normal 3.90-5.40 [...] 40.4-72.8 Lymph % 39.3 % Normal 20.0-42.0 [place] % 6.8 % Normal 4.3-13.2 Eo% 7.2 % High 0.0-6.6 Bas% 0.5 % Normal 0.0-1.1 Immature Grans 0.5 % Normal 0.0-5.0 NRBC % 0.0 /100WBC < 10/ 100 WBC Neut# 3.43 K/uL Normal 1.8-7.0 Lymph # 2.95 K/uL Normal 1.0-4.0 [place] # 0.51 K/uL Normal 0.3-0.9 Eos # 0.54 K/uL High 0.0-0.5 Baso # 0.04 K/uL Normal 0.0-0.1 Immature Grans Absolute 0.04 K/uL NRBC # 0.00 K/uL Iron-Tibc-%Sat 01/10/2019 [facility] Serum Iron 74 g/dL Normal 50-170 24 [address] [place] [address] [phone] Total Iron Binding Capacity 298 g/dL Normal 250-450 Transferrin %Saturation 25 % Normal 12-57 Laboratory test 01/10/2019 [facility] Ferritin 102 ng/mL Normal 8-252 finding [address] [place] [address] [phone] Vitamin B12 And 01/10/2019 [facility] Vitamin B12 358 pg/mL Normal 193-986 Folate [address] [place] [address] [phone] Folic Acid 14.5 ng/mL Normal 3.1-17.5 Laboratory test 01/10/2019 [facility] Vitamin 42.9 30.0-100.0 25 finding [address] D,25-Hydroxy ng/[place] [address] [phone] Sedimentation Rate 15 mm/hr Normal 2-55 26 CBC W/Automated 01/10/2019 [facility] White Blood 7.5 K/uL Normal 3.1-10.7 Diff [address] [place] [address] [phone] Red Blood Count 3.78 M/uL Low 3.90-5.40 [...] 40.4-72.8 Lymph % 38.7 % Normal 20.0-42.0 [place] % 5.9 % Normal 4.3-13.2 Eo% 5.5 % Normal 0.0-6.6 Bas% 0.7 % Normal 0.0-1.1 Immature Grans 0.4 % Normal 0.0-5.0 NRBC % 0.0 /100WBC < 10/ 100 WBC Neut# 3.65 K/uL Normal 1.8-7.0 Lymph # 2.89 K/uL Normal 1.0-4.0 [place] # 0.44 K/uL Normal 0.3-0.9 Eos # 0.41 K/uL Normal 0.0-0.5 Baso # 0.05 K/uL Normal 0.0-0.1 Immature Grans Absolute 0.03 K/uL NRBC # 0.00 K/uL Comprehensive Metabolic 01/10/2019 [facility] Glucose 129 mg/dL High 74-[address] [place] [address] [phone] BUN 21 mg/dL High 7-18 Creatinine 0.9 mg/dL Normal 0.6-1.3 Glom Filtration Rate, Estimate >60 mL/min >60 If >60 mL/min >60 27 BUN/Creat 23.3 ratio Sodium 139 mmol/L Normal [...] Normal 0.2-1.0 Sgot/Ast 11 U/L Low 15-37 28 SGPT/Alt 21 U/L Normal 12-78 Alkaline Phosphatase 74 U/L Normal 45-117 Laboratory 12/14/2018 [facility] Vitamin 42.2 30.0-100.0 29, 30 test finding [address] D,25-Hydroxy ng/[place] [address] [phone] Sedimentation Rate 2 mm/hr Normal 2-55 31 DRVVT Mix 50.0 sec High 0.0-47.0 32 DRVVT Confirm 1.1 ratio 0.8-1.2 Vitamin B12 And 12/14/2018 [facility] Vitamin B12 517 pg/mL Normal 193-986 Folate [address] [place] [address] [phone] Folic Acid 9.9 ng/mL Normal 3.1-17.5 Laboratory test 12/14/2018 [facility] Ferritin 114 ng/mL Normal 8-252 finding [address] [place] [address] [phone] Iron-Tibc-%Sat 12/14/2018 [facility] Serum Iron 79 g/dL Normal 50-170 [address] [place] [address] [phone] Total Iron Binding Capacity 291 g/dL Normal 250-450 Transferrin %Saturation 27 % Normal 12-57 Anticardiolipin AB 12/14/2018 [facility] Anticardiolipin < 9 0-14 33 Iga/Igg/Igm [address] [facility] Igg GPLU/[place] [address] [phone] Anticardiolipin Igm, Quant 11 MPLU/mL 0-12 34 Anticardiolipin Iga < 9 APLU/mL 0-11 35 Lupus Anticoagulant Reflex 12/14/2018 [facility] PTT-LA 42.4 sec 0.0-51.9 [address] [place] [address] [phone] DRVVT 60.8 sec High 0.0-47.0 Note: Comment: . 36 Methylenetetrahydrofolate 12/14/2018 [facility] MTHFR,Dna (SEE [address] Analysis NOTE) [place] [address] [phone] 1 C25.9 E61.1 E53.9 D68.9 2 Note: Persistent reduction for 3 months or more in an eGFR <60 mL/min/1.73 m2 defines CKD. Patients with eGFR values >/=60 mL/min/1.73 m2 may also have CKD if evidence of persistent proteinuria is present. The original MDRD equation for estimated GFR is not valid for patients less than 18 years of age. Additional information may be found at www.kdoqi.org. 3 Result confirmed by repeat analysis. 4 Elevated levels of HbA1c suggest the need for more aggressive treatment of glycemia. The [place] [employer] recommends that a primary goal of therapy should be a HbA1c of <7% and that physicians should re-evaluate the treatment regimen in patients with HbA1c values consistently >8%. 5 Method: Sediplast Modified Westergren 6 THERAPEUTIC INR RANGE: 2.0 - 3.0 DVT, Pulmonary embolus, prophylaxis against venous thrombosis or systemic embolization in high risk patients. 2.5 - 3.5 Mechanical heart valves 7 R10.30 8 > 100,000 CFU/mL 9 NO DX R10.10 I26.99 R10.9, R94.5 10 Negative 0 - 19 Weak positive 20 - 30 Moderate to strong positive >30 Actin Antibodies are found in 52-85% of patients with autoimmune hepatitis or chronic active hepatitis and in 22% of patients with primary biliary cirrhosis. 11 Negative 0.0 - 20.0 Equivocal 20.1 - 24.9 Positive >24.9 Mitochondrial (M2) Antibodies are found in 90-96% of patients with primary biliary cirrhosis. 12 Effective April 25, 2019 Kevhp-1-Pecxmdlnjzs, Serum reference interval will be changing to: [...] - 187 101 - 187 Performed at: RN - [facility] [address] [id number] Enrollment Nurse: Kristy Enriquez MD, Phone: [phone] 13 Negative 0 - 19 Weak Positive 20 - 30 Moderate to Strong Positive >30 14 Negative 0 - 19 Weak Positive 20 - 30 Moderate to Strong Positive >30 15 Negative 0 - 3 Weak Positive 4 - 10 Positive >10 Tissue Transglutaminase (tTG) has been identified as the endomysial antigen. Studies have demonstr- ated that endomysial IgA antibodies have over 99% specificity for gluten sensitive enteropathy. 16 Negative 0 - 5 Weak Positive 6 - 9 Positive >9 17 NO DX R10.10 I26.99 R10.9 NO DX R10.10 I26.99 R10.9, R94.5 NO DX R10.10 I26.99 R10.9, R94.5 18 INFCE Result Units: s/co ratio Negative: < 0.8 Indeterminate: 0.8 - 0.9 Positive: > 0.9 The CDC recommends that a positive HCV antibody result be followed up with a HCV Nucleic Acid Amplification test (385665). Performed at: [address] [id number] Enrollment Nurse: Kristy Enriquez MD, Phone: [phone] 19 [place]ED L[place]ASE[place] [address]/29/19 by LAB.[facility] 20 CALLED L[place] [address]/29/19 by [facility] 21 [place]ED [place] [address]/29/19 by [facility] 22 I26.99,D64.9,E56.9 23 Note: Persistent reduction for 3 months or more in an eGFR <60 mL/min/1.73 m2 defines CKD. Patients with eGFR values >/=60 mL/min/1.73 m2 may also have CKD if evidence of persistent proteinuria is present. The original MDRD equation for estimated GFR is not valid for patients less than 18 years of age. Additional information may be found at www.kdoqi.org. 24 I26.99 J44.9 D64.9 25 Vitamin D deficiency has been defined by the Snyder of Medicine and an Endocrine Society practice guideline as a level of serum 25-OH vitamin D less than 20 ng/mL (1,2). The Endocrine Society went on to further define vitamin D insufficiency as a level between 21 and 29 ng/mL (2). 1. IOM (Snyder of Medicine). 2010. Dietary reference intakes for calcium and D. [place]: The National Academies Press. 2. Timothy MF, Augie NC, Apolinar LANDA, et al. Evaluation, treatment, and prevention of vitamin D deficiency: an Endocrine Society clinical practice guideline. JCEM. 2010; 96(7):1911-30. Performed at: [address] [id number] Enrollment Nurse: Kristy Enriquez MD, Phone: [phone] 26 This result was obtained with an ESR method that is not based on the standard Westergren Method. When comparing results obtained from the traditional Westergren ESR and this method it is important to refer to the reference range for each method. Method: Capillary Photometry 27 Note: Persistent reduction for 3 months or more in an eGFR <60 mL/min/1.73 m2 defines CKD. Patients with eGFR values >/=60 mL/min/1.73 m2 may also have CKD if evidence of persistent proteinuria is present. The original MDRD equation for estimated GFR is not valid for patients less than 18 years of age. Additional information may be found at www.kdoqi.org. 28 Values below the stated reference ranges of AST and ALT can be seen in normal populations. Clinical correlation is suggested. 29 I26.99 J44.9 SEE NOTE 30 Vitamin D deficiency has been defined by the [place] of Medicine and an Endocrine Society practice guideline as a level of serum 25-OH vitamin D less than 20 ng/mL (1,2). The Endocrine Society went on to further define vitamin D insufficiency as a level between 21 and 29 ng/mL (2). 1. IOM ([place] of Medicine). 2010. Dietary reference intakes for calcium and D. [place]: The National Academies Press. 2. Timothy MF, Augie [place], [place]-S[place] LANDA, et al. Evaluation, treatment, and prevention of vitamin D deficiency: an Endocrine Society clinical practice guideline. JCEM. 2010; 96(7):1911-30. Performed at: - [facility] [id number] Enrollment Nurse: Kristy Enriquez MD, Phone: [phone] 31 This result was obtained with an ESR method that is not based on the standard Westergren Method. When comparing results obtained from the traditional Westergren ESR and this method it is important to refer to the reference range for each method. Method: Capillary Photometry 32 Performed at: - [facility] [id number] Enrollment Nurse: Xu Emery MD, Phone: [phone] 33 Negative: <15 Indeterminate: 15 - 20 Low-Med Positive: >20 - 80 High Positive: >80 34 Negative: <13 Indeterminate: 13 - 20 Low-Med Positive: >20 - 80 High Positive: >80 35 Negative: <12 Indeterminate: 12 - 20 Low-Med Positive: >20 - 80 High Positive: >80 Performed at: [address] [id number] Enrollment Nurse: Kristy Enriquez MD, Phone: [phone] 12/18/18 1012: Note: previously reported as: Performed at: [address] [id number] Enrollment Nurse: Xu Emery MD, Phone: [phone] Amended result called to: [] - 12/18/18 at 1012 No lupus anticoagulant was detected. These results are consistent with specific inhibitors to one or more common pathway factors (X, V, II or fibrinogen). Performed at: [address] [id number] Enrollment Nurse: Xu Emery MD, Phone: [phone] Result: [id number] Two copies of the same mutation (J3248H/X1115T) identified Interpretation: This individual is homozygous for the MTHFR F3507T variant (two copies). The MTHFR C677T variant [...] common variants in the MTHFR gene, c.655c>T (p.Gpi000Hwbg), referred to as C677T, and c.1286A>C (p.Git184Zkj), referred to as E2000R. Individuals homozygous for C677T (two copies of [...] conditions in the absence of hyperhomocysteinemia. The H6104P variant is not associated with elevated homocysteine levels unless a C677T variant is also present; however, the clinical significance of heterozygosity for both C677T and J1578B is controversial. Population data suggest that these [...] health care providers to discuss results at [phone]. Methodology: DNA analysis of the MTHFR gene was performed by PCR amplification followed by restriction analysis. The diagnostic sensitivity is >99% for both. Molecular-based testing is highly accurate, but as in any laboratory test, rare diagnostic errors may occur. All test results must be combined with clinical information for the most accurate interpretation. This test was developed and its performance characteristics determined by [facility]. It has not been cleared or approved by the Food and Drug Administration. References: Verao LD, Alejandro Q. Am J Epidemiol 2000; 151(9):862-877. Elena MM, Pablito JA. Arch Pathol Lab Med 2007; 131(6):872-884. Frosst P et al. Yomaira María Elena 1995; 10(1):111-113. Bipinkey SE et al. María Elena Med 2013; 15(2):153-156. Handley C et al. Obstet Gynecol 2011; 118(3):730-740. Luis Antonio B et al. Eur J Epidemiol 2013; 28(8):621-647. August Emerson, PhD, FACMG Erika Arreguin, PhD, FACMG Martha Mcnulty MCecyS., PhD, FACMG Luzma Maria, PhD, FACMG Jihan Goddard, PhD, FACMG Sam Atkins, PhD, FACMG Performed at: [facility] [address] [facility], [facility], [place] [id number] Enrollment Nurse: Aime Foster MD, Phone: [phone] Procedures Date Code Description Status 12/06/2018 53394 Bronchospasm Provocation Evaluation Multi Spirometric Completed Determinati 12/06/2018 52728 Spirometry Completed Medical Devices Description No Information Available Encounters Type Date Location Provider Dx Diagnosis Office Visit 05/02/2019 [facility], J02.9 Acute pharyngitis, 2:15p Shahnaz M., OR RN unspecified R10.30 Lower abdominal pain, unspecified Office [...] Description Provider 05/02/2019 J02.9 Acute pharyngitis, unspecified Shahnaz Sun, OR RN 05/02/2019 R10.30 Lower abdominal pain, unspecified Harrison-Shahnaz Leyva, OR RN 04/02/2019 K85.90 Acute pancreatitis without necrosis Art [...] esophagitis 03/30/2019 I26.99 Other pulmonary embolism without BoWinnie davidt, DO acute cor pulmonale 03/30/2019 Z79.01 cheese wrapper (current) use of BorosaalPaulina, DO anticoagulants 03/30/2019 E11.9 Type 2 diabetes mellitus without Art Nascimento M.D. complications 03/30/2019 R10.13 Epigastric pain Art Nascimento M.D. 03/30/2019 K21.9 Gastro-esophageal reflux disease Art Nascimento M.D. without esophagitis 03/29/2019 K85.90 Acute pancreatitis without necrosis Art Nascimento M.D. or infection, unspecified 03/29/2019 I26.99 Other pulmonary embolism without BorosaalWinniet, DO acute cor pulmonale 03/29/2019 R94.5 Abnormal results of liver function Samy Clements MD studies 03/29/2019 E11.9 Type 2 diabetes mellitus without Art Nascimento M.D. complications 03/29/2019 R10.13 Epigastric pain Paulina Cooper, DO 03/29/2019 R10.13 Epigastric pain Samy Clements MD 03/29/2019 Z79.01 cheese wrapper (current) use of Art Nascimento M.D. anticoagulants 03/29/2019 R94.5 Abnormal results of liver function Boufal, Paulina, DO studies 03/28/2019 I26.99 Other pulmonary embolism [...] disease, unspecified 11/19/2018 J44.9 Chronic obstructive pulmonary Mavis Salmeron PA disease, unspecified 11/19/2018 I26.99 Other pulmonary embolism without Mavis Salmeron PA acute cor pulmonale 11/19/2018 R05 Cough Mavis Salmeron PA Plan of Treatment Future Appointment(s):07/06/2019 10:00 am - Mavis Salmeron PA at Pulmonology Functional Status Description No Information Available Mental Status Description No Information Available Referrals Description No Information Available
--- OUTSIDE RECORDS SUMMARY | 2019-06-02 14:45 | XMS REPORT | Continuity of Care Document ---
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 [phone] Problems Active Problems Provider Date Epigastric pain [...] Result H/L Range Note Urine Culture 05/02/2019 [facility] Urine Culture URETHRAL DORIS [address] [place] [address] [phone] Quantity > 100,000 CFU/mL 2 Urine Dipstick 05/02/2019 [facility] Inhouse Ua Color Dark Yellow Ua Clarity Clear Clear Ua Leuko 125 High Negative Ua Nitrite Negative Negative Ua Urobilinogen 4 High 0.2 - 1.0 E.U./dL Ua Protein 100 High Negative Ua PH 5.0 Low 6.5-7.5 Ua Blood Negative Negative Ua Specific [place] 1.030 1.010-1.030 Ua Ketones 5 High Negative Ua Bilirubin 2 High Negative Ua Glucose 500 High Negative Laboratory test 05/02/2019 [facility] Inhouse Rapid Group A Neg Pos, Neg, finding Strep Invalid Laboratory test 03/29/2019 [facility] Anti-Nuclear Negative Negative 3 finding [address] [place] Antibodies AU/[place] [address] Direct [phone] Actin (Smooth Muscle) Antibody 9 units 0-19 4 Mitochondrial (M2) Antibodies <20.0 units 0.0-20.0 5 Nxoyl-4-Pckiiwshzoa,Serum 154 mg/dL 90-200 6 Ceruloplasmin 29.9 mg/dL 19.0-39.0 Celiac Disease 03/29/2019 [facility] Immunoglobulin A 117 mg/dL 64-422 Comp AB Profile [address] [place] [address] [phone] Antigliadin Abs, IgG 1 units 0-19 7 Antigliadin Abs, IgA 2 units 0-19 8 Endomysial IgA Antibody Negative Negative t-Transglutaminase IgA <2 U/mL 0-3 9 t-Transglutaminase IgG <2 U/mL 0-5 10 Laboratory test 03/29/2019 [facility] Ferritin 587 ng/mL High 8-252 finding [address] [place] [address] [phone] Hepatitis 03/29/2019 [facility] Hepatitis A Negative Negative 11 Evaluation 134 [facility] Antibody IgM [place], [place] [id number] [phone] HBsAg Screen [Ref Lab] Negative Negative Hepatitis B Core IgM Negative Negative HCV Signal/Cutoff ratio 0.2 s/corat 0.0-0.9 12 Laboratory test 03/29/2019 [facility] Fibrinogen 693 mg/dL High 200-467 finding [address] [place] [address] [phone] Gamma Glutamyl Transpeptidase 1510 U/L Critical high 5-85 13 Amylase 99 U/L Normal 25-115 14 Lipase 2009 U/L Critical high 56-289 15 Laboratory test 03/28/2019 [facility] Ferritin 353 ng/mL High 8-252 16 finding [address] [place] [address] [phone] Iron-Tibc-%Sat 03/28/2019 [facility] Serum Iron 126 g/dL Normal 50-170 [address] [place] [address] [phone] Total Iron Binding Capacity 322 g/dL Normal 250-450 Transferrin %Saturation 39 % Normal 12-57 Comprehensive Metabolic 03/28/2019 [facility] Glucose 190 mg/dL High 74-[address] [place] [address] [phone] BUN 16 mg/dL Normal 7-18 Creatinine 0.9 [...] 709 U/L High 45-117 CBC W/Automated 03/28/2019 [facility] White Blood 7.5 K/uL Normal 3.1-10.[address] [place] [address] [phone] Red Blood Count 3.95 M/uL Normal 3.90-5.40 [...] 40.4-72.8 Lymph % 39.3 % Normal 20.0-42.0 [place] % 6.8 % Normal 4.3-13.2 Eo% 7.2 % High 0.0-6.6 Bas% 0.5 % Normal 0.0-1.1 Immature Grans 0.5 % Normal 0.0-5.0 NRBC % 0.0 /100WBC < 10/ 100 WBC Neut# 3.43 K/uL Normal 1.8-7.0 Lymph # 2.95 K/uL Normal 1.0-4.0 [place] # 0.51 K/uL Normal 0.3-0.9 Eos # 0.54 K/uL High 0.0-0.5 Baso # 0.04 K/uL Normal 0.0-0.1 Immature Grans Absolute 0.04 K/uL NRBC # 0.00 K/uL Iron-Tibc-%Sat 01/10/2019 [facility] Serum Iron 74 g/dL Normal 50-170 18 [address] [place] [address] [phone] Total Iron Binding Capacity 298 g/dL Normal 250-450 Transferrin %Saturation 25 % Normal 12-57 Laboratory test 01/10/2019 [facility] Ferritin 102 ng/mL Normal 8-252 finding [address] [place], [place] [address] [phone] Vitamin B12 And 01/10/2019 [facility] Vitamin B12 358 pg/mL Normal 193-986 Folate [address] [place], [place] [address] [phone] Folic Acid 14.5 ng/mL Normal 3.1-17.5 Laboratory test 01/10/2019 [facility] Vitamin 42.9 30.0-100.0 19 finding [address] D,25-Hydroxy ng/[place] [address] [phone] Sedimentation Rate 15 mm/hr Normal 2-55 20 CBC W/Automated 01/10/2019 [facility] White Blood 7.5 K/uL Normal 3.1-10.[address] [place] [address] [phone] Red Blood Count 3.78 M/uL Low 3.90-5.40 [...] 40.4-72.8 Lymph % 38.7 % Normal 20.0-42.0 [place] % 5.9 % Normal 4.3-13.2 Eo% 5.5 % Normal 0.0-6.6 Bas% 0.7 % Normal 0.0-1.1 Immature Grans 0.4 % Normal 0.0-5.0 NRBC % 0.0 /100WBC < 10/ 100 WBC Neut# 3.65 K/uL Normal 1.8-7.0 Lymph # 2.89 K/uL Normal 1.0-4.0 [place] # 0.44 K/uL Normal 0.3-0.9 Eos # 0.41 K/uL Normal 0.0-0.5 Baso # 0.05 K/uL Normal 0.0-0.1 Immature Grans Absolute 0.03 K/uL NRBC # 0.00 K/uL Comprehensive Metabolic 01/10/2019 [facility] Glucose 129 mg/dL High 74-106 Panel [address] [place], [place] [address] [phone] BUN 21 mg/dL High 7-18 Creatinine 0.9 mg/dL Normal 0.6-1.3 Glom Filtration Rate, Estimate >60 mL/min >60 If >60 mL/min >60 21 BUN/Creat 23.3 ratio Sodium 139 mmol/L Normal [...] Normal 0.2-1.0 Sgot/Ast 11 U/L Low 15-37 22 SGPT/Alt 21 U/L Normal 12-78 Alkaline Phosphatase 74 U/L Normal 45-117 Laboratory 12/14/2018 [facility] Vitamin 42.2 30.0-100.0 23, 24 test finding 134 [facility] D,25-Hydroxy ng/mL [place], [place] [address] [phone] Sedimentation Rate 2 mm/hr Normal 2-55 25 DRVVT Mix 50.0 sec High 0.0-47.0 26 DRVVT Confirm 1.1 ratio 0.8-1.2 Vitamin B12 And 12/14/2018 [facility] Vitamin B12 517 pg/mL Normal 193-986 Folate [address] [place] [address] [phone] Folic Acid 9.9 ng/mL Normal 3.1-17.5 Laboratory test 12/14/2018 [facility] Ferritin 114 ng/mL Normal 8-252 finding [address] [place] [address] [phone] Iron-Tibc-%Sat 12/14/2018 [facility] Serum Iron 79 g/dL Normal 50-170 [address] [place], [place] [address] [phone] Total Iron Binding Capacity 291 g/dL Normal 250-450 Transferrin %Saturation 27 % Normal 12-57 Anticardiolipin AB 12/14/2018 [facility] Anticardiolipin < 9 0-14 27 Iga/Igg/Igm [address] [facility] Igg GPLU/[place] [address] [phone] Anticardiolipin Igm, Quant 11 MPLU/mL 0-12 28 Anticardiolipin Iga < 9 APLU/mL 0-11 29 Lupus Anticoagulant Reflex 12/14/2018 [facility] PTT-LA 42.4 sec 0.0-51.9 [address] [place] [address] [phone] DRVVT 60.8 sec High 0.0-47.0 Note: Comment: . 30 Methylenetetrahydrofolate 12/14/2018 [facility] MTHFR,Dna (SEE [address] Analysis NOTE) [place] [address] [phone] Blood monocytes automated 11/10/2018 N2N/CCD Import Blood 0.48 0.3- count (number/volume) monocytes 0.9 automated count (number/volum e) Automated blood eosinophil 11/10/2018 N2N/CCD Import Automated 1.20 High 0.0- count blood 0.5 eosinophil count Automated blood basophil 11/10/2018 N2N/CCD Import Automated 0.03 0.0- count (number/volume) blood 0.1 basophil count (number/volum e) Automated blood immature 11/10/2018 N2N/CCD Import Automated 0.03 granulocyte count (number blood immature granulocyte count (number/volum e) Automated blood nucleated 11/10/2018 N2N/CCD Import Automated 0.00 erythrocyte count (count blood nucleated erythrocyte count (count/volume ) Serum or plasma glucose 11/10/2018 N2N/CCD Import Serum or 101 74-1 measurement (mass/volume) plasma 06 glucose measurement (mass/volume) Serum or plasma urea 11/10/2018 N2N/CCD Import Serum or 20 High 7-18 nitrogen measurement plasma urea (mass/vo nitrogen measurement (mass/volume) Serum or plasma creatinine 11/10/2018 N2N/CCD Import Serum or 0.9 0.6- measurement (mass/volum plasma 1.3 creatinine measurement (mass/volume) Estimated glomerular 11/10/2018 N2N/CCD Import Estimated >60 >60 filtration rate (GFR) glomerular non-Afr filtration rate (GFR) non- GFR/Bsa pred.black SerPl 11/10/2018 N2N/CCD Import GFR/Bsa >60 >60 MDRD-ArVRat pred.black SerPl MDRD-ArVRat Serum or plasma urea 11/10/2018 N2N/CCD Import Serum or 22.2 nitrogen/creatinine mass plasma urea rati nitrogen/crea tinine mass ratio Sodium SerPl-sCnc 11/10/2018 N2N/CCD Import Sodium 140 136- SerPl-sCnc 145 Serum or plasma potassium 11/10/2018 N2N/CCD Import Serum or 3.9 3.5- measurement plasma 5.1 potassium measurement Serum or plasma chloride 11/10/2018 N2N/CCD Import Serum or 106 98-1 measurement plasma 07 chloride measurement Co2 SerPl-sCnc 11/10/2018 N2N/CCD Import Co2 27 21-3 SerPl-sCnc 2 Serum or plasma anion gap 11/10/2018 N2N/CCD Import Serum or 7 Low 8-16 plasma anion gap Serum or plasma calcium 11/10/2018 N2N/CCD Import Serum or 8.4 Low 8.5- measurement (mass/volume) plasma 10.1 calcium measurement (mass/volume) Capillary blood glucose 11/10/2018 N2N/CCD Import Capillary 122 High 70- 1 measurement by glucometer blood glucose 10 measurement by glucometer (mass/volume) Automated leukocyte count 11/10/2018 N2N/CCD Import Automated 6.9 3.1- (number/volume) leukocyte 10.7 count (number/volum e) Blood erythrocytes 11/10/2018 N2N/CCD Import Blood 3.68 Low 3.90 automated count erythrocytes -5.4 (number/volume) automated 0 count (number/volum e) Blood hemoglobin 11/10/2018 N2N/CCD Import Blood 11.6 11.6 measurement (mass/volume) hemoglobin -15. measurement 8 (mass/volume) Hct VFr Bld Auto 11/10/2018 N2N/CCD Import Hct VFr Bld 36.1 36.0 Auto -46. 1 Automated erythrocyte mean 11/10/2018 N2N/CCD Import Automated 98.1 80.9 corpuscular volume (MCV erythrocyte -99. mean 0 corpuscular volume (MCV) measurement Automated erythrocyte mean 11/10/2018 N2N/CCD Import Automated 31.5 25.9 corpuscular hemoglobin erythrocyte -32. mean 7 corpuscular hemoglobin (mass per erythrocyte) Automated erythrocyte mean 11/10/2018 N2N/CCD Import Automated 32.1 30.8 corpuscular hemoglobin erythrocyte -34. mean 3 corpuscular hemoglobin concentration measurement (mass/volume) Automated blood platelet 11/10/2018 N2N/CCD Import Automated 245 155- count (count/volume) blood 360 platelet count (count/volume ) Automated erythrocyte 11/10/2018 N2N/CCD Import Automated 50.6 High 36-4 distribution width erythrocyte 7 distribution width Automated erythrocyte 11/10/2018 N2N/CCD Import Automated 14.0 11.7 distribution width ratio erythrocyte -14. distribution 4 width ratio Automated blood platelet 11/10/2018 N2N/CCD Import Automated 10.9 8.9- mean volume measurement blood 12.4 platelet mean volume measurement Automated blood 11/10/2018 N2N/CCD Import Automated 41.3 40.4 neutrophils/100 leukocytes blood -72. neutrophils/1 8 00 leukocytes Automated blood 11/10/2018 N2N/CCD Import Automated 33.7 20.0 lymphocytes/100 leukocytes blood -42. lymphocytes/1 0 00 leukocytes Automated monocyte % 11/10/2018 N2N/CCD Import Automated 6.9 4.3- monocyte % 13.2 Automated eosinophil % 11/10/2018 N2N/CCD Import Automated 17.3 High 0.0 - eosinophil % 6.6 Automated basophil % 11/10/2018 N2N/CCD Import Automated 0.4 0.0- basophil % 1.1 Automated blood immature 11/10/2018 N2N/CCD Import Automated 0.4 0.0- granulocyte count as perc blood 5.0 immature granulocyte count as percentage of total leukocytes Automated blood lymphocyte 11/10/2018 N2N/CCD Import Automated 2.33 1.0 - count (number/volume) blood 4.0 lymphocyte count (number/volum e) Absolute neutrophil count 11/10/2018 N2N/CCD Import Absolute 2.85 1.8- neutrophil 7.0 count Automated blood nucleated 11/10/2018 N2N/CCD Import Automated 0.0 < erythrocyte count as per blood 10/ nucleated 100 erythrocyte WBC count as percentage of total leukocytes Unloinc 11/08/2018 N2N/CCD Import Unloinc Ambulatin g Heart rate by oximetry 11/08/2018 N2N/CCD Import Heart rate by 116 oximetry Determination of inhaled 11/08/2018 N2N/CCD Import Determination 21 21- 1 oxygen concentration (vol of inhaled 00 oxygen concentration (volume fraction) Arterial blood oxygen 11/08/2018 N2N/CCD Import Arterial 92 Low 93-9 saturation measurement by blood oxygen 8 pu saturation measurement by pulse oximetry HgbA1c % 11/07/2018 N2N/CCD Import HgbA1c % 6.0 4.2- 6.3 Blood estimated average 11/07/2018 N2N/CCD Import Blood 126 glucose determination by e estimated average glucose determination by estimation from glycated hemoglobin (mass/volume) 1 R10.30 2 > 100,000 CFU/mL 3 [...] biliary cirrhosis. 6 Effective April 25, 2019 Ksoaf-7-Edryflehptm, Serum reference interval will be changing to: [...] - 187 101 - 187 Performed at: [facility] [address] [id number] Supervisor Metal Fabricating: Kristy Enriquez MD, Phone: [phone] Negative 0 - 19 Weak Positive [...] with a HCV Nucleic Acid Amplification test (334856). Performed at: [address] [id number] Supervisor Metal Fabricating: Kristy Enriquez MD, Phone: [phone] CALLED LIPASE, GGT TO MAGNUS Healy AT 1446 03/29/19 by [email or web address] 14 CALLED [...] at [email or web address]. 18 I26.99 J44.9 D64.9 19 Vitamin D deficiency has been defined by the Riley of [employer] and an Endocrine Society practice guideline as a level of serum 25-OH vitamin D less than 20 ng/mL (1,2). The Endocrine Society went on to further define vitamin D insufficiency as a level between 21 and 29 ng/mL (2). 1. IOM ([employer] of Medicine). 2010. Dietary reference intakes for calcium and D. [place]: The National Academies Press. 2. Timothy MF, Augie NC, Apolinar LANDA, et al. Evaluation, treatment, and prevention of vitamin D deficiency: an Endocrine Society clinical practice guideline. JCEM. 2010; 96(7):1911-30. Performed at: RN - [facility] [address] [id number] Supervisor Metal Fabricating: Kristy Enriquez MD, Phone: [phone] 20 This result was obtained with an ESR method that is not based on the standard Westergren Method. When comparing results obtained from the traditional Westergren ESR and this method it is important to refer to the reference range for each method. Method: Capillary Photometry 21 Note: Persistent reduction for 3 months or more in an eGFR <60 mL/min/1.73 m2 defines CKD. Patients with eGFR values >/=60 mL/min/1.73 m2 may also have CKD if evidence of persistent proteinuria is present. The original MDRD equation for estimated GFR is not valid for patients less than 18 years of age. Additional information may be found at www.[email or web address]. 22 Values below the stated reference ranges of AST and ALT can be seen in normal populations. Clinical correlation is suggested. 23 I26.99 J44.9 SEE NOTE 24 Vitamin D deficiency has been defined by the [employer] of [employer] and an Endocrine Society practice guideline as a level of serum 25-OH vitamin D less than 20 ng/mL (1,2). The Endocrine Society went on to further define vitamin D insufficiency as a level between 21 and 29 ng/mL (2). 1. IOM ([employer] of Medicine). 2010. Dietary reference intakes for calcium and D. [place]: The National Academies Press. 2. Timothy MF, Augie NC, Apolinar LANDA, et al. Evaluation, treatment, and prevention of vitamin D deficiency: an Endocrine Society clinical practice guideline. JCEM. 2010; 96(7):1911-30. Performed at: [address] [id number] Supervisor Metal Fabricating: Kristy Enriquez MD, Phone: [phone] 25 This result was obtained with an ESR method that is not based on the standard Westergren Method. When comparing results obtained from the traditional Westergren ESR and this method it is important to refer to the reference range for each method. Method: Capillary Photometry 26 Performed at: [facility] [address] [id number] Supervisor Metal Fabricating: Xu Emery MD, Phone: [phone] 27 Negative: <15 Indeterminate: 15 - 20 Low-Med Positive: >20 - 80 High Positive: >80 28 Negative: <13 Indeterminate: 13 - 20 Low-Med Positive: >20 - 80 High Positive: >80 29 Negative: <12 Indeterminate: 12 - 20 Low-Med Positive: >20 - 80 High Positive: >80 Performed at: [address] [id number] Supervisor Metal Fabricating: Kristy Enriquez MD, Phone: [phone] 30 12/18/18 1012: Note: previously reported as: Performed at: [address] [id number] Supervisor [employer] Fabricating: Xu Emery MD, Phone: [phone] Amended result called to: [] - 12/18/18 at 1012 No lupus anticoagulant was detected. These results are consistent with specific inhibitors to one or more common pathway factors (X, V, II or fibrinogen). Performed at: [address] [id number] Supervisor Metal Fabricating: Xu Emery MD, Phone: [phone] Result: [id number] Two copies of the same mutation ([id number]) identified Interpretation: This individual is homozygous for the MTHFR U8380R variant (two copies). The MTHFR C677T variant [...] common variants in the MTHFR gene, c.655c>T (p.Fnq435Fyfj), referred to as C677T, and c.1286A>C (p.Lak919Qcn), referred to as C3731B. Individuals homozygous for C677T (two copies of [...] conditions in the absence of hyperhomocysteinemia. The A8935S variant is not associated with elevated homocysteine levels unless a C677T variant is also present; however, the clinical significance of heterozygosity for both C677T and F9958D is controversial. Population data suggest that these [...] health care providers to discuss results at [phone] [place]. Methodology: DNA analysis of the MTHFR gene was performed by PCR amplification followed by restriction analysis. The diagnostic sensitivity is >99% for both. Molecular-based testing is highly accurate, but as in any laboratory test, rare diagnostic errors may occur. All test results must be combined with clinical information for the most accurate interpretation. This test was developed and its performance characteristics determined by [employer]. It has not been cleared or approved [...] FACMG Erika Arreguin, PhD, FACMG Martha Mcnulty M.S., PhD, FACMG Luzma Maria, PhD, FACMG Jihan Goddard, PhD, FACMG Sam Atkins, PhD, FAC Performed at: [facility] [place], [place] [id number] Supervisor Metal Fabricating: iAme Foster MD, Phone: [phone] Procedures Date Code Description Status 12/06/2018 43899 Bronchospasm Provocation Evaluation Multi Spirometric Completed Determinati 12/06/2018 15888 Spirometry Completed 11/08/2018 82359 Echocardiogram Complete Completed Medical Devices Description No Information Available [...] unspecified Office Visit 12/29/2018 9:20a Pulmonology Mavis Salmeron J44.9 Chronic obstructive PA pulmonary disease, unspecified [...] unspecified Office Visit 11/19/2018 8:00a Pulmonology Mavis Salmeron J44.9 Chronic obstructive PA pulmonary disease, unspecified I26.99 Other pulmonary embolism without acute cor pulmonale R05 Cough Assessments Date Code Description Provider 05/02/2019 J02.9 Acute pharyngitis, unspecified Shahnaz Sun FNP 05/02/2019 R10.30 Lower abdominal pain, unspecified Harrison-Shahnaz Leyva, DRIER 04/02/2019 K85.90 Acute pancreatitis without necrosis or Art Nascimento M.D. 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 complications 03/30/2019 R10.13 Epigastric pain Art Nascimento M.D. 03/30/2019 K21.9 Gastro-esophageal reflux disease Art Nascimento M.D. without esophagitis 03/29/2019 K85.90 Acute pancreatitis without necrosis or Art Nascimento M.D. infection, unspecified 03/29/2019 I26.99 Other pulmonary embolism without acute Boufal, Paulina, DO cor pulmonale 03/29/2019 R94.5 Abnormal results of liver function Samy Clements MD studies 03/29/2019 E11.9 Type 2 diabetes mellitus without Art Nascimento M.D. complications 03/29/2019 R10.13 Epigastric pain Paulina Cooper, DO 03/29/2019 R10.13 Epigastric pain Samy Clements MD 03/29/2019 Z79.01 prison (current) use of Art Nascimento M.D. anticoagulants 03/29/2019 R94.5 Abnormal results of liver function BoufalWinniet, DO studies 03/28/2019 I26.99 Other pulmonary embolism without acute Boufal, Paulina, DO cor pulmonale 03/28/2019 I26.99 Other pulmonary embolism without acute Oncology Nurse cor pulmonale 03/28/2019 D64.9 Anemia, unspecified Boufal, Paulina, DO 03/28/2019 D64.9 Anemia, unspecified Oncology Nurse 03/28/2019 E56.9 Vitamin deficiency, unspecified Boufal, Paulina, DO 03/28/2019 E56.9 Vitamin deficiency, unspecified Oncology Nurse 01/10/2019 I26.99 Other pulmonary embolism without acute Boufal, Paulina, DO cor pulmonale 01/10/2019 I26.99 Other pulmonary embolism without acute Oncology Nurse cor pulmonale 01/10/2019 J44.9 Chronic obstructive pulmonary disease, Boufal, Paulina, DO unspecified 01/10/2019 J44.9 Chronic obstructive pulmonary disease, Oncology Nurse unspecified 01/10/2019 D64.9 Anemia, unspecified Boufal, Paulina, DO 01/10/2019 D64.9 Anemia, unspecified Oncology Nurse 01/03/2019 I26.99 Other pulmonary embolism without acute Boufal, Paulina, DO cor pulmonale 01/03/2019 E56.9 Vitamin deficiency, unspecified Boufal, Paulina, DO 12/29/2018 J44.9 Chronic obstructive pulmonary disease, Walrath, Mavis, PA unspecified 12/29/2018 I26.99 Other pulmonary embolism without acute Walrath, Mavis, PA cor pulmonale 12/14/2018 I26.99 Other pulmonary embolism without acute Boufal, Paulina, DO cor pulmonale 12/14/2018 I26.99 Other pulmonary embolism without acute Boufal, Paulina, DO cor pulmonale 12/14/2018 J44.9 Chronic obstructive pulmonary disease, Boufal, Paulina, DO unspecified 12/14/2018 J44.9 Chronic obstructive pulmonary disease, Boufal, Paulina, DO unspecified 12/14/2018 D64.9 Anemia, unspecified Boufal, Paulina, DO 12/14/2018 D64.9 Anemia, unspecified Boufal, Paulina, DO 12/06/2018 J44.9 Chronic obstructive pulmonary disease, Jaison Lewis MD unspecified 11/19/2018 J44.9 Chronic obstructive pulmonary disease, Walr[place], Mavis, PA unspecified 11/19/2018 I26.99 Other pulmonary embolism without acute Walrath, Mavis, PA cor pulmonale 11/19/2018 R05 Cough Walrath, Mavis, PA 11/10/2018 R06.02 Shortness of breath Aditya Strauss M.D. 11/10/2018 I26.99 Other pulmonary embolism without acute Aditya Strauss M.D. cor pulmonale 11/10/2018 J44.9 Chronic obstructive pulmonary disease, Aditya Strauss M.D. unspecified 11/10/2018 I28.8 Other diseases of pulmonary vessels Aditya Strauss M.D. 11/09/2018 I26.99 Other pulmonary embolism without acute Boufal, Paulina, DO cor pulmonale 11/09/2018 R06.02 Shortness of breath Aditya Strauss M.D. 11/09/2018 J44.9 Chronic obstructive pulmonary disease, Boufal, Paulina, DO unspecified 11/09/2018 I26.99 Other pulmonary embolism without acute Aditya Strauss M.D. cor pulmonale 11/09/2018 Z82.49 Family history of ischemic heart Boufal, Paulina, DO disease and other diseases of the circulatory system 11/09/2018 J44.9 Chronic obstructive pulmonary disease, Aditya Strauss M.D. unspecified 11/09/2018 R05 Cough Boufal, Paulina, DO 11/09/2018 I28.8 Other diseases of pulmonary vessels Aditya Strauss M.D. 11/08/2018 R94.31 Abnormal electrocardiogram [ECG] [EKG] Augie Garcia MD 11/08/2018 I26.99 Other pulmonary embolism without acute Boufal, Paulina, DO cor pulmonale 11/08/2018 J96.00 Acute respiratory failure, unspecified Jaison Lewis MD whether with hypoxia or hypercapnia 11/08/2018 R00.0 Tachycardia, unspecified Augie Garcia MD 11/08/2018 J44.9 Chronic obstructive pulmonary disease, Boufal, Paulina, DO unspecified 11/08/2018 R06.02 Shortness of breath dAitya Strauss M.D. 11/08/2018 J44.9 Chronic obstructive pulmonary disease, Augie Garcia MD unspecified 11/08/2018 Z82.49 Family history of ischemic heart Boufal, Paulina, DO disease and other diseases of the circulatory system 11/08/2018 J44.9 Chronic obstructive pulmonary disease, Jaison Lewis MD unspecified 11/08/2018 R05 Cough Paulina Cooper, DO 11/08/2018 I26.99 Other pulmonary embolism without acute Aditya Strauss M.D. cor pulmonale 11/08/2018 I26.99 Other pulmonary embolism without acute Jaison Lewis MD cor pulmonale 11/08/2018 J44.9 Chronic obstructive pulmonary disease, Aditya Strauss M.D. unspecified 11/08/2018 R05 Cough Jaison Lewis MD 11/08/2018 R05 Cough Aditya Strauss M.D. 11/07/2018 R06.02 Shortness of breath Lizy Berrios NP 11/07/2018 I26.99 Other pulmonary embolism without acute Lizy Berrios NP cor pulmonale 11/07/2018 J44.9 Chronic obstructive pulmonary disease, Lizy Berrios NP unspecified 11/07/2018 I28.8 Other diseases of pulmonary vessels Lizy Berrios NP Plan of Treatment Future Appointment(s):07/06/2019 10:00 am - Mavis Salmeron PA at [id number]/ 04/2019 - Shahnaz Sun, [id number] Acute pharyngitis, [...]
[2019-06-02 14:52] VITALS: BP 142/65
--- NOTE | 2019-06-02 15:27 | UC ---
Complaint Female HPI - HPI Summary HPI Summary: Patient presents to urgent care with concern of a vaginal yeast infection. Patient's a 74-year-old female who just started a second antibiotic this week. Patient was on antibiotic for possible infection with her Mediport. Patient states 4 days ago she started having some vaginal itching and burning. Patient states she feels like her labia are dry. Patient does wear sedentary liner for urinary incontinence. Patient states 2 days ago she started antibiotic for an oral lesion. Patient scheduled to start chemotherapy next Thursday for pancreatic mass. Patient reports mild vaginal itching. No odor. Patient denies any new lubricants douches or vaginal suppositories. Patient denies bleeding or pain with intercourse. Patient has had yeast infections in the past but it's been a while. Patient's medications is entered in the EMR by the triage nurse review this visit. Of note, patient does have a liquids. 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 Additionally, patient has a prescription for Zofran. Patient has not used this in several days she states. - History Of Current Complaint Chief Complaint: UCGeneralIllness Stated Complaint: PERSONAL Time Seen by Provider: 06/02/19 15:13 Hx Obtained From: Patient Hx Last Menstrual Period: "years ago." ?: No Pain Intensity: 0 - Allergies/Home Medications Allergies/Adverse Reactions: Allergies Allergy/AdvReac Type Severity Reaction Status Date / Time celecoxib [From Celebrex] Allergy Swelling Verified 06/02/19 14:46 fluoxetine [From Prozac] Allergy irritable Verified 06/02/19 14:46 levofloxacin [From Levaquin] Allergy Rash Verified 06/02/19 14:46 nickel Allergy Itching Verified 06/02/19 14:46 Home Medications: Home Medications Clindamycin Cap(NF) [Clindamycin Cap 300 mg Cap(NF)] 1 cap Q8HR 06/02/19 [ History Confirmed 06/02/19] Folic Acid TAB* [Folvite TAB*] 1 tab DAILY 06/02/19 [History Confirmed 06/02/19] Ondansetron TAB* [Zofran 4 MG Tab*] 1 tab TID PRN 06/02/19 [History Confirmed ] Pancrelipase (NF) [Creon (NF)] 1 cap TID 06/02/19 [History Confirmed 06/02/19] PMH/Surg Hx/FS Hx/Imm Hx Previously Healthy: No - DVT, pancreatic CA, HTN Cardiovascular History: Hypertension, Deep Vein Thrombosis Other History Of: Negative For: HIV, Hepatitis B, Hepatitis C, Anticoagulant Therapy - Surgical History Surgical History: Yes Surgery Procedure, Year, and Place: uterine ablation, t&a , hips, ankle, cataracts - Family History Known Family History: Positive: Cardiac Disease Negative: Hypertension - Social History Alcohol Use: None Substance Use Type: None Smoking Status (MU): Never Smoked Tobacco Review of Systems All Other Systems Reviewed And Are Negative: Yes Constitutional: Positive: Negative Genitourinary: Positive: Vaginal/Penile Itching, Vaginal/Penile Discharge Physical Exam - Summary Physical Exam Summary: Vital Signs Reviewed: Yes A+Ox3, no distress Eyes: Conjunctiva Clear, SOLE. EOM intact and full ENT: Hearing grossly normal TM x 2 clear, mmoist, uvula midline, no exudate, no erythema Neck: Positive: Supple Respiratory: Positive: No respiratory distress, No accessory muscle use + CTA throughout no w/r Cardiovascular: RRR nl s1, s2 no m/r CBT <2 sec abd soft + BS nt/nd no guarding, no distension, no CVA : RN at bedside Pt with discharge c/w vaginal yeast infection - affirm taken pt wtih erythema of labia majora. no bleeding no odor Musculoskeletal Exam: YUAN x 4 without difficulty Strength Intact, ROM Intact Neurological: Positive: Alert, + sensation throughout Psychological: Positive: Normal Response To examiner Skin: Positive: no rash, no ecchymosis Triage Information Reviewed: Yes Vital Signs: Initial Vital Signs Temp 98.8 F 06/02/19 14:49 Pulse 91 06/02/19 14:49 Resp 16 06/02/19 14:49 BP 142/65 06/02/19 14:49 Pulse Ox 100 06/02/19 14:49 Complaint Female Dx - Course Course Of Treatment: Patient presents to urgent care concerned she may have a vaginal yeast infection. Patient on a second run of antibiotics in the last several weeks. Patient reports some dryness as well as itching in her vaginal area. No odor. On exam vital signs are stable. Patient nontoxic appearing. Patient does have some vaginal discharge consistent with yeast. Patient is on Eliquis. Spoke to Hospital pharmacist who states one dose of Diflucan is okay - is a level C recommendation. Additionally the patient has a prescription for Zofran. Discussed with patient has not taken several days. Asked patient to take for 1- 2 days after taking the Diflucan. Patient states understanding and agreement with plan. Strict return precautions discussed. Patient aware that there is a culture pending a 22 days to come back and she'll receive a call from a care team members any changes. - Differential Dx/Diagnosis Provider Diagnosis: Vaginitis Discharge ED - Sign-Out/Discharge Documenting (check all that apply): Patient Departure All imaging exams completed and their final reports reviewed: No Studies - Discharge Plan Condition: Stable Disposition: HOME Prescriptions: Fluconazole [Diflucan 150 MG (NF)] 150 mg PO ONCE PRN #1 tab PRN Reason: vaginal yeast infection Patient Education Materials: Yeast Infection (ED), Vaginitis (ED) Referrals: Jan Sumner PA [Primary Care Provider] - Joanne Polanco MD [Medical Doctor] - Paulina Cooper DO [Doctor of Osteopathy] - Additional Instructions: - Take Diflucan - one time dose today - for vaginal yeast infection. As discussed, do not take zofran (medication for nausea) for at least 24 hours- - As discussed, a sample has been sent for additional testing for yeast infection. These results take 2-3 days to come back. If you need a different treatment, you will receive a call from a care team foreman - If is recommneded you use vasoline ointment or A+D ointment as a barrier moisturizer to your labia - Contact your doctor or Dr. Polanco to schedule a follow-up appointment of if you are having any other questions or concerns - Billing Disposition and Condition Condition: STABLE Disposition: Home
--- NOTE | 2019-06-04 07:57 | UC ---
- Progress Note Progress Note: + yeny. treated w/ diflcuan Course/Dx - Diagnoses Provider Diagnoses: Vaginitis Discharge ED - Sign-Out/Discharge Documenting (check all that apply): Post-Discharge Follow Up All imaging exams completed and their final reports reviewed: No Studies - Discharge Plan Condition: Stable Disposition: HOME Prescriptions: Fluconazole [Diflucan 150 MG (NF)] 150 mg PO ONCE PRN #1 tab PRN Reason: vaginal yeast infection Patient Education Materials: Yeast Infection (ED), Vaginitis (ED) Referrals: Jan Sumner PA [Primary Care Provider] - Joanne Polanco MD [Medical Doctor] - Paulina Cooper DO [Doctor of Osteopathy] - Additional Instructions: - Take Diflucan - one time dose today - for vaginal yeast infection. As discussed, do not take zofran (medication for nausea) for at least 24 hours- - As discussed, a sample has been sent for additional testing for yeast infection. These results take 2-3 days to come back. If you need a different treatment, you will receive a call from a care food service team member - If is recommneded you use vasoline ointment or A+D ointment as a barrier moisturizer to your labia - Contact your doctor or Dr. Polanco to schedule a follow-up appointment of if you are having any other questions or concerns - Billing Disposition and Condition Condition: STABLE Disposition: Home
== END 2019-06-02 16:04 | disposition home or self-care (01) ==
LOC: UCCORT 14:17
DX: N76.0 Acute vaginitis (principal); L29.2 Pruritus vulvae; I10 Essential (primary) hypertension; Z79.01 Long term (current) use of anticoagulants; Z88.1 Allergy status to other antibiotic agents; Z88.8 Allergy status to other drugs, medicaments and biological substances
CPT/HCPCS: 87480; 87510; 99212; G0463